=== PATIENT | male | born 1965 | race Caucasian/White ===

== ENCOUNTER → 2017-02-24 | Outpatient (REF) | payer OTHER ==
[~2017-02-24] MED LIST: ALLO100T PO; ASPI325T PO; DIGO0.126 PO; LISI5TAB PO; LOPR1TAB6 PO; LOPR50TA PO; METO25TA4 PO; PERC5TAB12 PO; XARE20TA PO
== END ==
LOC: M LAB REF 13:07
PROVIDERS: ATTEND Orthopaedic Surgery
DX: Z96.9 Presence of functional implant, unspecified (principal)

== ENCOUNTER 2017-07-14 15:01 | Inpatient (IN) | payer MEDICAID, OTHER, SELFPAY ==
[2017-07-14 16:36] LABS: BASO % 0.3 % (0.0-1.0); HEMATOCRIT 26.4 % (42.0-52.0); HEMOGLOBIN 8.8 g/dl (14.0-18.0); IMMATURE GRANULOCYTE # 0.1 10^3/uL (0-0); IMMATURE GRANULOCYTE % 0.4 % (0-0); LYMPH # 0.9 10^3/uL (1.5-4.5); LYMPH % 7.7 % (24.0-44.0); MEAN CORPUSCULAR HEMOGLOBIN 31.5 pg (27.0-33.0); MEAN CORPUSCULAR HGB CONC 33.3 g/dl (32.0-36.5); MEAN CORPUSCULAR VOLUME 94.6 fl (80.0-96.0); MONO # 1.2 10^3/uL (0.0-0.8); NEUTROPHILS # 9.1 10^3/uL (1.8-7.7); NEUTROPHILS % 80.6 % (36.0-66.0); PLATELET COUNT, AUTOMATED 182 10^3/uL (150-450); RED BLOOD COUNT 2.79 10^6/uL (4.30-6.10); RED CELL DISTRIBUTION WIDTH 12.8 % (11.5-14.5); WHITE BLOOD COUNT 11.3 10^3/uL (4.0-10.0)
[2017-07-14] MEDS: MORPHINE 4 MG/ML 1ML SYRINGE IV ×2 (17:00→19:10)
[2017-07-14] MEDS: NS 500 ML IV (17:00)
[2017-07-14 17:05] LABS: ALBUMIN 2.4 GM/DL (3.2-5.2); ALBUMIN/GLOBULIN RATIO 0.34 (1.00-1.93); ALKALINE PHOSPHATASE 59 U/L (45-117); ALT/SGPT 10 U/L (12-78); ANION GAP 11 MEQ/L (8-16); AST/SGOT 41 U/L (7-37); BILIRUBIN,DIRECT 0.3 MG/DL (0.0-0.2); BILIRUBIN,TOTAL 0.8 MG/DL (0.2-1.0); BLOOD UREA NITROGEN 13 MG/DL (7-18); CALCIUM LEVEL 8.5 MG/DL (8.5-10.1); CARBON DIOXIDE LEVEL 25 MEQ/L (21-32); CHLORIDE LEVEL 95 MEQ/L (98-107); CPK CREATINE PHOSPHOKINASE 38 U/L (39-308); CREATININE FOR GFR 1.09 MG/DL (0.70-1.30); FREE T4 1.66 NG/DL (0.76-1.46); GLOMERULAR FILTRATION RATE > 60.0 (>56); GLUCOSE, FASTING 142 MG/DL (70-105); MB/CK RELATIVE INDEX 2.63 (< OR =4); SODIUM LEVEL 131 MEQ/L (136-145); TOTAL PROTEIN 9.5 GM/DL (6.4-8.2); TROPONIN I < 0.02 NG/ML (< 0.10)
[2017-07-14 17:11] LABS: POTASSIUM SERUM 4.2 MEQ/L (3.5-5.1)
[2017-07-14] MEDS ORDERED: ISOVUE-370 76% 100ML VIAL (Q9967) As Ordered (17:20)
[2017-07-14] MEDS: ONDANSETRON 4MG/2ML VIAL (J2405) IV (17:20)
[2017-07-14 17:38] LABS: INR 1.36; PROTHROMBIN TIME 17.1 SECONDS (12.4-14.5)
[2017-07-14 17:39] LABS: PARTIAL THROMBOPLASTIN TIME 47.9 SECONDS (26.8-37.9)
[2017-07-14] MEDS: PIPERACILLIN/TAZOBACTAM SOD 3.375 GM in APPROPRIATE DILUENT 1 EA IV (19:55)
[2017-07-14] MEDS: VANCOMYCIN HCL 1,000 MG, VIAL MATE ADAPTER 1 EACH in D5W 250 ML IV (22:37)
[2017-07-14] MEDS: ACETAMINOPHEN TAB 650MG DOSE (2X325MG) PO (23:36)
[2017-07-14] MEDS: METOPROLOL TART 50 MG TAB PO (23:38)
[2017-07-14] MEDS: ALLOPURINOL 300 MG TAB PO (23:39)
[2017-07-15] MEDS: ACETAMINOPHEN TAB 650MG DOSE (2X325MG) PO ×2 (04:08→08:57)
[2017-07-15] MEDS: NS 1,000 ML IV ×3 (04:09→19:50)
[2017-07-15] MEDS: HEPARIN SOD (PORCINE) 5000 UNITS/ML VIAL SC ×3 (06:31→21:36)
[2017-07-15 06:33] LABS: BASO % 0.3 % (0.0-1.0); EOS % 0.2 % (0.0-3.0); HEMATOCRIT 24.6 % (42.0-52.0); IMMATURE GRANULOCYTE # 0.1 10^3/uL (0-0); IMMATURE GRANULOCYTE % 0.6 % (0-0); LYMPH % 8.2 % (24.0-44.0); MEAN CORPUSCULAR HEMOGLOBIN 30.9 pg (27.0-33.0); MEAN CORPUSCULAR HGB CONC 32.5 g/dl (32.0-36.5); MONO # 1.9 10^3/uL (0.0-0.8); MONO % 15.3 % (0.0-5.0); NEUTROPHILS # 9.1 10^3/uL (1.8-7.7); NEUTROPHILS % 75.4 % (36.0-66.0); PLATELET COUNT, AUTOMATED 170 10^3/uL (150-450); RED BLOOD COUNT 2.59 10^6/uL (4.30-6.10); RED CELL DISTRIBUTION WIDTH 13.1 % (11.5-14.5); WHITE BLOOD COUNT 12.1 10^3/uL (4.0-10.0)
[2017-07-15 06:47] LABS: ESTIMATED AVERAGE GLUCOSE 108 MG/DL (60-110); HEMOGLOBIN A1c 5.4 %
[2017-07-15 07:02] LABS: ANION GAP 8 MEQ/L (8-16); BLOOD UREA NITROGEN 15 MG/DL (7-18); CALCIUM LEVEL 8.6 MG/DL (8.5-10.1); CARBON DIOXIDE LEVEL 27 MEQ/L (21-32); CHLORIDE LEVEL 97 MEQ/L (98-107); CREATININE FOR GFR 1.24 MG/DL (0.70-1.30); FERRITIN 457 NG/ML (26-388); GLOMERULAR FILTRATION RATE > 60.0 (>56); GLUCOSE, FASTING 141 MG/DL (70-105); IRON (FE) 22 UG/DL (65-175); PERCENT SATURATION 10.5 % (19.7-50.0); POTASSIUM SERUM 3.6 MEQ/L (3.5-5.1); SODIUM LEVEL 132 MEQ/L (136-145); TOTAL IRON BINDING CAPACITY 209 UG/DL (250-450)
[2017-07-15] MEDS: VITAMIN D 1,000 INTERNATIONAL UNITS TABLET PO (08:53)
[2017-07-15] MEDS: PANTOPRAZOLE 40MG TAB (PROTONIX) PO (08:53)
[2017-07-15] MEDS: CYANOCOBALAMIN 500 MCG TAB PO (08:53)
[2017-07-15] MEDS: METOPROLOL TART 50 MG TAB PO ×2 (08:53→21:36)
[2017-07-15] MEDS: INFLUENZA QUADRIVALENT PF VACCINE 0.5ML SYRINGE (90686) IM (08:55)
[2017-07-15 11:07] LABS: VITAMIN B12 LEVEL 1179 PG/ML (247-911)
[2017-07-15 11:21] LABS: FOLATE 14.4 NG/ML (>5.4)
[2017-07-15] MEDS: PERCOCET 5MG/325MG TAB PO ×2 (14:25→19:49)
[2017-07-15 14:35] LABS: APPEARANCE, URINE CLOUDY (CLEAR); BACTERIA, URINE AUTO NEGATIVE (NEGATIVE); BILIRUBIN, URINE AUTO NEGATIVE (NEGATIVE); BLOOD, URINE BLOOD 3+ (NEGATIVE); COLOR, URINE YELLOW (YELLOW); GLUCOSE, URINE (UA) AUTO NEGATIVE (NEGATIVE); KETONE, URINE AUTO NEGATIVE (NEGATIVE); LEUKOCYTE ESTERASE, URINE AUTO 1+ (NEGATIVE); MUCUS, URINE SMALL (NEGATIVE); NITRITE, URINE AUTO NEGATIVE (NEGATIVE); PROTEIN, URINE AUTO NEGATIVE (NEGATIVE); RBC, URINE AUTO 19 /HPF (0-3); SPECIFIC GRAVITY URINE AUTO 1.013 (1.002-1.035); SQUAMOUS EPITHELIAL CELL UR AU 0 /HPF (0-6); UROBILINOGEN, URINE AUTO 0.2 mg/dL (0.0-2.0); WBC, URINE AUTO 22 /HPF (0-3)
[2017-07-15] MEDS ORDERED: IPRATROPIUM 0.5MG/ALBUTEROL 2.5MG INH SOL UD 3ML (DUONEB)(J7620) NEB (19:45)
[2017-07-15] MEDS ORDERED: VANCOMYCIN HCL 1,000 MG, VIAL MATE ADAPTER 1 EACH in D5W 250 ML IV (20:00)
[2017-07-15] MEDS ORDERED: SENNA 8.6 MG TAB (SENOKOT) PO (21:15)
[2017-07-15] MEDS: POTASSIUM CHLORIDE 10 MEQ SR TABLET PO (21:33)
[2017-07-15] MEDS: guaiFENesin 200 MG TAB PO (21:33)
[2017-07-15] MEDS: VANCOMYCIN HCL 1,000 MG, VIAL MATE ADAPTER 1 EACH in D5W 250 ML IV ×2 (21:37→22:54)
[2017-07-15] MEDS: ALLOPURINOL 300 MG TAB PO (21:37)
[2017-07-15] MEDS: NS 500 ML IV (21:39)
[2017-07-16] MEDS: PIPERACILLIN/TAZOBACTAM SOD 4.5 GM in APPROPRIATE DILUENT 1 EA IV ×4 (00:28→16:28)
[2017-07-16] MEDS: ACETAMINOPHEN TAB 650MG DOSE (2X325MG) PO (00:41)
[2017-07-16 01:12] LABS: BEDSIDE GLUCOSE 142 MG/DL (70-105)
[2017-07-16] MEDS: HEPARIN SOD (PORCINE) 5000 UNITS/ML VIAL SC (05:20)
[2017-07-16 06:30] LABS: BASO % 0.3 % (0.0-1.0); EOS # 0.1 10^3/uL (0.0-0.50); EOS % 1.4 % (0.0-3.0); HEMATOCRIT 22.3 % (42.0-52.0); HEMOGLOBIN 7.2 g/dl (14.0-18.0); IMMATURE GRANULOCYTE % 0.5 % (0-0); LYMPH % 13.7 % (24.0-44.0); MEAN CORPUSCULAR HGB CONC 32.3 g/dl (32.0-36.5); MEAN CORPUSCULAR VOLUME 96.1 fl (80.0-96.0); MONO % 14.1 % (0.0-5.0); NEUTROPHILS # 5.2 10^3/uL (1.8-7.7); PLATELET COUNT, AUTOMATED 119 10^3/uL (150-450); RED BLOOD COUNT 2.32 10^6/uL (4.30-6.10); RETIC HEMOGLOBIN EQUIVALENT 30.9 pg (24-36); RETICULOCYTE # 47.3 10^9/L (17-77); WHITE BLOOD COUNT 7.4 10^3/uL (4.0-10.0)
[2017-07-16 06:41] LABS: PROTHROMBIN TIME 17.5 SECONDS (12.4-14.5)
[2017-07-16 06:43] LABS: ANION GAP 6 MEQ/L (8-16); BLOOD UREA NITROGEN 14 MG/DL (7-18); CARBON DIOXIDE LEVEL 28 MEQ/L (21-32); CHLORIDE LEVEL 101 MEQ/L (98-107); CREATININE FOR GFR 1.11 MG/DL (0.70-1.30); GLOMERULAR FILTRATION RATE > 60.0 (>56); GLUCOSE, FASTING 118 MG/DL (70-105); POTASSIUM SERUM 3.6 MEQ/L (3.5-5.1); SODIUM LEVEL 135 MEQ/L (136-145)
[2017-07-16 06:47] LABS: LACTIC ACID SEPSIS PROTOCOL 0.8 MMOL/L (0.4-2.0)
[2017-07-16] MEDS: NS 1,000 ML IV ×3 (08:32→20:14)
[2017-07-16] MEDS: VANCOMYCIN HCL 1,000 MG, VIAL MATE ADAPTER 1 EACH in D5W 250 ML IV ×2 (08:32→20:14)
[2017-07-16] MEDS: CYCLOBENZAPRINE 5MG TABLET PO (08:33)
[2017-07-16] MEDS: VITAMIN D 1,000 INTERNATIONAL UNITS TABLET PO (08:34)
[2017-07-16] MEDS: METOPROLOL TART 50 MG TAB PO ×2 (08:34→20:20)
[2017-07-16] MEDS: guaiFENesin 200 MG TAB PO ×2 (08:34→20:16)
[2017-07-16] MEDS: CYANOCOBALAMIN 500 MCG TAB PO (08:34)
[2017-07-16] MEDS: PANTOPRAZOLE 40MG TAB (PROTONIX) PO (08:34)
[2017-07-16] MEDS: LIDOCAINE 5% (LIDODERM) PATCH TD (08:35)
[2017-07-16] MEDS: POTASSIUM CHLORIDE 10 MEQ SR TABLET PO (08:58)
[2017-07-16] MEDS ORDERED: ISOVUE-370 76% 100ML VIAL (Q9967) As Ordered (09:44)
[2017-07-16 09:51] LABS: RHEUMATOID FACTOR QUANT < 10.0 IU/ML (0-15.0)
[2017-07-16 10:06] LABS: ERYTHROCYTE SEDIMENTATION RATE 127 mm/hr (0-20)
[2017-07-16] MEDS: PERCOCET 5MG/325MG TAB PO ×2 (10:16→16:40)
[2017-07-16] MEDS ORDERED: PROHANCE 279.3MG/ML 5ML VIAL (A9576) As Ordered (12:53)
[2017-07-16] MEDS ORDERED: PROHANCE 279.3MG/ML 15ML VIAL (A9576) As Ordered (12:54)
[2017-07-16 14:53] LABS: HEMATOCRIT 25.9 % (42.0-52.0); HEMOGLOBIN 8.2 g/dl (14.0-18.0)
[2017-07-16] MEDS: ALLOPURINOL 300 MG TAB PO (20:17)
[2017-07-16] MEDS: **NOTE PATIENT COMMENT** MISC XX (20:20)
[2017-07-16 22:12] LABS: HEMATOCRIT 25.8 % (42.0-52.0); HEMOGLOBIN 8.2 g/dl (14.0-18.0)
[2017-07-17] MEDS: ACETAMINOPHEN TAB 650MG DOSE (2X325MG) PO (03:34)
[2017-07-17] MEDS: NS 1,000 ML IV ×2 (05:07→10:38)
[2017-07-17] MEDS: LIDOCAINE 5% (LIDODERM) PATCH TD (07:44)
[2017-07-17] MEDS: VANCOMYCIN HCL 1,000 MG, VIAL MATE ADAPTER 1 EACH in D5W 250 ML IV (07:44)
[2017-07-17] MEDS: CYANOCOBALAMIN 500 MCG TAB PO (07:46)
[2017-07-17] MEDS: guaiFENesin 200 MG TAB PO (07:46)
[2017-07-17] MEDS: VITAMIN D 1,000 INTERNATIONAL UNITS TABLET PO (07:46)
[2017-07-17] MEDS: PANTOPRAZOLE 40MG TAB (PROTONIX) PO (07:46)
[2017-07-17] MEDS: PERCOCET 5MG/325MG TAB PO ×3 (07:46→19:48)
[2017-07-17] MEDS: METOPROLOL TART 50 MG TAB PO ×2 (07:56→19:47)
[2017-07-17 09:51] LABS: BASO % 0.3 % (0.0-1.0); EOS # 0.1 10^3/uL (0.0-0.50); EOS % 1.1 % (0.0-3.0); HEMATOCRIT 21.8 % (42.0-52.0); IMMATURE GRANULOCYTE % 0.7 % (0-0); LYMPH # 0.8 10^3/uL (1.5-4.5); LYMPH % 12.5 % (24.0-44.0); MEAN CORPUSCULAR HEMOGLOBIN 30.7 pg (27.0-33.0); MEAN CORPUSCULAR HGB CONC 32.1 g/dl (32.0-36.5); MEAN CORPUSCULAR VOLUME 95.6 fl (80.0-96.0); MONO # 0.7 10^3/uL (0.0-0.8); MONO % 11.1 % (0.0-5.0); NEUTROPHILS # 4.5 10^3/uL (1.8-7.7); NEUTROPHILS % 74.3 % (36.0-66.0); PLATELET COUNT, AUTOMATED 122 10^3/uL (150-450); RED BLOOD COUNT 2.28 10^6/uL (4.30-6.10); RED CELL DISTRIBUTION WIDTH 12.9 % (11.5-14.5); WHITE BLOOD COUNT 6.1 10^3/uL (4.0-10.0)
[2017-07-17] MEDS ORDERED: CEFAZOLIN SOD 2 GM in APPROPRIATE DILUENT 1 EA IV (10:00)
[2017-07-17 10:15] LABS: ANION GAP 6 MEQ/L (8-16); BLOOD UREA NITROGEN 9 MG/DL (7-18); C REACTIVE PROTEIN QUANTITATIV 9.32 MG/DL (0.00-0.30); CALCIUM LEVEL 7.7 MG/DL (8.5-10.1); CARBON DIOXIDE LEVEL 27 MEQ/L (21-32); CHLORIDE LEVEL 104 MEQ/L (98-107); CREATININE FOR GFR 1.06 MG/DL (0.70-1.30); GLOMERULAR FILTRATION RATE > 60.0 (>56); GLUCOSE, FASTING 157 MG/DL (70-105); POTASSIUM SERUM 3.4 MEQ/L (3.5-5.1); SODIUM LEVEL 137 MEQ/L (136-145)
[2017-07-17 10:30] LABS: ERYTHROCYTE SEDIMENTATION RATE 126 mm/hr (0-20)
[2017-07-17 11:29] LABS: BEDSIDE GLUCOSE 137 MG/DL (70-105)
[2017-07-17] MEDS: POTASSIUM CHLORIDE 10 MEQ SR TABLET PO (12:44)
[2017-07-17] MEDS: GABAPENTIN 100 MG CAP PO ×2 (12:45→19:46)
[2017-07-17 13:25] LABS: KETONE, URINE AUTO RFX NEGATIVE (NEGATIVE); LEUKOCYTE ESTERASE UR AUTO RFX NEGATIVE (NEGATIVE); NITRITE, URINE AUTO RFX NEGATIVE (NEGATIVE); RBC, URINE AUTO RFX 18 /HPF (0-3); SPECIFIC GRAVITY UR AUTO RFX 1.006 (1.002-1.035); SQUAM EPITHELIAL CELL UR AURFX 0 /HPF (0-6); WBC, URINE AUTO RFX 5 /HPF (0-3)
[2017-07-17 16:55] LABS: BEDSIDE GLUCOSE 149 MG/DL (70-105)
[2017-07-17 17:35] LABS: HEPATITIS B SURFACE ANTIGEN NEGATIVE (NEGATIVE)
[2017-07-17 17:45] LABS: HIV 1&2 SCREEN CENTAUR NEGATIVE (NEGATIVE)
[2017-07-17 17:58] LABS: HEPATITIS C VIRUS ABY INDEX 0.2 INDEX (<0.8)
[2017-07-17 17:58] LABS: HEPATITIS B CORE ANTIBODY IGM NEGATIVE (NEGATIVE)
[2017-07-17] MEDS: guaiFENesin ER 600 MG TAB PO (19:46)
[2017-07-17] MEDS: ALLOPURINOL 300 MG TAB PO (19:46)
[2017-07-17] MEDS: **NOTE PATIENT COMMENT** MISC XX (19:47)
[2017-07-17] MEDS ORDERED: PROHANCE 279.3MG/ML 15ML VIAL (A9576) As Ordered (21:37)
[2017-07-17] MEDS ORDERED: PROHANCE 279.3MG/ML 5ML VIAL (A9576) As Ordered (21:37)
[2017-07-18] MEDS: PERCOCET 5MG/325MG TAB PO ×2 (04:13→10:35)
[2017-07-18 05:32] LABS: BASO % 0.3 % (0.0-1.0); EOS # 0.2 10^3/uL (0.0-0.50); EOS % 2.4 % (0.0-3.0); HEMATOCRIT 21.8 % (42.0-52.0); IMMATURE GRANULOCYTE % 0.6 % (0-0); LYMPH # 0.7 10^3/uL (1.5-4.5); MEAN CORPUSCULAR HEMOGLOBIN 31.3 pg (27.0-33.0); MEAN CORPUSCULAR HGB CONC 32.1 g/dl (32.0-36.5); MEAN CORPUSCULAR VOLUME 97.3 fl (80.0-96.0); MONO # 0.7 10^3/uL (0.0-0.8); MONO % 10.6 % (0.0-5.0); NEUTROPHILS # 4.7 10^3/uL (1.8-7.7); NEUTROPHILS % 75.1 % (36.0-66.0); PLATELET COUNT, AUTOMATED 128 10^3/uL (150-450); RED BLOOD COUNT 2.24 10^6/uL (4.30-6.10); RED CELL DISTRIBUTION WIDTH 12.8 % (11.5-14.5); WHITE BLOOD COUNT 6.2 10^3/uL (4.0-10.0)
[2017-07-18] MEDS: SODIUM CHLORIDE 0.9% INJ 10 ML SYR IV ×2 (06:00→18:04)
[2017-07-18 06:37] LABS: ANION GAP 6 MEQ/L (8-16); BLOOD UREA NITROGEN 6 MG/DL (7-18); CALCIUM LEVEL 7.7 MG/DL (8.5-10.1); CARBON DIOXIDE LEVEL 28 MEQ/L (21-32); CHLORIDE LEVEL 104 MEQ/L (98-107); CREATININE FOR GFR 0.96 MG/DL (0.70-1.30); GLOMERULAR FILTRATION RATE > 60.0 (>56); GLUCOSE, FASTING 118 MG/DL (70-105); IMMUNOGLOBULIN G 3260 MG/DL (681-1648); IMMUNOGLOBULIN M 75.6 MG/DL (40-230); POTASSIUM SERUM 3.6 MEQ/L (3.5-5.1); SODIUM LEVEL 138 MEQ/L (136-145)
[2017-07-18] MEDS: VITAMIN D 1,000 INTERNATIONAL UNITS TABLET PO (10:35)
[2017-07-18] MEDS: GABAPENTIN 100 MG CAP PO ×2 (10:35→20:05)
[2017-07-18] MEDS: CYANOCOBALAMIN 500 MCG TAB PO (10:35)
[2017-07-18] MEDS: PANTOPRAZOLE 40MG TAB (PROTONIX) PO (10:36)
[2017-07-18] MEDS: METOPROLOL TART 50 MG TAB PO ×2 (10:36→20:07)
[2017-07-18] MEDS: guaiFENesin ER 600 MG TAB PO ×2 (10:36→20:05)
[2017-07-18] MEDS: LIDOCAINE 5% (LIDODERM) PATCH TD (10:37)
[2017-07-18 12:11] LABS: BEDSIDE GLUCOSE 148 MG/DL (70-105)
[2017-07-18] MEDS ORDERED: ISOVUE-370 76% 100ML VIAL (Q9967) As Ordered (15:08)
[2017-07-18 16:45] LABS: BEDSIDE GLUCOSE 169 MG/DL (70-105)
[2017-07-18] MEDS: ALLOPURINOL 300 MG TAB PO (20:05)
[2017-07-18] MEDS: **NOTE PATIENT COMMENT** MISC XX (20:05)
[2017-07-18 22:04] LABS: BEDSIDE GLUCOSE 157 MG/DL (70-105)
[2017-07-19] MEDS: SODIUM CHLORIDE 0.9% INJ 10 ML SYR IV ×3 (03:34→18:23)
[2017-07-19 05:37] LABS: BASO % 0.4 % (0.0-1.0); EOS # 0.1 10^3/uL (0.0-0.50); EOS % 2.6 % (0.0-3.0); HEMATOCRIT 20.9 % (42.0-52.0); IMMATURE GRANULOCYTE % 0.6 % (0-0); LYMPH # 0.9 10^3/uL (1.5-4.5); LYMPH % 17.5 % (24.0-44.0); MEAN CORPUSCULAR HEMOGLOBIN 30.6 pg (27.0-33.0); MEAN CORPUSCULAR HGB CONC 31.6 g/dl (32.0-36.5); MEAN CORPUSCULAR VOLUME 96.8 fl (80.0-96.0); MONO # 0.5 10^3/uL (0.0-0.8); MONO % 10.2 % (0.0-5.0); NEUTROPHILS # 3.4 10^3/uL (1.8-7.7); NEUTROPHILS % 68.7 % (36.0-66.0); PLATELET COUNT, AUTOMATED 135 10^3/uL (150-450); RED BLOOD COUNT 2.16 10^6/uL (4.30-6.10); RED CELL DISTRIBUTION WIDTH 12.7 % (11.5-14.5); WHITE BLOOD COUNT 4.9 10^3/uL (4.0-10.0)
[2017-07-19 05:44] LABS: HEMOGLOBIN 6.6 g/dl (14.0-18.0)
[2017-07-19] MEDS: PERCOCET 5MG/325MG TAB PO ×3 (06:18→20:40)
[2017-07-19 06:38] LABS: ANION GAP 7 MEQ/L (8-16); BLOOD UREA NITROGEN 7 MG/DL (7-18); CALCIUM LEVEL 7.6 MG/DL (8.5-10.1); CARBON DIOXIDE LEVEL 28 MEQ/L (21-32); CHLORIDE LEVEL 105 MEQ/L (98-107); CREATININE FOR GFR 1.07 MG/DL (0.70-1.30); GLOMERULAR FILTRATION RATE > 60.0 (>56); GLUCOSE, FASTING 112 MG/DL (70-105); POTASSIUM SERUM 3.4 MEQ/L (3.5-5.1); SODIUM LEVEL 140 MEQ/L (136-145)
[2017-07-19 09:14] LABS: MAGNESIUM LEVEL 1.9 MG/DL (1.8-2.4)
[2017-07-19] MEDS: GABAPENTIN 100 MG CAP PO ×2 (09:22→20:39)
[2017-07-19] MEDS: VITAMIN D 1,000 INTERNATIONAL UNITS TABLET PO (09:22)
[2017-07-19] MEDS: guaiFENesin ER 600 MG TAB PO ×2 (09:22→20:39)
[2017-07-19] MEDS: PANTOPRAZOLE 40MG TAB (PROTONIX) PO (09:22)
[2017-07-19] MEDS: CYANOCOBALAMIN 500 MCG TAB PO (09:22)
[2017-07-19] MEDS: POTASSIUM CHLORIDE 10 MEQ SR TABLET PO (09:23)
[2017-07-19] MEDS: METOPROLOL TART 50 MG TAB PO ×2 (09:24→20:39)
[2017-07-19] MEDS: LIDOCAINE 5% (LIDODERM) PATCH TD (09:24)
[2017-07-19 11:42] LABS: IMMEDIATE SPIN CROSSMATCH 1 2
[2017-07-19 11:43] LABS: BEDSIDE GLUCOSE 163 MG/DL (70-105)
[2017-07-19] MEDS: ACETAMINOPHEN TAB 650MG DOSE (2X325MG) PO (14:12)
[2017-07-19 16:18] LABS: BEDSIDE GLUCOSE 141 MG/DL (70-105)
[2017-07-19] MEDS: ALLOPURINOL 300 MG TAB PO (20:39)
[2017-07-19] MEDS: **NOTE PATIENT COMMENT** MISC XX (20:41)
[2017-07-19 20:45] LABS: BEDSIDE GLUCOSE 169 MG/DL (70-105)
[2017-07-20] MEDS: PERCOCET 5MG/325MG TAB PO ×3 (05:11→20:46)
[2017-07-20] MEDS: SODIUM CHLORIDE 0.9% INJ 10 ML SYR IV ×2 (05:13→18:33)
[2017-07-20 05:23] LABS: BASO % 0.4 % (0.0-1.0); EOS # 0.3 10^3/uL (0.0-0.50); HEMATOCRIT 24.2 % (42.0-52.0); HEMOGLOBIN 7.9 g/dl (14.0-18.0); IMMATURE GRANULOCYTE % 0.6 % (0-0); LYMPH # 0.9 10^3/uL (1.5-4.5); LYMPH % 18.4 % (24.0-44.0); MEAN CORPUSCULAR HEMOGLOBIN 30.7 pg (27.0-33.0); MEAN CORPUSCULAR HGB CONC 32.6 g/dl (32.0-36.5); MEAN CORPUSCULAR VOLUME 94.2 fl (80.0-96.0); MONO # 0.6 10^3/uL (0.0-0.8); NEUTROPHILS # 3.2 10^3/uL (1.8-7.7); NEUTROPHILS % 64.6 % (36.0-66.0); PLATELET COUNT, AUTOMATED 167 10^3/uL (150-450); RED BLOOD COUNT 2.57 10^6/uL (4.30-6.10); RED CELL DISTRIBUTION WIDTH 13.5 % (11.5-14.5)
[2017-07-20 05:43] LABS: ANION GAP 5 MEQ/L (8-16); BLOOD UREA NITROGEN 9 MG/DL (7-18); CALCIUM LEVEL 7.6 MG/DL (8.5-10.1); CARBON DIOXIDE LEVEL 30 MEQ/L (21-32); CHLORIDE LEVEL 106 MEQ/L (98-107); CREATININE FOR GFR 1.05 MG/DL (0.70-1.30); GLOMERULAR FILTRATION RATE > 60.0 (>56); GLUCOSE, FASTING 111 MG/DL (70-105); POTASSIUM SERUM 3.5 MEQ/L (3.5-5.1); SODIUM LEVEL 141 MEQ/L (136-145)
[2017-07-20] MEDS: POTASSIUM CHLORIDE 10 MEQ SR TABLET PO (10:21)
[2017-07-20] MEDS: GABAPENTIN 100 MG CAP PO ×2 (10:21→20:44)
[2017-07-20] MEDS: guaiFENesin ER 600 MG TAB PO ×2 (10:22→20:44)
[2017-07-20] MEDS: METOPROLOL TART 50 MG TAB PO ×2 (10:22→20:44)
[2017-07-20] MEDS: CYANOCOBALAMIN 500 MCG TAB PO (10:24)
[2017-07-20] MEDS: VITAMIN D 1,000 INTERNATIONAL UNITS TABLET PO (10:24)
[2017-07-20] MEDS: PANTOPRAZOLE 40MG TAB (PROTONIX) PO (10:24)
[2017-07-20] MEDS: LIDOCAINE 5% (LIDODERM) PATCH TD (10:26)
[2017-07-20 12:06] LABS: BEDSIDE GLUCOSE 121 MG/DL (70-105)
[2017-07-20] MEDS ORDERED: CYCLOBENZAPRINE 5MG TABLET PO (15:15)
[2017-07-20 16:39] LABS: BEDSIDE GLUCOSE 165 MG/DL (70-105)
[2017-07-20 18:52] LABS: IMMUNOGLOBULIN G 3010 MG/DL (681-1648)
[2017-07-20] MEDS: ALLOPURINOL 300 MG TAB PO (20:44)
[2017-07-20] MEDS: **NOTE PATIENT COMMENT** MISC XX (20:46)
[2017-07-20 21:02] LABS: BEDSIDE GLUCOSE 158 MG/DL (70-105)
[2017-07-21] MEDS: SODIUM CHLORIDE 0.9% INJ 10 ML SYR IV ×3 (02:34→18:00)
[2017-07-21 06:03] LABS: HEMATOCRIT 25.8 % (42.0-52.0); HEMOGLOBIN 8.5 g/dl (14.0-18.0); RED BLOOD COUNT 2.73 10^6/uL (4.30-6.10)
[2017-07-21 06:04] LABS: BASO % 0.7 % (0.0-1.0); EOS # 0.2 10^3/uL (0.0-0.50); IMMATURE GRANULOCYTE % 0.7 % (0-0); LYMPH # 1.3 10^3/uL (1.5-4.5); LYMPH % 20.9 % (24.0-44.0); MEAN CORPUSCULAR HEMOGLOBIN 31.1 pg (27.0-33.0); MEAN CORPUSCULAR HGB CONC 32.9 g/dl (32.0-36.5); MEAN CORPUSCULAR VOLUME 94.5 fl (80.0-96.0); MONO # 0.5 10^3/uL (0.0-0.8); NEUTROPHILS # 3.9 10^3/uL (1.8-7.7); NEUTROPHILS % 64.7 % (36.0-66.0); PLATELET COUNT, AUTOMATED 186 10^3/uL (150-450); RED CELL DISTRIBUTION WIDTH 13.4 % (11.5-14.5)
[2017-07-21 06:05] LABS: ADD MANUAL DIFFER NO; DIFF SLIDE NUMBER 9
[2017-07-21 06:21] LABS: BLOOD UREA NITROGEN 8 MG/DL (7-18); GLUCOSE, FASTING 98 MG/DL (70-105)
[2017-07-21 06:22] LABS: ANION GAP 5 MEQ/L (8-16); C REACTIVE PROTEIN QUANTITATIV 5.27 MG/DL (0.00-0.30); CALCIUM LEVEL 8.2 MG/DL (8.5-10.1); CARBON DIOXIDE LEVEL 31 MEQ/L (21-32); CHLORIDE LEVEL 103 MEQ/L (98-107); GLOMERULAR FILTRATION RATE > 60.0 (>56); POTASSIUM SERUM 3.6 MEQ/L (3.5-5.1); SODIUM LEVEL 139 MEQ/L (136-145)
[2017-07-21] MEDS: PANTOPRAZOLE 40MG TAB (PROTONIX) PO (09:13)
[2017-07-21] MEDS: guaiFENesin ER 600 MG TAB PO ×2 (09:13→20:48)
[2017-07-21] MEDS: CYANOCOBALAMIN 500 MCG TAB PO (09:13)
[2017-07-21] MEDS: VITAMIN D 1,000 INTERNATIONAL UNITS TABLET PO (09:13)
[2017-07-21] MEDS: GABAPENTIN 100 MG CAP PO ×2 (09:13→20:48)
[2017-07-21] MEDS: METOPROLOL TART 50 MG TAB PO ×2 (09:13→20:48)
[2017-07-21] MEDS: LIDOCAINE 5% (LIDODERM) PATCH TD (09:13)
[2017-07-21] MEDS ORDERED: LIDOCAINE 1% MDV 20ML VIAL As Ordered (11:45)
[2017-07-21 11:48] LABS: BEDSIDE GLUCOSE 127 MG/DL (70-105)
[2017-07-21] MEDS ORDERED: MORPHINE 4 MG/ML 1ML SYRINGE As Ordered (11:50)
[2017-07-21] MEDS: MORPHINE 4 MG/ML 1ML SYRINGE IV (12:20)
[2017-07-21] MEDS: PERCOCET 5MG/325MG TAB PO ×2 (12:47→22:20)
[2017-07-21] MEDS ORDERED: ceFAZolin 2 GM/D5W 50 ML IV BAG (J0690 PER 500MG) As Ordered (16:51)
[2017-07-21 16:58] LABS: BEDSIDE GLUCOSE 109 MG/DL (70-105)
[2017-07-21] MEDS ORDERED: PROPOFOL 200 MG/20 ML VIAL As Ordered (17:26)
[2017-07-21] MEDS ORDERED: fentaNYL 100 MCG/2 ML INJECTION (J3010) As Ordered (17:27)
[2017-07-21] MEDS ORDERED: MIDAZOLAM INJ 5 MG/ML VIAL (J2250) As Ordered (17:27)
[2017-07-21] MEDS ORDERED: ONDANSETRON 4MG/2ML VIAL (J2405) IV (18:45)
[2017-07-21] MEDS: LR 1,000 ML IV (20:00)
[2017-07-21] MEDS: **NOTE PATIENT COMMENT** MISC XX (20:48)
[2017-07-21] MEDS: ALLOPURINOL 300 MG TAB PO (20:48)
[2017-07-22] MEDS: SODIUM CHLORIDE 0.9% INJ 10 ML SYR IV ×3 (01:31→18:00)
[2017-07-22 03:31] LABS: BEDSIDE GLUCOSE 109 MG/DL (70-105)
[2017-07-22 05:23] LABS: BASO % 0.3 % (0.0-1.0); EOS # 0.2 10^3/uL (0.0-0.50); EOS % 2.9 % (0.0-3.0); HEMATOCRIT 24.2 % (42.0-52.0); HEMOGLOBIN 7.8 g/dl (14.0-18.0); IMMATURE GRANULOCYTE # 0.1 10^3/uL (0-0); LYMPH # 1.1 10^3/uL (1.5-4.5); LYMPH % 19.6 % (24.0-44.0); MEAN CORPUSCULAR HEMOGLOBIN 31.3 pg (27.0-33.0); MEAN CORPUSCULAR HGB CONC 32.2 g/dl (32.0-36.5); MEAN CORPUSCULAR VOLUME 97.2 fl (80.0-96.0); MONO # 0.6 10^3/uL (0.0-0.8); MONO % 10.4 % (0.0-5.0); NEUTROPHILS # 3.8 10^3/uL (1.8-7.7); NEUTROPHILS % 65.8 % (36.0-66.0); PLATELET COUNT, AUTOMATED 169 10^3/uL (150-450); RED BLOOD COUNT 2.49 10^6/uL (4.30-6.10); RED CELL DISTRIBUTION WIDTH 13.4 % (11.5-14.5); WHITE BLOOD COUNT 5.8 10^3/uL (4.0-10.0)
[2017-07-22 06:20] LABS: ANION GAP 5 MEQ/L (8-16); BLOOD UREA NITROGEN 9 MG/DL (7-18); CARBON DIOXIDE LEVEL 31 MEQ/L (21-32); CHLORIDE LEVEL 104 MEQ/L (98-107); CREATININE FOR GFR 0.97 MG/DL (0.70-1.30); GLOMERULAR FILTRATION RATE > 60.0 (>56); GLUCOSE, FASTING 99 MG/DL (70-105); POTASSIUM SERUM 3.6 MEQ/L (3.5-5.1); SODIUM LEVEL 140 MEQ/L (136-145)
[2017-07-22] MEDS: PANTOPRAZOLE 40MG TAB (PROTONIX) PO (09:02)
[2017-07-22] MEDS: guaiFENesin ER 600 MG TAB PO ×2 (09:02→20:28)
[2017-07-22] MEDS: GABAPENTIN 100 MG CAP PO ×2 (09:02→20:28)
[2017-07-22] MEDS: VITAMIN D 1,000 INTERNATIONAL UNITS TABLET PO (09:02)
[2017-07-22] MEDS: CYANOCOBALAMIN 500 MCG TAB PO (09:03)
[2017-07-22] MEDS: METOPROLOL TART 50 MG TAB PO ×2 (09:04→20:28)
[2017-07-22] MEDS: LIDOCAINE 5% (LIDODERM) PATCH TD (09:05)
[2017-07-22] MEDS: PERCOCET 5MG/325MG TAB PO ×3 (09:14→20:32)
[2017-07-22 12:22] LABS: BEDSIDE GLUCOSE 182 MG/DL (70-105)
[2017-07-22] MEDS: POTASSIUM CHLORIDE 10 MEQ SR TABLET PO (13:00)
[2017-07-22] MEDS: NS 1,000 ML IV (13:08)
[2017-07-22 15:18] LABS: IMMEDIATE SPIN CROSSMATCH 1 2
[2017-07-22] MEDS ORDERED: ceFAZolin 2 GM/D5W 50 ML IV BAG (J0690 PER 500MG) (15:23)
[2017-07-22 16:58] LABS: BEDSIDE GLUCOSE 145 MG/DL (70-105)
[2017-07-22] MEDS: ALLOPURINOL 300 MG TAB PO (20:28)
[2017-07-22] MEDS: **NOTE PATIENT COMMENT** MISC XX (20:28)
[2017-07-23] MEDS: SODIUM CHLORIDE 0.9% INJ 10 ML SYR IV ×2 (05:17→19:46)
[2017-07-23 05:29] LABS: BASO % 0.4 % (0.0-1.0); EOS # 0.2 10^3/uL (0.0-0.50); EOS % 3.8 % (0.0-3.0); HEMATOCRIT 27.8 % (42.0-52.0); IMMATURE GRANULOCYTE % 0.8 % (0-0); LYMPH # 1.1 10^3/uL (1.5-4.5); LYMPH % 20.2 % (24.0-44.0); MEAN CORPUSCULAR HEMOGLOBIN 30.4 pg (27.0-33.0); MEAN CORPUSCULAR HGB CONC 32.4 g/dl (32.0-36.5); MEAN CORPUSCULAR VOLUME 93.9 fl (80.0-96.0); MONO # 0.5 10^3/uL (0.0-0.8); MONO % 8.7 % (0.0-5.0); NEUTROPHILS # 3.5 10^3/uL (1.8-7.7); NEUTROPHILS % 66.1 % (36.0-66.0); PLATELET COUNT, AUTOMATED 181 10^3/uL (150-450); RED BLOOD COUNT 2.96 10^6/uL (4.30-6.10); RED CELL DISTRIBUTION WIDTH 14.9 % (11.5-14.5); WHITE BLOOD COUNT 5.3 10^3/uL (4.0-10.0)
[2017-07-23 05:43] LABS: ANION GAP 3 MEQ/L (8-16); BLOOD UREA NITROGEN 9 MG/DL (7-18); CALCIUM LEVEL 8.4 MG/DL (8.5-10.1); CARBON DIOXIDE LEVEL 33 MEQ/L (21-32); CHLORIDE LEVEL 103 MEQ/L (98-107); CREATININE FOR GFR 1.05 MG/DL (0.70-1.30); GLOMERULAR FILTRATION RATE > 60.0 (>56); GLUCOSE, FASTING 107 MG/DL (70-105); POTASSIUM SERUM 3.5 MEQ/L (3.5-5.1); SODIUM LEVEL 139 MEQ/L (136-145)
[2017-07-23] MEDS: FUROSEMIDE 40 MG TAB PO (06:40)
[2017-07-23] MEDS: POTASSIUM CHLORIDE 10 MEQ SR TABLET PO (06:40)
[2017-07-23 06:51] LABS: NT-PRO BNP 807 PG/ML (<125)
[2017-07-23 08:46] LABS: REASON FOR REVIEW COMPREHENSIVE REVIEW; SLIDE REVIEW Report; SOURCE PERIPHERAL SMEAR
[2017-07-23 08:50] LABS: BEDSIDE GLUCOSE 106 MG/DL (70-105)
[2017-07-23] MEDS: METOPROLOL TART 50 MG TAB PO ×2 (09:00→20:19)
[2017-07-23] MEDS: VITAMIN D 1,000 INTERNATIONAL UNITS TABLET PO (09:12)
[2017-07-23] MEDS: GABAPENTIN 100 MG CAP PO ×2 (09:12→20:15)
[2017-07-23] MEDS: CYANOCOBALAMIN 500 MCG TAB PO (09:12)
[2017-07-23] MEDS: guaiFENesin ER 600 MG TAB PO ×2 (09:13→20:15)
[2017-07-23] MEDS: PANTOPRAZOLE 40MG TAB (PROTONIX) PO (09:13)
[2017-07-23] MEDS: LIDOCAINE 5% (LIDODERM) PATCH TD (09:17)
[2017-07-23 11:59] LABS: INR 1.25
[2017-07-23 12:00] LABS: ALBUMIN 1.9 GM/DL (3.2-5.2); ALBUMIN/GLOBULIN RATIO 0.33 (1.00-1.93); ALKALINE PHOSPHATASE 56 U/L (45-117); ALT/SGPT < 6 U/L (12-78); AST/SGOT 27 U/L (7-37); BILIRUBIN,DIRECT 0.2 MG/DL (0.0-0.2); BILIRUBIN,TOTAL 0.4 MG/DL (0.2-1.0); TOTAL PROTEIN 7.7 GM/DL (6.4-8.2)
[2017-07-23] MEDS: PERCOCET 5MG/325MG TAB PO ×2 (12:03→17:43)
[2017-07-23 12:16] LABS: BEDSIDE GLUCOSE 188 MG/DL (70-105)
[2017-07-23 17:09] LABS: BEDSIDE GLUCOSE 127 MG/DL (70-105)
[2017-07-23] MEDS: ALLOPURINOL 300 MG TAB PO (20:15)
[2017-07-23] MEDS: **NOTE PATIENT COMMENT** MISC XX (20:48)
[2017-07-24] MEDS: PERCOCET 5MG/325MG TAB PO ×4 (02:32→21:01)
[2017-07-24] MEDS: SODIUM CHLORIDE 0.9% INJ 10 ML SYR IV ×3 (05:27→23:13)
[2017-07-24 05:44] LABS: BASO % 0.3 % (0.0-1.0); EOS # 0.2 10^3/uL (0.0-0.50); EOS % 3.4 % (0.0-3.0); HEMATOCRIT 27.4 % (42.0-52.0); HEMOGLOBIN 8.9 g/dl (14.0-18.0); IMMATURE GRANULOCYTE % 0.7 % (0-0); LYMPH # 1.1 10^3/uL (1.5-4.5); MEAN CORPUSCULAR HEMOGLOBIN 30.6 pg (27.0-33.0); MEAN CORPUSCULAR HGB CONC 32.5 g/dl (32.0-36.5); MEAN CORPUSCULAR VOLUME 94.2 fl (80.0-96.0); MONO # 0.6 10^3/uL (0.0-0.8); MONO % 9.3 % (0.0-5.0); NEUTROPHILS # 4.2 10^3/uL (1.8-7.7); NEUTROPHILS % 68.3 % (36.0-66.0); PLATELET COUNT, AUTOMATED 174 10^3/uL (150-450); RED BLOOD COUNT 2.91 10^6/uL (4.30-6.10); RED CELL DISTRIBUTION WIDTH 14.8 % (11.5-14.5); WHITE BLOOD COUNT 6.1 10^3/uL (4.0-10.0)
[2017-07-24 06:08] LABS: PARTIAL THROMBOPLASTIN TIME 57.5 SECONDS (26.8-37.9)
[2017-07-24 06:18] LABS: ANION GAP 4 MEQ/L (8-16); BLOOD UREA NITROGEN 9 MG/DL (7-18); CALCIUM LEVEL 8.3 MG/DL (8.5-10.1); CARBON DIOXIDE LEVEL 33 MEQ/L (21-32); CHLORIDE LEVEL 103 MEQ/L (98-107); CREATININE FOR GFR 1.04 MG/DL (0.70-1.30); GLOMERULAR FILTRATION RATE > 60.0 (>56); GLUCOSE, FASTING 112 MG/DL (70-105); POTASSIUM SERUM 3.7 MEQ/L (3.5-5.1); SODIUM LEVEL 140 MEQ/L (136-145)
[2017-07-24] MEDS: CYANOCOBALAMIN 500 MCG TAB PO (09:29)
[2017-07-24] MEDS: VITAMIN D 1,000 INTERNATIONAL UNITS TABLET PO (09:29)
[2017-07-24] MEDS: METOPROLOL TART 50 MG TAB PO ×2 (09:29→21:00)
[2017-07-24] MEDS: PANTOPRAZOLE 40MG TAB (PROTONIX) PO (09:30)
[2017-07-24] MEDS: guaiFENesin ER 600 MG TAB PO ×2 (09:30→20:59)
[2017-07-24] MEDS: GABAPENTIN 400 MG CAP PO ×3 (09:33→21:00)
[2017-07-24] MEDS: FUROSEMIDE 40 MG TAB PO (11:01)
[2017-07-24 12:41] LABS: BEDSIDE GLUCOSE 100 MG/DL (70-105)
[2017-07-24 14:16] LABS: HEPARIN INDUCED PLATELET ABY 0.885 OD (0.000-0.400)
[2017-07-24] MEDS ORDERED: PERCOCET 5MG/325MG TAB PO (16:30)
[2017-07-24 16:46] LABS: BEDSIDE GLUCOSE 131 MG/DL (70-105)
[2017-07-24 20:17] LABS: BEDSIDE GLUCOSE 151 MG/DL (70-105)
[2017-07-24] MEDS: **NOTE PATIENT COMMENT** MISC XX (21:00)
[2017-07-24] MEDS: ALLOPURINOL 300 MG TAB PO (21:00)
[2017-07-25] MEDS: PERCOCET 5MG/325MG TAB PO ×4 (02:34→22:17)
[2017-07-25] MEDS: SODIUM CHLORIDE 0.9% INJ 10 ML SYR IV ×2 (05:17→17:44)
[2017-07-25 05:34] LABS: BASO % 0.3 % (0.0-1.0); EOS # 0.2 10^3/uL (0.0-0.50); EOS % 3.2 % (0.0-3.0); HEMATOCRIT 29.1 % (42.0-52.0); HEMOGLOBIN 9.4 g/dl (14.0-18.0); IMMATURE GRANULOCYTE # 0.1 10^3/uL (0-0); IMMATURE GRANULOCYTE % 0.7 % (0-0); LYMPH % 14.3 % (24.0-44.0); MEAN CORPUSCULAR HEMOGLOBIN 30.3 pg (27.0-33.0); MEAN CORPUSCULAR HGB CONC 32.3 g/dl (32.0-36.5); MEAN CORPUSCULAR VOLUME 93.9 fl (80.0-96.0); MONO # 0.6 10^3/uL (0.0-0.8); MONO % 8.8 % (0.0-5.0); NEUTROPHILS # 5.3 10^3/uL (1.8-7.7); NEUTROPHILS % 72.7 % (36.0-66.0); PLATELET COUNT, AUTOMATED 189 10^3/uL (150-450); RED CELL DISTRIBUTION WIDTH 14.3 % (11.5-14.5); WHITE BLOOD COUNT 7.3 10^3/uL (4.0-10.0)
[2017-07-25 06:07] LABS: ANION GAP 5 MEQ/L (8-16); BLOOD UREA NITROGEN 9 MG/DL (7-18); CALCIUM LEVEL 8.1 MG/DL (8.5-10.1); CARBON DIOXIDE LEVEL 33 MEQ/L (21-32); CHLORIDE LEVEL 101 MEQ/L (98-107); CREATININE FOR GFR 1.02 MG/DL (0.70-1.30); GLOMERULAR FILTRATION RATE > 60.0 (>56); GLUCOSE, FASTING 128 MG/DL (70-105); POTASSIUM SERUM 3.6 MEQ/L (3.5-5.1); SODIUM LEVEL 139 MEQ/L (136-145)
[2017-07-25 08:06] LABS: IgG SERUM (part of Subclasses) 3215 mg/dL (700-1600); IgG Subclass 1 2110 mg/dL (248-810); IgG Subclass 2 632 mg/dL (130-555); IgG Subclass 3 202 mg/dL (15-102); IgG Subclass 4 263 mg/dL (2-96)
[2017-07-25] MEDS: POTASSIUM CHLORIDE 10 MEQ SR TABLET PO (08:44)
[2017-07-25] MEDS: GABAPENTIN 400 MG CAP PO ×3 (08:46→22:14)
[2017-07-25] MEDS: CYANOCOBALAMIN 500 MCG TAB PO (08:46)
[2017-07-25] MEDS: PANTOPRAZOLE 40MG TAB (PROTONIX) PO (08:46)
[2017-07-25] MEDS: LISINOPRIL 5 MG TAB PO (08:48)
[2017-07-25] MEDS: guaiFENesin ER 600 MG TAB PO ×2 (08:48→22:14)
[2017-07-25] MEDS: METOPROLOL TART 50 MG TAB PO ×2 (08:48→22:14)
[2017-07-25] MEDS: VITAMIN D 1,000 INTERNATIONAL UNITS TABLET PO (08:50)
[2017-07-25 11:59] LABS: BEDSIDE GLUCOSE 119 MG/DL (70-105)
[2017-07-25 17:17] LABS: BEDSIDE GLUCOSE 194 MG/DL (70-105)
[2017-07-25] MEDS: **NOTE PATIENT COMMENT** MISC XX ×2 (21:00)
[2017-07-25 21:04] LABS: BEDSIDE GLUCOSE 152 MG/DL (70-105)
[2017-07-25] MEDS: ALLOPURINOL 300 MG TAB PO (22:12)
[2017-07-26] MEDS: SODIUM CHLORIDE 0.9% INJ 10 ML SYR IV ×2 (05:19→16:24)
[2017-07-26] MEDS: PERCOCET 5MG/325MG TAB PO ×3 (05:24→20:15)
[2017-07-26 05:56] LABS: BASO % 0.6 % (0.0-1.0); EOS # 0.2 10^3/uL (0.0-0.50); EOS % 3.5 % (0.0-3.0); HEMATOCRIT 28.2 % (42.0-52.0); IMMATURE GRANULOCYTE % 0.6 % (0-0); LYMPH # 1.3 10^3/uL (1.5-4.5); LYMPH % 19.9 % (24.0-44.0); MEAN CORPUSCULAR HEMOGLOBIN 30.3 pg (27.0-33.0); MEAN CORPUSCULAR HGB CONC 31.9 g/dl (32.0-36.5); MEAN CORPUSCULAR VOLUME 94.9 fl (80.0-96.0); MONO # 0.7 10^3/uL (0.0-0.8); MONO % 11.2 % (0.0-5.0); NEUTROPHILS # 4.3 10^3/uL (1.8-7.7); NEUTROPHILS % 64.2 % (36.0-66.0); PLATELET COUNT, AUTOMATED 193 10^3/uL (150-450); RED BLOOD COUNT 2.97 10^6/uL (4.30-6.10); RED CELL DISTRIBUTION WIDTH 14.3 % (11.5-14.5); WHITE BLOOD COUNT 6.6 10^3/uL (4.0-10.0)
[2017-07-26 06:08] LABS: ANION GAP 4 MEQ/L (8-16); BLOOD UREA NITROGEN 12 MG/DL (7-18); CALCIUM LEVEL 7.9 MG/DL (8.5-10.1); CARBON DIOXIDE LEVEL 34 MEQ/L (21-32); CHLORIDE LEVEL 101 MEQ/L (98-107); CREATININE FOR GFR 1.08 MG/DL (0.70-1.30); GLOMERULAR FILTRATION RATE > 60.0 (>56); GLUCOSE, FASTING 120 MG/DL (70-105); POTASSIUM SERUM 3.5 MEQ/L (3.5-5.1); SODIUM LEVEL 139 MEQ/L (136-145)
[2017-07-26] MEDS: guaiFENesin ER 600 MG TAB PO ×2 (09:48→20:13)
[2017-07-26] MEDS: PANTOPRAZOLE 40MG TAB (PROTONIX) PO (09:48)
[2017-07-26] MEDS: VITAMIN D 1,000 INTERNATIONAL UNITS TABLET PO (09:48)
[2017-07-26] MEDS: CYANOCOBALAMIN 500 MCG TAB PO (09:49)
[2017-07-26] MEDS: GABAPENTIN 400 MG CAP PO ×3 (09:49→20:13)
[2017-07-26] MEDS: METOPROLOL TART 50 MG TAB PO ×2 (09:50→20:14)
[2017-07-26] MEDS: LISINOPRIL 5 MG TAB PO (09:50)
[2017-07-26 11:41] LABS: BEDSIDE GLUCOSE 129 MG/DL (70-105)
[2017-07-26] MEDS: ALLOPURINOL 300 MG TAB PO (20:13)
[2017-07-26] MEDS: **NOTE PATIENT COMMENT** MISC XX (21:00)
[2017-07-27] MEDS: SODIUM CHLORIDE 0.9% INJ 10 ML SYR IV ×2 (05:04→18:39)
[2017-07-27 05:26] LABS: BASO % 0.5 % (0.0-1.0); EOS # 0.2 10^3/uL (0.0-0.50); EOS % 3.7 % (0.0-3.0); HEMATOCRIT 27.5 % (42.0-52.0); HEMOGLOBIN 8.8 g/dl (14.0-18.0); IMMATURE GRANULOCYTE # 0.1 10^3/uL (0-0); IMMATURE GRANULOCYTE % 0.8 % (0-0); LYMPH # 1.3 10^3/uL (1.5-4.5); LYMPH % 19.5 % (24.0-44.0); MEAN CORPUSCULAR HEMOGLOBIN 30.4 pg (27.0-33.0); MEAN CORPUSCULAR VOLUME 95.2 fl (80.0-96.0); MONO # 0.7 10^3/uL (0.0-0.8); MONO % 10.4 % (0.0-5.0); NEUTROPHILS # 4.3 10^3/uL (1.8-7.7); NEUTROPHILS % 65.1 % (36.0-66.0); PLATELET COUNT, AUTOMATED 170 10^3/uL (150-450); RED BLOOD COUNT 2.89 10^6/uL (4.30-6.10); RED CELL DISTRIBUTION WIDTH 14.2 % (11.5-14.5); WHITE BLOOD COUNT 6.6 10^3/uL (4.0-10.0)
[2017-07-27 06:03] LABS: ANION GAP 5 MEQ/L (8-16); BLOOD UREA NITROGEN 13 MG/DL (7-18); CALCIUM LEVEL 7.9 MG/DL (8.5-10.1); CARBON DIOXIDE LEVEL 32 MEQ/L (21-32); CHLORIDE LEVEL 100 MEQ/L (98-107); CREATININE FOR GFR 1.22 MG/DL (0.70-1.30); GLOMERULAR FILTRATION RATE > 60.0 (>56); GLUCOSE, FASTING 108 MG/DL (70-105); POTASSIUM SERUM 3.5 MEQ/L (3.5-5.1); SODIUM LEVEL 137 MEQ/L (136-145)
[2017-07-27 07:04] LABS: BEDSIDE GLUCOSE 115 MG/DL (70-105)
[2017-07-27 07:04] LABS: BEDSIDE GLUCOSE 164 MG/DL (70-105)
[2017-07-27] MEDS: VITAMIN D 1,000 INTERNATIONAL UNITS TABLET PO (08:17)
[2017-07-27] MEDS: PANTOPRAZOLE 40MG TAB (PROTONIX) PO (08:17)
[2017-07-27] MEDS: GABAPENTIN 400 MG CAP PO ×3 (08:17→20:59)
[2017-07-27] MEDS: CYANOCOBALAMIN 500 MCG TAB PO (08:17)
[2017-07-27] MEDS: guaiFENesin ER 600 MG TAB PO ×2 (08:18→20:59)
[2017-07-27] MEDS: PERCOCET 5MG/325MG TAB PO ×3 (08:18→22:25)
[2017-07-27] MEDS: METOPROLOL TART 50 MG TAB PO ×2 (08:22→20:58)
[2017-07-27] MEDS: LISINOPRIL 5 MG TAB PO (08:22)
[2017-07-27 12:20] LABS: BEDSIDE GLUCOSE 136 MG/DL (70-105)
[2017-07-27] MEDS: ACETAMINOPHEN TAB 650MG DOSE (2X325MG) PO (17:18)
[2017-07-27 17:23] LABS: BEDSIDE GLUCOSE 130 MG/DL (70-105)
[2017-07-27 20:55] LABS: BEDSIDE GLUCOSE 133 MG/DL (70-105)
[2017-07-27] MEDS: ALLOPURINOL 300 MG TAB PO (20:59)
[2017-07-27] MEDS: **NOTE PATIENT COMMENT** MISC XX (20:59)
[2017-07-27] MEDS: COLCHICINE 0.6 MG TAB PO (22:22)
[2017-07-28] MEDS: SODIUM CHLORIDE 0.9% INJ 10 ML SYR IV ×3 (00:09→12:59)
[2017-07-28] MEDS: PERCOCET 5MG/325MG TAB PO (06:39)
[2017-07-28 07:09] LABS: BEDSIDE GLUCOSE 127 MG/DL (70-105)
[2017-07-28] MEDS: guaiFENesin ER 600 MG TAB PO (08:24)
[2017-07-28] MEDS: VITAMIN D 1,000 INTERNATIONAL UNITS TABLET PO (08:24)
[2017-07-28] MEDS: COLCHICINE 0.6 MG TAB PO (08:24)
[2017-07-28] MEDS: PANTOPRAZOLE 40MG TAB (PROTONIX) PO (08:25)
[2017-07-28] MEDS: CYANOCOBALAMIN 500 MCG TAB PO (08:25)
[2017-07-28] MEDS: GABAPENTIN 400 MG CAP PO (08:25)
[2017-07-28] MEDS: METOPROLOL TART 50 MG TAB PO (08:25)
[2017-07-28] MEDS: LISINOPRIL 5 MG TAB PO (08:25)
[2017-07-28] MEDS: DULoxetine 30 MG CAP (CYMBALTA) PO (10:56)
[2017-07-28] MEDS: OXYMETAZOLINE NASAL SPRAY (AFRIN) (12:54)
[2017-07-28] MEDS: ONDANSETRON 4MG/2ML VIAL (J2405) IV (12:58)
== END 2017-07-28 14:46 | disposition home health service (06) | DRG 710 ==
LOC: M MSPAV 07-22 20:00 → M ED 15:01 → M ED INP 20:32 → M MSPAV 22:48
PROC: B246ZZ4 Ultrasonography of Right and Left Heart, Transesophageal (ICD-10-PCS; principal; 2017-07-21 17:00)
PROC: 0K9 Muscles, Drainage (ICD-10-PCS; 2017-07-21 17:20)
PROC: 02HV33Z Insertion of Infusion Device into Superior Vena Cava, Percutaneous Approach (ICD-10-PCS; 2017-07-21 17:20)
PROC: 30253N1 (ICD-10-PCS; 2017-07-21 17:20)
DX: A41.01 Sepsis due to Methicillin susceptible Staphylococcus aureus (principal); J18.9 Pneumonia, unspecified organism; M00.812 Arthritis due to other bacteria, left shoulder; D75.82 Heparin induced thrombocytopenia (HIT); E86.0 Dehydration; M00.88 Arthritis due to other bacteria, vertebrae; I10 Essential (primary) hypertension; D50.0 Iron deficiency anemia secondary to blood loss (chronic); R65.20 Severe sepsis without septic shock; E11.9 Type 2 diabetes mellitus without complications; M10.9 Gout, unspecified; G47.33 Obstructive sleep apnea (adult) (pediatric); Y95 Nosocomial condition; M46.56 Other infective spondylopathies, lumbar region; F32.9 Major depressive disorder, single episode, unspecified; F10.20 Alcohol dependence, uncomplicated; Z79.4 Long term (current) use of insulin; Z79.899 Other long term (current) drug therapy

== ENCOUNTER → 2017-08-13 | Outpatient (REF) | payer OTHER ==
[2017-08-13 19:44] LABS: AMORPHOUS SEDIMENT SMALL (NEGATIVE); APPEARANCE, URINE CLEAR (CLEAR); BACTERIA, URINE AUTO NEGATIVE (NEGATIVE); BILIRUBIN, URINE AUTO NEGATIVE (NEGATIVE); BLOOD, URINE BLOOD 3+ (NEGATIVE); COLOR, URINE YELLOW (YELLOW); GLUCOSE, URINE (UA) AUTO NEGATIVE (NEGATIVE); KETONE, URINE AUTO NEGATIVE (NEGATIVE); LEUKOCYTE ESTERASE, URINE AUTO NEGATIVE (NEGATIVE); MUCUS, URINE SMALL (NEGATIVE); NITRITE, URINE AUTO NEGATIVE (NEGATIVE); PROTEIN, URINE AUTO NEGATIVE (NEGATIVE); RBC, URINE AUTO 82 /HPF (0-3); SPECIFIC GRAVITY URINE AUTO 1.011 (1.002-1.035); SQUAMOUS EPITHELIAL CELL UR AU 0 /HPF (0-6); UROBILINOGEN, URINE AUTO 0.2 mg/dL (0.0-2.0); WBC, URINE AUTO 3 /HPF (0-3)
== END ==
LOC: M SMT 17:32
DX: R31.0 Gross hematuria (principal)
CPT/HCPCS: 81001

== ENCOUNTER → 2017-09-07 | Outpatient (REF) | payer OTHER ==
[2017-09-07 17:55] LABS: TOTAL T3 105.5 NG/DL (60.0-181.0)
[2017-09-07 18:02] LABS: ALBUMIN 3.2 GM/DL (3.2-5.2); ALBUMIN/GLOBULIN RATIO 0.59 (1.00-1.93); ALKALINE PHOSPHATASE 62 U/L (45-117); ALT/SGPT 16 U/L (12-78); ANION GAP 7 MEQ/L (8-16); AST/SGOT 32 U/L (7-37); BILIRUBIN,TOTAL 0.5 MG/DL (0.2-1.0); BLOOD UREA NITROGEN 11 MG/DL (7-18); C REACTIVE PROTEIN QUANTITATIV 0.73 MG/DL (0.00-0.30); CALCIUM LEVEL 8.9 MG/DL (8.5-10.1); CARBON DIOXIDE LEVEL 29 MEQ/L (21-32); CHLORIDE LEVEL 105 MEQ/L (98-107); CREATININE FOR GFR 1.16 MG/DL (0.70-1.30); FREE T4 1.08 NG/DL (0.76-1.46); GLOMERULAR FILTRATION RATE > 60.0 (>56); GLUCOSE, FASTING 123 MG/DL (70-100); SODIUM LEVEL 141 MEQ/L (136-145); TOTAL PROTEIN 8.6 GM/DL (6.4-8.2); URIC ACID 6.3 MG/DL (3.5-7.2)
[2017-09-07 18:07] LABS: BASO % 0.3 % (0.0-1.0); EOS # 0.4 10^3/uL (0.0-0.50); EOS % 5.8 % (0.0-3.0); HEMATOCRIT 28.9 % (42.0-52.0); HEMOGLOBIN 9.3 g/dl (14.0-18.0); IMMATURE GRANULOCYTE % 0.5 % (0-3.0); LYMPH # 1.2 10^3/uL (1.5-4.5); LYMPH % 20.3 % (24.0-44.0); MEAN CORPUSCULAR HEMOGLOBIN 30.3 pg (27.0-33.0); MEAN CORPUSCULAR HGB CONC 32.2 g/dl (32.0-36.5); MEAN CORPUSCULAR VOLUME 94.1 fl (80.0-96.0); MONO # 0.6 10^3/uL (0.0-0.8); MONO % 10.5 % (0.0-5.0); NEUTROPHILS # 3.8 10^3/uL (1.8-7.7); NEUTROPHILS % 62.6 % (36.0-66.0); PLATELET COUNT, AUTOMATED 152 10^3/uL (150-450); RED BLOOD COUNT 3.07 10^6/uL (4.30-6.10); RED CELL DISTRIBUTION WIDTH 14.7 % (11.5-14.5)
[2017-09-07 18:34] LABS: ERYTHROCYTE SEDIMENTATION RATE 126 mm/hr (0-20)
== END ==
LOC: M SFHCPLAZ 13:51
DX: A41.01 Sepsis due to Methicillin susceptible Staphylococcus aureus (principal); M10.9 Gout, unspecified; R94.6 Abnormal results of thyroid function studies

== ENCOUNTER → 2017-10-05 | Outpatient (REF) | payer OTHER ==
[2017-10-05 13:09] LABS: BASO % 0.4 % (0.0-1.0); EOS # 0.3 10^3/uL (0.0-0.50); EOS % 3.7 % (0.0-3.0); HEMATOCRIT 27.3 % (42.0-52.0); IMMATURE GRANULOCYTE % 0.6 % (0-3.0); LYMPH # 1.2 10^3/uL (1.5-4.5); LYMPH % 16.6 % (24.0-44.0); MEAN CORPUSCULAR HEMOGLOBIN 30.9 pg (27.0-33.0); MEAN CORPUSCULAR VOLUME 93.8 fl (80.0-96.0); MONO # 0.5 10^3/uL (0.0-0.8); NEUTROPHILS % 71.7 % (36.0-66.0); PLATELET COUNT, AUTOMATED 163 10^3/uL (150-450); RED BLOOD COUNT 2.91 10^6/uL (4.30-6.10); RED CELL DISTRIBUTION WIDTH 14.1 % (11.5-14.5)
[2017-10-05 13:42] LABS: C REACTIVE PROTEIN QUANTITATIV 0.92 MG/DL (0.00-0.30)
[2017-10-05 13:54] LABS: ERYTHROCYTE SEDIMENTATION RATE 108 mm/hr (0-20)
== END ==
LOC: M SFHCPLAZ 11:20
DX: A41.01 Sepsis due to Methicillin susceptible Staphylococcus aureus (principal)
CPT/HCPCS: 85652

== ENCOUNTER → 2017-10-23 | Outpatient (REF) | payer OTHER ==
[2017-10-23 16:12] LABS: HEMATOCRIT 28.4 % (42.0-52.0); HEMOGLOBIN 9.6 g/dl (13.5-17.5); MEAN CORPUSCULAR HEMOGLOBIN 31.3 pg (27.0-33.0); MEAN CORPUSCULAR HGB CONC 33.8 g/dl (32.0-36.5); MEAN CORPUSCULAR VOLUME 92.5 fl (80.0-96.0); PLATELET COUNT, AUTOMATED 132 10^3/uL (150-450); RED BLOOD COUNT 3.07 10^6/uL (4.30-6.10); RED CELL DISTRIBUTION WIDTH 12.7 % (11.5-14.5); WHITE BLOOD COUNT 4.8 10^3/uL (4.0-10.0)
[2017-10-23 16:20] LABS: ALPHA FETOPROTEIN TUMOR QUANT 2.4 NG/ML (<8.1)
[2017-10-23 16:46] LABS: INR 1.14; PROTHROMBIN TIME 14.8 SECONDS (12.4-14.5)
[2017-10-23 16:52] LABS: ALBUMIN 3.8 GM/DL (3.2-5.2); ALBUMIN/GLOBULIN RATIO 0.79 (1.00-1.93); ALKALINE PHOSPHATASE 62 U/L (45-117); ALT/SGPT 17 U/L (12-78); AST/SGOT 23 U/L (7-37); BILIRUBIN,DIRECT 0.1 MG/DL (0.0-0.2); BILIRUBIN,TOTAL 0.5 MG/DL (0.2-1.0); FERRITIN 176 NG/ML (26-388); IRON (FE) 60 UG/DL (65-175); PERCENT SATURATION 16.7 % (19.7-50.0); TOTAL IRON BINDING CAPACITY 359 UG/DL (250-450); TOTAL PROTEIN 8.6 GM/DL (6.4-8.2)
[2017-10-27 00:08] LABS: ALPHA 1 ANTITRYPSIN 155 mg/dL (90-200); ANTI-MITOCHONDRIAL ANTIBODY 28.4 Units (0.0-20.0); ANTINUCLEAR ANTIBODIES DIRECT Negative (Negative); CERULOPLASMIN 24.3 mg/dL (16.0-31.0); HEPATITIS A IgG TOTAL Positive (Negative); LIVER-KIDNEY MICROSOMAL ABY 2.3 Units (0.0-20.0); TISSUE TRANSGLUTAMINASE IgA <2 U/mL (0-3); TISSUE TRANSGLUTAMINASE IgG 3 U/mL (0-5)
[2017-10-27 00:08] LABS: ANTI-SMOOTH MUSCLE ANTIBODY 17 Units (0-19)
[2017-10-28 09:45] LABS: ALBUMIN 4.15 GM/DL (3.29-5.55); ALBUMIN % 48.3 % (55.8-66.1); ALPHA-1-GLOBULIN % 4.1 % (2.9-4.9); ALPHA-1-GLOBULINS 0.35 GM/DL (0.17-0.41); ALPHA-2-GLOBULINS 0.79 GM/DL (0.42-0.99); ALPHA-2-GLOBULINS % 9.2 % (7.1-11.8); BETA-1-GLOBULINS 0.52 GM/DL (0.28-0.60); BETA-1-GLOBULINS % 6.1 % (4.7-7.2); BETA-2-GLOBULINS % 4.6 % (3.2-6.5); GAMMA GLOBULIN % 27.7 % (11.1-18.8); GAMMA GLOBULINS 2.38 GM/DL (0.65-1.58)
== END ==
LOC: M LABDRAW1 11:54
DX: K74.60 Unspecified cirrhosis of liver (principal); I85.00 Esophageal varices without bleeding; F10.20 Alcohol dependence, uncomplicated; K44.9 Diaphragmatic hernia without obstruction or gangrene; K64.1 Second degree hemorrhoids; Z86.010 Personal history of colon polyps; R16.2 Hepatomegaly with splenomegaly, not elsewhere classified

== ENCOUNTER → 2017-10-23 | Outpatient (REF) | payer OTHER | LOC: M LABDRAW1 11:53 | DX: M54.5 Low back pain (principal) ==

== ENCOUNTER → 2017-10-28 | Outpatient (REF) | payer OTHER ==
[2017-10-28 16:11] LABS: CREATININE FOR GFR 1.03 MG/DL (0.70-1.30); GLOMERULAR FILTRATION RATE > 60.0 (>56)
[2017-10-28 16:11] LABS: BLOOD UREA NITROGEN 10 MG/DL (7-18)
== END ==
LOC: M LABDRAW1 14:00
DX: M54.5 Low back pain (principal)
CPT/HCPCS: 82565

== ENCOUNTER → 2017-11-05 | Outpatient (REF) | payer OTHER | LOC: M LAB REF 11:55 | DX: M54.5 Low back pain (principal) ==

== ENCOUNTER → 2018-01-04 | Outpatient (CLI) | payer OTHER ==
[~2018-01-04] MED LIST changes: -ALLO100T PO; -ASPI325T PO; -DIGO0.126 PO; +LIDOCAINE 1% MDV 20ML VIAL As Ordered; -LISI5TAB PO; -LOPR1TAB6 PO; -LOPR50TA PO; -METO25TA4 PO; -PERC5TAB12 PO; -XARE20TA PO
== END ==
LOC: M RADPRO 09:19
DX: R94.5 Abnormal results of liver function studies (principal); K74.60 Unspecified cirrhosis of liver; F10.20 Alcohol dependence, uncomplicated; R16.2 Hepatomegaly with splenomegaly, not elsewhere classified; Z86.79 Personal history of other diseases of the circulatory system; Z79.899 Other long term (current) drug therapy
CPT/HCPCS: 47000

== ENCOUNTER → 2018-01-13 | Outpatient (CLI) | payer OTHER ==
[~2018-01-13] MED LIST changes: +GASTROGRAFIN SOLUTION 30ML (Q9963) As Ordered; +ISOVUE-370 76% 100ML VIAL (Q9967) As Ordered; -LIDOCAINE 1% MDV 20ML VIAL As Ordered
== END ==
LOC: M RAD 11:08
DX: R16.2 Hepatomegaly with splenomegaly, not elsewhere classified (principal); R94.5 Abnormal results of liver function studies; K74.60 Unspecified cirrhosis of liver; M51.34 Other intervertebral disc degeneration, thoracic region; K42.9 Umbilical hernia without obstruction or gangrene; D35.00 Benign neoplasm of unspecified adrenal gland
CPT/HCPCS: Q9963

== ENCOUNTER → 2018-05-25 | Outpatient (REF) | payer OTHER ==
[2018-05-25 15:58] LABS: BASO % 0.7 % (0.0-1.0); EOS # 0.2 10^3/uL (0.0-0.50); EOS % 2.5 % (0.0-3.0); HEMATOCRIT 39.5 % (42.0-52.0); HEMOGLOBIN 13.3 g/dl (13.5-17.5); IMMATURE GRANULOCYTE % 0.5 % (0-3.0); LYMPH % 17.3 % (24.0-44.0); MEAN CORPUSCULAR HGB CONC 33.7 g/dl (32.0-36.5); MONO # 0.5 10^3/uL (0.0-0.8); NEUTROPHILS # 4.2 10^3/uL (1.8-7.7); PLATELET COUNT, AUTOMATED 147 10^3/uL (150-450); RED BLOOD COUNT 4.03 10^6/uL (4.30-6.10); RED CELL DISTRIBUTION WIDTH 11.9 % (11.5-14.5)
[2018-05-25 16:02] LABS: C REACTIVE PROTEIN QUANTITATIV 0.86 MG/DL (0.00-0.30)
[2018-05-25 16:41] LABS: ERYTHROCYTE SEDIMENTATION RATE 56 mm/hr (0-20)
== END ==
LOC: M LABDRAW1 15:38
DX: M19.172 Post-traumatic osteoarthritis, left ankle and foot (principal)
CPT/HCPCS: 86140

== ENCOUNTER 2021-04-01 18:58 | Inpatient (IN) | payer OTHER ==
[~2021-04-01] VITALS: Ht 175.3 cm; Wt 152.0 kg
[~2021-04-01 18:58] MED LIST changes: +ALLO100T PO; +AMLO2.5T3 PO; +ASPI-1 PO; +CYAN100049 PO; +CYMB1CAP5 PO; +DIGO0.126 PO; +FERR325T3 PO; +GABA-283 PO; -GASTROGRAFIN SOLUTION 30ML (Q9963) As Ordered; +INSULIN; -ISOVUE-370 76% 100ML VIAL (Q9967) As Ordered; +LISI-898 PO; +LISI5TAB PO; +LOPR1TAB6 PO; +LOPR50TA PO; +METO25TA4 PO; +METO50TA7 PO; +MULT1TAB8 PO; +OMEP40CA4 PO; +PATIENT COMMENT; +PERC5TAB12 PO; +PERCOCET PO; +SENN18TA PO; +VITA100066 PO; +VITA500T88 PO; +XARE20TA PO; +ZYLO300T6 PO
--- NOTE | 2021-04-01 20:24 | REPVR ---
PROCEDURE INFORMATION: Exam: CT Head Without Contrast Exam date and time: 04/01/2021 7:44 PM Age: 56 years old Clinical indication: Altered mental status/memory loss TECHNIQUE: Imaging protocol: Computed tomography of the head without contrast. Radiation optimization: All CT scans at this facility use at least one of these dose optimization techniques: automated exposure control; mA and/or kV adjustment per patient size (includes targeted exams where dose is matched to clinical indication); or iterative reconstruction. COMPARISON: CT Head without contrast 07/14/2017 4:16 PM FINDINGS: Brain: Mild parenchymal atrophy. No significant white matter disease. Cerebral ventricles: No ventriculomegaly. Paranasal sinuses: Visualized sinuses are unremarkable. No fluid levels. Mastoid air cells: Visualized mastoid air cells are well aerated. Bones/joints: Unremarkable. No acute fracture. Soft tissues: Unremarkable. IMPRESSION: Mild parenchymal atrophy. No significant white matter disease. Electronically signed by: Max Gao On 04/01/2021 20:24:26 PM
[2021-04-01 20:59] LABS: VENOUS HCO3 27.9 MEQ/L (23.0-27.0); VENOUS O2 SATURATION 83.2 % (60.0-80.0); VENOUS PARTIAL PRESSURE CO2 44.5 mmHg (38.0-50.0); VENOUS PARTIAL PRESSURE O2 55.5 mmHg (30.0-50.0); VENOUS PH 7.415 UNITS (7.330-7.430); VENOUS STANDARD HCO3 27.1 MEQ/L; VENOUS TOTAL CO2 29.3 MEQ/L (24.0-28.0)
[2021-04-01 21:10] LABS: BASO % 0.4 % (0.0-1.0); EOS # 0.1 10^3/uL (0.0-0.5); EOS % 2.6 % (0.0-3.0); LYMPH # 0.8 10^3/uL (1.5-5.0); LYMPH % 15.1 % (24.0-44.0); MEAN CORPUSCULAR HEMOGLOBIN 36.4 pg (27.0-33.0); MEAN CORPUSCULAR HGB CONC 32.2 g/dl (32.0-36.5); MONO # 0.6 10^3/uL (0.0-0.8); MONO % 11.1 % (2.0-8.0); NEUTROPHILS # 3.8 10^3/uL (1.5-8.5); NEUTROPHILS % 69.9 % (36.0-66.0); RED BLOOD COUNT 1.54 10^6/uL (4.30-6.10); WHITE BLOOD COUNT 5.5 10^3/uL (4.0-10.0)
[2021-04-01 21:12] LABS: HEMATOCRIT 17.4 % (42.0-52.0); PLATELET COUNT, AUTOMATED 90 10^3/uL (150-450)
[2021-04-01 21:24] LABS: HEMOGLOBIN 5.6 g/dl (13.5-17.5)
--- NOTE | 2021-04-01 21:30 | REPVR ---
PROCEDURE INFORMATION: Exam: XR Chest Exam date and time: 04/01/2021 9:00 PM Age: 56 years old Clinical indication: Other: AMS; Additional info: Altered mental status TECHNIQUE: Imaging protocol: XR of the chest. Views: 1 view. COMPARISON: [place] PORTABLE CHEST X-RAY 07/23/2017 7:29 AM FINDINGS: Lungs: Unremarkable. No consolidation. Pleural spaces: Unremarkable. No pleural effusion. No pneumothorax. Heart/Mediastinum: Unremarkable. No cardiomegaly. Bones/joints: Unremarkable. IMPRESSION: No acute findings. Electronically signed by: Max Gao On 04/01/2021 21:29:50 PM
[2021-04-01 21:43] LABS: ACETAMINOPHEN LEVEL < 2.0 UG/ML (10.0-30.0); ALBUMIN 2.4 GM/DL (3.2-5.2); ALT/SGPT 22 U/L (12-78); BILIRUBIN,DIRECT 1.7 MG/DL (0.0-0.2); BILIRUBIN,TOTAL 3.6 MG/DL (0.2-1.0); BLOOD UREA NITROGEN 36 MG/DL (7-18); CARBON DIOXIDE LEVEL 30 MEQ/L (21-32); CHLORIDE LEVEL 100 MEQ/L (98-107); CK-MB VALUE MASS 1.4 NG/ML (<3.6); CPK CREATINE PHOSPHOKINASE 51 U/L (39-308); CREATININE FOR GFR 1.65 MG/DL (0.70-1.30); ETHYL ALCOHOL (ETHANOL) 0.003 % (0.000-0.010); GLOMERULAR FILTRATION RATE 45.8 (>56); GLUCOSE, FASTING 149 MG/DL (70-100); MB/CK RELATIVE INDEX 2.75 (< OR =4); POTASSIUM SERUM 3.9 MEQ/L (3.5-5.1); SALICYLATE LEVEL < 1.7 MG/DL (5.0-30.0); SODIUM LEVEL 136 MEQ/L (136-145); TOTAL PROTEIN 7.5 GM/DL (6.4-8.2); TROPONIN I 0.02 NG/ML (< 0.10)
[2021-04-01 21:47] LABS: RSV AMPLIFICATION NEGATIVE (NEGATIVE)
[2021-04-01 22:36] LABS: INR 1.78; PROTHROMBIN TIME 21.1 SECONDS (12.7-14.5)
[2021-04-01] MEDS ORDERED: LACTULOSE 20 GM/30 ML SYRUP UD PO ONE (22:40)
--- NOTE | 2021-04-01 23:56 | HPEPDOC ---
[facility] Medical History & Physical Date of Admission Apr 01, 2021 Date of Service: Apr 01, 2021 History and Physical CHIEF COMPLAINT: Confusion HISTORY OF PRESENT ILLNESS: 56-year-old male history of hypertension, LEELA on CPAP, atrial fibrillation, alcoholic liver cirrhosis who is brought in by his nephew who is at bedside as patient was appearing more confused at home. Unfortunately no history is able to be obtained from the patient he only replies by pleasantly responding "yes" to all questions asked. His nephew is able to provide a limited history he stays that Mr. Gaspar has alcoholic liver cirrhosis and a similar episode has happened in the past with increased confusion. In the emergency department ammonia level was found to be 146 and lactulose as ordered. It looks like he has some lactic acidosis at 2.9 and acute kidney injury he was also found to have a hemoglobin of 5.6 and PRBCs were ordered. Stool guaiac was positive. Patient will be admitted to the hospital for further medical workup and management PAST MEDICAL/SURGICAL HISTORY: From chart review as patient is unable to elicit a history and his nephew does not know LEELA on CPAP nephew unsure if he still uses Atrial fibrillation Gout Hypertension Alcoholic liver cirrhosis History of encephalopathy in the past History of staph bacteremia Left ankle ORIF Cardiac cryoablation SOCIAL HISTORY: Per his nephew he drinks alcohol still but unsure how much Per his nephew he does not smoke or use illicit drugs To his nephew used to be a schoolteacher for 14 years and a field sales representative for [employer] for 10 years FAMILY HISTORY: Unable to obtain due to patient's mentation ALLERGIES: Please see below. REVIEW OF SYSTEMS: Unable to obtain due to patient's confusion HOME MEDICATIONS: Please see below. PHYSICAL EXAMINATION: Constitutional: Awake and alert, in no apparent distress pleasantly confused responding yes to everything ENT: Sclera is icteric. Mucosa is moist. Respiratory: Lungs CTA bilaterally. No respiratory distress. No use of accessory muscles. Cardiovascular: Regular rate and rhythm on auscultation. click-like murmur on exam. Gastrointestinal: Abdomen is soft, non distended, non tender, BS present. Musculoskeletal: Symmetrically swollen lateral lower extremities with chronic venous stasis changes and nonpitting edema likely with component of lymphedema Neurologic: No focal neurological deficit. Mental Status: A&O x3, normal affect LABORATORY DATA: See below. IMAGING: See chart MICROBIOLOGY: Please see below. ASSESSMENT/PLAN 56-year-old male history of hypertension, LEELA on CPAP, atrial fibrillation, alcoholic liver cirrhosis brought in for increasing confusion found to have hemoglobin of 5.6 likely from GI loss as well as elevated ammonia likely from liver cirrhosis admitted for further medical workup and management # Acute hepatic encephalopathy: Alcoholic liver cirrhosis. Ammonia 146 on presentation. Start lactulose and rifaximin. Repeat ammonia in morning. INR 1.78 likely from liver disease. # Blood loss anemia: Stool guaiac positive. Hemoglobin 5.6 in ED. pRBC transfusions started from ED. Consult GI in the morning to decide on EGD/colonoscopy plans. NPO except meds in case GI wants to take him for scopes tomorrow. #MICHEL: Cr. 1.65 on admit. Fu FeUrea. Trial IVFs NS. Trend BMP. Avoid nephrotoxins. # hx ?paroxysmal Atrial fibrillation: Doesn't look like he is anticoagulated at home nor is he on rate control. Should follow up with PCP or be referred to sales center manager. # CHF: continue home meds bumex and aldactone. no other cardiac meds. Fu echo; LE edema and murmur on exam. # hx Hypertension: No home antihypertensive meds on med rec. Monitor BP and start antihypertensives as needed. BP normotensive now. # LEELA: May use home CPAP machine # Obesity: BMI 53. Complicates care. Fu A1C/lipid panel. a1 # Elevated TSH: fu Free T4 ordered # DVT prophylaxis: TEDs/SCDs only due to GI bleed A [facility] Hospitalist Vital Signs Vital Signs Date Time Temp Pulse Resp B/P (MAP) Pulse Ox O2 Delivery O2 Flow Rate FiO2 04/01/21 18:59 97.6 92 18 118/57 (77) 99 Room Air Laboratory Data Labs 24H Laboratory Tests 2 04/01/21 20:25: Bedside Glucose (Misc Panel) 135H 04/01/21 20:49: Immature Granulocyte % (Auto) 0.9, Neutrophils (%) (Auto) 69.9H, Lymphocytes (%) (Auto) 15.1L, Monocytes (%) (Auto) 11.1H, Eosinophils (%) (Auto) 2.6, Basophils (%) (Auto) 0.4, Neutrophils # (Auto) 3.8, Lymphocytes # (Auto) 0.8L, Monocytes # (Auto) 0.6, Eosinophils # (Auto) 0.1, Basophils # (Auto) 0.0, Nucleated Red Blood Cells % (auto) 0.0, Immature Platelet Fraction 1.7, Blood Gas Bicarbonate Standard 27.1, Venous Blood pH 7.415, Venous Blood Partial Pressure CO2 44.5, Venous Blood Partial Pressure O2 55.5H, Venous Blood Total Carbon Dioxide 29.3H, Venous Blood HCO3 27.9H, Venous Blood Oxygen Saturation 83.2H, Venous Blood Base Excess 3.0H, Anion Gap 6L, Glomerular Filtration Rate 45.8L, Lactic Acid Level 2.9*H, Calcium Level 9.0, Total Bilirubin 3.6H, Direct Bilirubin 1.7H, Aspartate Amino Transf (AST/SGOT) 42H, Alanine Aminotransferase (ALT/SGPT) 22, Alkaline Phosphatase 34L, Ammonia 146H, Total Creatine Kinase 51, Creatine Kinase MB 1.4, Creatine Kinase MB Relative Index 2.75, Troponin I 0.02, Total Protein 7.5, Albumin 2.4L, Albumin/Globulin Ratio 0.5, Thyroid Stimulating Hormone (TSH) 4.530H, Salicylates Level < 1.7L, Acetaminophen Level < 2.0L, Ethyl Alcohol Level 0.003 04/01/21 20:50: Coronavirus (COVID-19)(PCR) NEGATIVE, Influenza Type A (RT-PCR) NEGATIVE, Influenza Type B (RT-PCR) NEGATIVE, Respiratory Syncytial Virus (PCR) NEGATIVE 04/01/21 22:14: Prothrombin Time 21.1H, Prothromb Time International Ratio 1.78, Activated Partial Thromboplast Time 42.0H CBC/BMP Laboratory Tests 04/01/21 20:49 Microbiology Microbiology 04/01/21 Blood Culture, Received Pending 04/01/21 Blood Culture, Received Pending Home Medications Scheduled Bumetanide (Bumetanide) 1 Mg Tablet, 1 MG PO BID Famotidine (Famotidine) 40 Mg Tablet, 40 MG PO QHS Potassium Chloride (Potassium Chloride) 10 Meq Tab.er.prt, 10 MEQ PO DAILY Spironolactone (Spironolactone) 25 Mg Tablet, 25 MG PO BID Allergies Coded Allergies: No Known Allergies (Unverified , 02/05/13) WILLIAM NI MD Apr 01, 2021 23:56
[2021-04-02] VITALS (24 sets, daily range): BP systolic 127–183; BP diastolic 58–81
[2021-04-02] MEDS ORDERED: POTA10TA16 PO (00:02)
[2021-04-02] MEDS ORDERED: SPIR-10 PO (00:02)
[2021-04-02] MEDS ORDERED: FAMO40TA3 PO (00:02)
[2021-04-02] MEDS ORDERED: BUME1TAB3 PO (00:02)
[2021-04-02] MEDS ORDERED: HOME MED LIST COMPLETE! XX SCH (00:05)
[2021-04-02] MEDS ORDERED: NS 1,000 ML IV SCH (00:10)
[2021-04-02 01:29] LABS: AMPHETAMINES LEVEL URINE NEGATIVE (NEGATIVE); BARBITURATES URINE NEGATIVE (NEGATIVE); BENZODIAZEPINES URINE NEGATIVE (NEGATIVE); CANNABINOIDS URINE NEGATIVE (NEGATIVE); COCAINE METABOLITE URINE NEGATIVE (NEGATIVE); METHADONE URINE NEGATIVE (NEGATIVE); OPIATES URINE NEGATIVE (NEGATIVE); PHENCYCLIDINE URINE NEGATIVE (NEGATIVE)
--- NOTE | 2021-04-02 05:10 | ECGEPIP ---
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
[2021-04-02] MEDS ORDERED: FLUBLOK(EGG FREE)(QUAD)INFLUENZA VACC 0.5ML SYRINGE 18YRS & OLDER IM ONE (09:00)
[2021-04-02] MEDS: rifAXIMin 550 MG TAB (XIFAXAN) PO SCH ×2 (09:00→21:23)
[2021-04-02] MEDS: BUMETANIDE 1 MG TAB PO SCH ×2 (09:00→21:22)
[2021-04-02] MEDS: LACTULOSE 20 GM/30 ML SYRUP UD PO SCH ×4 (09:00→23:43)
[2021-04-02] MEDS: SPIRONOLACTONE 25 MG TAB PO SCH ×2 (09:00→21:22)
[2021-04-02] MEDS ORDERED: LIDOCAINE 1% MDV 20ML VIAL As Ordered ONE (09:47)
[2021-04-02] MEDS: OCTREOTIDE ACETATE 1,200 MCG in NS 238.8 ML IV SCH (10:22)
[2021-04-02] MEDS ORDERED: SODIUM CHLORIDE 0.9% INJ 10 ML SYR IV PRN (11:50)
[2021-04-02 12:57] LABS: MEAN CORPUSCULAR HEMOGLOBIN 33.3 pg (27.0-33.0); MEAN CORPUSCULAR HGB CONC 32.5 g/dl (32.0-36.5); MEAN CORPUSCULAR VOLUME 102.5 fl (80.0-96.0); RED BLOOD COUNT 2.04 10^6/uL (4.30-6.10); WHITE BLOOD COUNT 5.7 10^3/uL (4.0-10.0)
[2021-04-02 13:04] LABS: HEMATOCRIT 20.9 % (42.0-52.0); HEMOGLOBIN 6.8 g/dl (13.5-17.5); PLATELET COUNT, AUTOMATED 82 10^3/uL (150-450)
[2021-04-02 13:13] LABS: INR 1.71; PROTHROMBIN TIME 20.5 SECONDS (12.7-14.5)
[2021-04-02 13:25] LABS: ALBUMIN 2.3 GM/DL (3.2-5.2); CALCIUM LEVEL 9.4 MG/DL (8.5-10.1); CHOLESTEROL RISK RATIO 2.354 (<5); CREATININE FOR GFR 1.44 MG/DL (0.70-1.30); FREE T4 1.65 NG/DL (0.76-1.46); GLOMERULAR FILTRATION RATE 53.6 (>56); POTASSIUM SERUM 4.1 MEQ/L (3.5-5.1); TOTAL PROTEIN 7.2 GM/DL (6.4-8.2)
--- NOTE | 2021-04-02 16:03 | REP ---
INDICATION: poor access. needing blood, octreotide.. COMPARISON: None. TECHNIQUE: The procedure was performed under the direct supervision of Dr. Teran. The risks and benefits of the procedure were explained and informed consent was obtained by the healthcare proxy. The right basilic vein was localized using ultrasound guidance. The skin was prepped and draped in a sterile fashion. 1 mL of 1% lidocaine was used as a local anesthetic. Using ultrasound guidance the basilic vein was cannulated and a 0.018 guidewire was inserted and advanced to the SVC using fluoroscopic guidance, and last image hold technology. The needle was removed and a 5.5 Mosotho dilator and peel-away sheath was inserted over the guide wire. A 5.5 Mosotho dual lumen catheter was cut to length of 45 cm. The dilator was removed and the catheter was inserted over the guide wire with the tip ending in the SVC. The peel-away sheath was removed and the catheter was flushed with heparinized saline as per Hospital protocol. The catheter was affixed to the skin and a sterile dressing was applied. Estimated blood loss: Less than 1 mL The patient tolerated the procedure well and there were no immediate complications. 0.2 minutes of fluoro time was utilized for this procedure. FINDINGS: None IMPRESSION: PICC line insertion, right basilic vein with the tip ending in the SVC. <Electronically signed by Ermias Lombardi > 04/02/21 [id number] <Electronically signed by Yosi Teran > 04/02/21 [id number]
[2021-04-02] MEDS: PIPERACILLIN/TAZOBACTAM SOD 3.375 GM in D5W MINI-BAG PLUS 50 ML IV SCH ×2 (17:49→23:44)
[2021-04-02] MEDS: SODIUM CHLORIDE 0.9% INJ 10 ML SYR IV SCH (18:00)
--- NOTE | 2021-04-02 18:05 | CR.PDOC ---
General Date of Consultation: Apr 02, 2021 Consultation REASON FOR CONSULTATION/CHIEF COMPLAINT: [anemia]. HISTORY OF PRESENT ILLNESS: . 56 yo male presents to er with his nephew. Pt is here for increased confusion. He is unable to provide any meaningful history. Much of the details were pulled from his chart and from his sister. He has a known history of cirrhosis, ascites, esophageal varices, as sequelae of chronic alcohol abuse. he has a positive AMA, he had liver biopsy in 2018. I understand he is being followed by gastroenterology in [place]. On presentation he was found to have dark stool on rectal exam, and on lab work has a Hb of 5.4.. He was admitted with anemia confusion and is being transfused. ALLERGIES: Please see below. HOME MEDICATIONS: Please see below. PAST MEDICAL HISTORY: Cirrhosis, Esophageal varices, Pneumonia, Staph aureus Bacteremia, Alcohol abuse, Morbid Obesity, Positive AMA, Gout, Hypertension,A Fib, PAST SURGICAL HISTORY: Liver Biopsy 2017, Cardiac ablation 2013, EGD 2017, FAMILY HISTORY: Dementia,Aortic aneurysm SOCIAL HISTORY: Tobacco use:[Negative] ETOH: [positive] Illicit drug use: [Negative] REVIEW OF SYSTEMS: (Unobtainable) PHYSICAL EXAMINATION: VITAL SIGNS: Please see below. GENERAL APPEARANCE: [Morbidly obese, unkempt, awake, but unable to answer questions (answers yes,no randomly to questions], tremulous, asterixis. HEENT: [Jaundice]. RESPIRATORY: [clear]. CARDIOVASCULAR: [RRR,Murmur]. ABDOMEN: [Obese, soft, no mass, ascites present. EXTREMITIES: 3+ edema, erythema,venous stasis skin changes]. NEUROLOGICAL: Awake, Not oriented, unable to answer questions in a meaningful way. RECTAL: no mass, stool dark brown/black LABORATORY DATA: Please see below. ASSESSMENT/PLAN: 1. Anemia-acute post hemorrhagic. 2. Melena 3. Cirrhosis-Alcohol, obese/AMA positive 4. Encephalopathy. 5. Ascites/edema/anasarca 6. Jaundice 7. Coagulopathy 8. Thrombocytopenia The overall presentation is consistent with acute GI bleed, possibly related to variceal bleeding. He has ascites and episode may have been brought on by SBP. Rec 1) Transfuse aggressively, 2) Urgent EGD to assess GI bleeding--eval/treat Variceal bleeding. 3) IV Octreotide empirically until endoscopy eval. 4) Empiric antibiotics for possible SBP. (tap ascites once stable) 5) Ultrasound liver/bile duct for jaundice, ascites,other-r/o obstructive 6) Consider CT brain. Vital Signs/I&O Vital Signs Date Time Temp Pulse Resp B/P (MAP) Pulse Ox O2 Delivery O2 Flow Rate FiO2 04/02/21 16:53 97.8 91 17 147/68 (94) 99 Room Air I&O- Last 24 Hours up to 6 AM 04/02/21 06:00 Intake Total 800 ml Balance 800 ml Laboratory Data Labs 24H Laboratory Tests 2 04/01/21 20:25: Bedside Glucose (Misc Panel) 135H 04/01/21 20:49: Immature Granulocyte % (Auto) 0.9, Neutrophils (%) (Auto) 69.9H, Lymphocytes (%) (Auto) 15.1L, Monocytes (%) (Auto) 11.1H, Eosinophils (%) (Auto) 2.6, Basophils (%) (Auto) 0.4, Neutrophils # (Auto) 3.8, Lymphocytes # (Auto) 0.8L, Monocytes # (Auto) 0.6, Eosinophils # (Auto) 0.1, Basophils # (Auto) 0.0, Nucleated Red B lood Cells % (auto) 0.0, Immature Platelet Fraction 1.7, Blood Gas Bicarbonate Standard 27.1, Venous Blood pH 7.415, Venous Blood Partial Pressure CO2 44.5, Venous Blood Partial Pressure O2 55.5H, Venous Blood Total Carbon Dioxide 29.3H, Venous Blood HCO3 27.9H, Venous Blood Oxygen Saturation 83.2H, Venous Blood Base Excess 3.0H, Anion Gap 6L, Glomerular Filtration Rate 45.8L, Lactic Acid Level 2.9*H, Calcium Level 9.0, Total Bilirubin 3.6H, Direct Bilirubin 1.7H, Aspartate Amino Transf (AST/SGOT) 42H, Alanine Aminotransferase (ALT/SGPT) 22, Alkaline Phosphatase 34L, Ammonia 146H, Total Creatine Kinase 51, Creatine Kinase MB 1.4, Creatine Kinase MB Relative Index 2.75, Troponin I 0.02, Total Protein 7.5, Albumin 2.4L, Albumin/Globulin Ratio 0.5, Thyroid Stimulating Hormone (TSH) 4.530H, Salicylates Level < 1.7L, Acetaminophen Level < 2.0L, Ethyl Alcohol Level 0.003 04/01/21 20:50: Coronavirus (COVID-19)(PCR) NEGATIVE, Influenza Type A (RT-PCR) NEGATIVE, Influenza Type B (RT-PCR) NEGATIVE, Respiratory Syncytial Virus (PCR) NEGATIVE 04/01/21 22:14: Prothrombin Time 21.1H, Prothromb Time International Ratio 1.78, Activated Partial Thromboplast Time 42.0H 04/02/21 00:43: Urine Opiates Screen NEGATIVE, Urine Methadone Screen NEGATIVE, Urine Barbiturates Screen NEGATIVE, Urine Phencyclidine Screen NEGATIVE, Urine Amphetamines Screen NEGATIVE, Urine Benzodiazepines Screen NEGATIVE, Urine Cocaine Metabolite Screen NEGATIVE, Urine Cannabinoids Screen NEGATIVE 04/02/21 00:44: Urine Color YELLOW, Urine Appearance CLEAR, Urine pH 7.0, Urine Specific [place] 1.010, Urine Protein NEGATIVE, Urine Glucose (UA) NEGATIVE, Urine Ketones NEGATIVE, Urine Blood 2+H, Urine Nitrite NEGATIVE, Urine Bilirubin NEGATIVE, Urine Urobilinogen 4.0H, Urine Leukocyte Esterase 1+H, Urine WBC (Auto) 9H, Urine RBC (Auto) 7H, Urine Hyaline Casts (Auto) 0, Urine Bacteria (Auto) 1+H, Urine Squamous Epithelial Cells 0, Urine Sperm (Auto) 04/02/21 01:52: Lactic Acid Followup at 4 Hours 2.1*H 04/02/21 12:12: 04/02/21 12:21: Nucleated Red Blood Cells % (auto) 0.0, Prothrombin Time 20.5H, Prothromb Time International Ratio 1.71, Anion Gap 7L, Glomerular Filtration Rate 53.6L, Calc ium Level 9.4, Magnesium Level 2.0, Total Bilirubin 5.0H, Aspartate Amino Transf (AST/SGOT) 46H, Alanine Aminotransferase (ALT/SGPT) 24, Alkaline Phosphatase 35L, Ammonia 97H, Total Protein 7.2, Albumin 2.3L, Albumin/Globulin Ratio 0.5, Triglycerides Level 85, Total Cholesterol 113, LDL Cholesterol 48, Non-HDL Cholesterol (LDL + VLDL) 65, Total HDL Cholesterol 48, Cholesterol/HDL Ratio 2.354, Free Thyroxine 1.65H CBC/BMP Laboratory Tests 04/01/21 20:49 04/02/21 12:21 Microbiology Microbiology 04/02/21 Urine Culture, Received Pending 04/01/21 Blood Culture, Received Pending 04/01/21 Blood Culture, Received Pending Allergies Coded Allergies: No Known Allergies (Unverified , 02/05/13) Home Medications Scheduled Bumetanide (Bumetanide) 1 Mg Tablet, 1 MG PO BID, (Reported) Famotidine (Famotidine) 40 Mg Tablet, 40 MG PO QHS, (Reported) Potassium Chloride (Potassium Chloride) 10 Meq Tab.er.prt, 10 MEQ PO DAILY, (Reported) Spironolactone (Spironolactone) 25 Mg Tablet, 25 MG PO BID, (Reported) SOPHIA MCLAIN MD Apr 02, 2021 18:05
[2021-04-02 18:25] LABS: HEMATOCRIT 21.8 % (42.0-52.0); HEMOGLOBIN 7.2 g/dl (13.5-17.5); MEAN CORPUSCULAR HEMOGLOBIN 33.2 pg (27.0-33.0); MEAN CORPUSCULAR VOLUME 100.5 fl (80.0-96.0); RED BLOOD COUNT 2.17 10^6/uL (4.30-6.10); WHITE BLOOD COUNT 5.5 10^3/uL (4.0-10.0)
[2021-04-02 18:29] LABS: PLATELET COUNT, AUTOMATED 81 10^3/uL (150-450)
[2021-04-02] MEDS ORDERED: ROCURONIUM BROMIDE 50 MG/5 ML VIAL As Ordered ONE (19:18)
[2021-04-02] MEDS ORDERED: fentaNYL 100 MCG/2 ML INJECTION (J3010) As Ordered ONE (19:18)
[2021-04-02] MEDS ORDERED: propofoL 200 MG/20 ML VIAL As Ordered ONE (19:18)
[2021-04-02] MEDS ORDERED: LIDOCAINE 2% 100MG/5ML SDV (FOR ANES.) As Ordered ONE (19:18)
[2021-04-02] MEDS ORDERED: SUCCINYLCHOLINE 100 MG/5 ML SYRINGE (J0330) As Ordered ONE (19:18)
[2021-04-02] MEDS ORDERED: ONDANSETRON 4MG/2ML VIAL As Ordered ONE (19:19)
--- NOTE | 2021-04-02 19:20 | IPNPDOC ---
Date Seen The patient was seen on 04/02/21. Progress Note SUBJECTIVE: Neo is a 56-year-old male who was admitted during the overnight. With encephalopathy secondary to alcoholic liver cirrhosis and significant anemia (hemoglobin 5.6) with FOBT positive. The overnight team started blood transfusions. Upon hospitalist service arrival to the bedside, nursing reports that the patient recently had multiple loose dark melena-like stools that were inc ontinent. Patient was started on lactulose and rifaximin. Due to patient's encephalopathy, no review of systems could be obtained and all information was gathered by nursing staff, overnight provider, and reports from patient's nephew. OBJECTIVE PHYSICAL EXAMINATION: VITAL SIGNS: Please see below. GENERAL: Patient is encephalopathic and responds to all questions and commands with only his first name or a yes or no. Lying upright in bed. HEENT: Normocephalic, atraumatic. Noninjected, anicteric sclera. Mild conjunctival pallor. Skin: There is some mild jaundice of face. CARDIOVASCULAR: Regular rate, regular rhythm. Somewhat distant heart sounds. Normal S1, S2. There is an appreciated 2/6 midsystolic murmur. RESPIRATORY: Due to patient's altered mental state, he did not take signifi cantly deep breaths to appreciate for auscultation. He did have symmetric chest expansion and breathing on room air. From the limited tidal volume that we could auscultate, no adventitious breath sounds were appreciated. ABDOMINAL: Soft, obese. Nondistended. Difficult to appreciate for tenderness due to patient's altered state. Significant abdominal striae. Umbilical hernia present. There is ascites with left-sided fluid dependency in the abdomen with associated mild induration of skin. There is no caput medusa. Hypoactive bowel sounds throughout. EXTREMITIES: There is significant bilateral lower extremity edema that appears chronic with associated chronic venous stasis changes and induration of skin. There is bilateral onychomycosis. Only able to appreciate for popliteal pulses bilaterally due to extensive edema and induration of skin. NEUROLOGICAL: Patient is encephalopathic and therefore we are unable to assess for asterixis. There was a resting tremor of the left hand. Patient could not follow any commands or answer questions appropriately other than stating his first name when asked to name. For all other questions, he responded either with his first name or a yes or no that was most times inappropriate per the question. LABORATORY DATA, IMAGING STUDIES, MICROBIOLOGY: Please see below. ASSESSMENT AND PLAN: This is a 56-year-old man with notable history of alcoholic liver cirrhosis with varices, HAV positive, obesity, MRSA bacteremia, A. fib, hypertension, LEELA with unknown CPAP status who was admitted in the early hours of 04/02 after being brought in by his nephew due to increased confusion at home. Patient was admitted for acute decompensation of alcoholic liver cirrhosis with encephalopathy and blood loss anemia. #Altered mental status from hepatic encephalopathy secondary to acutely decompensated alcoholic liver failure -Patient was brought in by his nephew due to increased confusion at home that was reminiscent of a prior episode when patient was encephalopathic from alcoholic liver cirrhosis -Due to patient's encephalopathy no history or review from the patient was obtainable and very limited history came from the patient's nephew. -At presentation: Initial ammonia 146; total bilirubin 3.6; INR 1.78; platelets 81; albumin 2.4; hemoglobin of 5.6 -Calculated meld sodium score of 24 points correlating with a 14-15% estimated 90-day mortality; child Correia score of 13 points correlating with a class C designation and a life expectancy of 1 to 3 years; abdominal surgery perioperative mortality is 82% -Lactulose and rifaximin were started upon admission but were paused for n.p.o. status in preparation for EGD on the afternoon of 04/02 -Antibiotics will be ordered for SBP prophylaxis -IV octreotide drip started this morning -Gastroenterology is ordered abdominal ultrasound to assess for liver/bile duct in the setting of ascites and jaundice to rule out obstruction -Initial blood cultures were ordered in the ED #Acute blood loss anemia secondary to GI bleed from possible varices in the setting of decompensated liver cirrhosis with known history of varices -Initial hemoglobin was 5.6 and admitting team ordered 5 units of PRBCs to be transfused. -After 4 units, hemoglobin jeff to 6.8, another unit was ordered to be trans fused prior to patient being taken for EGD emergently. -Gastroenterology service has been consulted (Dr. Lima); hospitalist team is appreciative of Dr. Lima's continued collaboration and efforts moving forward. -FOBT positive in the ED; patient had multiple loose melanic stools. -Patient has been hemodynamically stable since admission -Monitoring blood counts and will transfuse aggressively -IV octreotide drip was started this morning #Acute kidney injury with no known history of chronic kidney disease and concern for hepatorenal syndrome. -Patient presented with an initial creatinine of 1.65; on review of past records, recent baseline is around 1 -Patient received 4 units of blood with 1/5 to be ordered prior to EGD -Initially, fluids were started but also home diuretics were continued by admitting team. Fluids were stopped while blood was being transfused. -Patient was started on a condom catheter for monitoring and incontinent voiding with urinary retention; due to anatomy, condom catheter no longer was feasible and was switched over to Brown catheter #Elevated lactate likely secondary to liver cirrhosis -Initial lactic acid was 2.9 with follow-up of 2.1 -This is likely secondary to patient's inability to efficiently clear lactic acid due to liver cirrhosis -Antibiotics will be ordered for SBP prophylaxis #Abnormal urinalysis -UA was ordered and showed 1+ leuk esterase with 1+ urine bacteria and there is a pending reflex to urine culture. -Due to critical monitoring, urinary retention, and incontinent voiding, a condom catheter was initially started but due to anatomy issues, a Brown catheter was placed by nursing #Chronic lower extremity edema -Admitting service continued patient's home diuretics but also started fluids. -Patient's last echocardiogram (a GALDINO) on file was in July 2017 which was done when patient had MRSA bacteremia. Relevant findings showed EF of 60% with mild mitral regurgitation, mild aortic regurgitation, mild aortic valve sclerosis, mild mitral annular calcification, there were no vegetations, and there was normal left ventricular wall motion and systolic function. #DVT prophylaxis: Teds and sequentials ordered in the setting of acute blood loss anemia, thrombocytopenia and upcoming EGD CODE STATUS: Full code Disposition: This patient is ill and is going for an EGD later today with significant mortality risk from decompensated alcoholic liver cirrhosis with acute GI bleed and possible hepatorenal syndrome. Due to acute stay, patient has guarded prognosis GME ATTESTATION My faculty preceptor for this patient encounter was physically present during the encounter and was fully available. All aspects of the patient interview, examination, medical decision making process, and medical care plan development were reviewed and approved by the faculty preceptor. The faculty preceptor is aware and concurs with the plan as stated in the body of this note and will attest to such by his/her cosignature. ATTENDING NOTE I personally examined Mr. Gaspar and discussed the physical exam findings, investigative findings and discussed the plan as detailed by the resident physician above. I agree with their noted findings and plan. In addition, it is unclear to me if Mr. Gaspar's encephalopathy is simply hepatic encephalopathy i/s/o hyperammonemia, and if his anemia is all due to GIB. He certainly has maroon colored stool but has received 5u of blood without much improvement in his hgb of Hct which makes me wonder the nature of his anemia. I am concerned about a consumptive hematologic process given his refractory anemia, MICHEL, enephalopathy, thrombocytopenia, coagulopathy, hyperbilirubinemia and will therefore check for hemolytic processes such as DIC vs. TTP in addition to decompensated cirrhosis with GIB and hepatic encephalopathy. GI is onboard, Upper endoscopy was unrevealing for loss of that degree of blood and he is pending a colonoscopy. VS, I&O, 24H, Fishbone Vital Signs/I&O Vital Signs Date Time Temp Pulse Resp B/P (MAP) Pulse Ox O2 Delivery O2 Flow Rate FiO2 04/02/21 16:53 97.8 91 17 147/68 (94) 99 Room Air I&O- Last 24 Hours up to 6 AM 04/02/21 06:00 Intake Total 800 ml Balance 800 ml Laboratory Data 24H LABS Laboratory Tests 2 04/01/21 20:25: Bedside Glucose (Misc Panel) 135H 04/01/21 20:49: Immature Granulocyte % (Auto) 0.9, Neutrophils (%) (Auto) 69.9H, Lymphocytes (%) (Auto) 15.1L, Monocytes (%) (Auto) 11.1H, Eosinophils (%) (Auto) 2.6, Basophils (%) (Auto) 0.4, Neutrophils # (Auto) 3.8, Lymphocytes # (Auto) 0.8L, Monocytes # (Auto) 0.6, Eosinophils # (Auto) 0.1, Basophils # (Auto) 0.0, Nucleated Red Blood Cells % (auto) 0.0, Immature Platelet Fraction 1.7, Blood Gas Bicarbonate Standard 27.1, Venous Blood pH 7.415, Venous Blood Partial Pressure CO2 44.5, Venous Blood Partial Pressure O2 55.5H, Venous Blood Total Carbon Dioxide 29.3H, Venous Blood HCO3 27.9H, Venous Blood Oxygen Saturation 83.2H, Venous Blood Base Excess 3.0H, Anion Gap 6L, Glomerular Filtration Rate 45.8L, Lactic Acid Level 2.9*H, Calcium Level 9.0, Total Bilirubin 3.6H, Direct Bilirubin 1.7H, Aspartate Amino Transf (AST/SGOT) 42H, Alanine Aminotransferase (ALT/SGPT) 22, Alkaline Phosphatase 34L, Ammonia 146H, Total Creatine Kinase 51, Creatine Kinase MB 1.4, Creatine Kinase MB Relative Index 2.75, Troponin I 0.02, Total Protein 7.5, Albumin 2.4L, Albumin/Globulin Ratio 0.5, Thyroid Stimulating Hormone (TSH) 4.530H, Salicylates Level < 1.7L, Acetaminophen Level < 2.0L, Ethyl Alcohol Level 0.003 04/01/21 20:50: Coronavirus (COVID-19)(PCR) NEGATIVE, Influenza Type A (RT-PCR) NEGATIVE, Influenza Type B (RT-PCR) NEGATIVE, Respiratory Syncytial Virus (PCR) NEGATIVE 04/01/21 22:14: Prothrombin Time 21.1H, Prothromb Time International Ratio 1.78, Activated Partial Thromboplast Time 42.0H 04/02/21 00:43: Urine Opiates Screen NEGATIVE, Urine Methadone Screen NEGATIVE, Urine Barbiturates Screen NEGATIVE, Urine Phencyclidine Screen NEGATIVE, Urine Amphetamines Screen NEGATIVE, Urine Benzodiazepines Screen NEGATIVE, Urine Cocaine Metabolite Screen NEGATIVE, Urine Cannabinoids Screen NEGATIVE 04/02/21 00:44: Urine Color YELLOW, Urine Appearance CLEAR, Urine pH 7.0, Urine Specific [place] 1.010, Urine Protein NEGATIVE, Urine Glucose (UA) NEGATIVE, Urine Ketones NE GATIVE, Urine Blood 2+H, Urine Nitrite NEGATIVE, Urine Bilirubin NEGATIVE, Urine Urobilinogen 4.0H, Urine Leukocyte Esterase 1+H, Urine WBC (Auto) 9H, Urine RBC (Auto) 7H, Urine Hyaline Casts (Auto) 0, Urine Bacteria (Auto) 1+H, Urine Squamous Epithelial Cells 0, Urine Sperm (Auto) 04/02/21 01:52: Lactic Acid Followup at 4 Hours 2.1*H 04/02/21 12:12: 04/02/21 12:21: Nucleated Red Blood Cells % (auto) 0.0, Prothrombin Time 20.5H, Prothromb Time International Ratio 1.71, Anion Gap 7L, Glomerular Filtration Rate 53.6L, Calcium Level 9.4, Magnesium Level 2.0, Total Bilirubin 5.0H, Aspartate Amino Transf (AST/SGOT) 46H, Alanine Aminotransferase (ALT/SGPT) 24, Alkaline Phosphatase 35L, Ammonia 97H, Total Protein 7.2, Albumin 2.3L, Albumin/Globulin Ratio 0.5, Triglycerides Level 85, Total Cholesterol 113, LDL Cholesterol 48, Non-HDL Cholesterol (LDL + VLDL) 65, Total HDL Cholesterol 48, Cholesterol/HDL Ratio 2.354, Free Thyroxine 1.65H 04/02/21 17:57: Nucleated Red Blood Cells % (auto) 0.0 CBC/BMP Laboratory Tests 04/01/21 20:49 04/02/21 12:21 04/02/21 17:57 Microbiology Microbiology 04/02/21 Urine Culture, Received Pending 04/01/21 Blood Culture, Received Pending 04/01/21 Blood Culture, Received Pending TOMAS WOLFE D.O. Apr 02, 2021 19:20 YOLANDA MEAD MD Apr 03, 2021 07:58
--- NOTE | 2021-04-02 20:16 | ROOR ---
Patient Name: Neo Gaspar Procedure Date: 04/02/2021 7:20 PM Date of : 1965 Age: 56 Room: OR 1 Gender: Male Note Status: Finalized Procedure: Upper GI endoscopy Indications: Acute post hemorrhagic anemia, Iron deficiency anemia secondary to chronic blood loss, Cirrhosis rule out esophageal varices Providers: Bharat Lima MD Referring MD: 2. Inpatient 2. Inpatient Requesting Provider: Medicines: Monitored Anesthesia Care Complications: No immediate complications. Procedure: Pre-Anesthesia Assessment: - The heart rate, respiratory rate, oxygen saturations, blood pressure, adequacy of pulmonary ventilation, and response to care were monitored throughout the procedure. The Endoscope was introduced through the mouth, and advanced to the second part of duodenum. The upper GI endoscopy was accomplished without difficulty. The patient tolerated the procedure well. Findings: Small nonbleeding varices were found in the lower third of the esophagus. The entire examined stomach was normal. The examined duodenum was normal. Clear fluid was found in the esophagus,stomach and duodenum. (No bleeding source determined on this exam). Impression: - Small/minimal nonbleeding esophageal varices. - Normal stomach. - Normal examined duodenum. - Clear fluid throughout. - (No bleeding source determined on this exam). - No specimens collected. Recommendation: - Perform a colonoscopy tomorrow. - (Pt is confused/not cooperative--NG tube was placed for colon prep today.) Procedure Code(s): --- Professional --- 73988, Esophagogastroduodenoscopy, flexible, transoral; diagnostic, including collection of specimen(s) by brushing or washing, when performed (separate procedure) Diagnosis Code(s): --- Professional --- K74.60, Unspecified cirrhosis of liver D50.0, Iron deficiency anemia secondary to blood loss (chronic) D62, Acute posthemorrhagic anemia I85.10, Secondary esophageal varices without bleeding CPT copyright 2019 [employer]. All rights reserved. The codes documented in this report are preliminary and upon auditing coder review may be revised to meet current compliance requirements. Bharat Lima MD Bharat Lima MD 04/02/2021 8:16:00 PM Electronically signed by Bharat Lima MD Number of Addenda: 0 Note Initiated On: 04/02/2021 7:20 PM Estimated Blood Loss: Estimated blood loss: none.
[2021-04-02] MEDS ORDERED: MOM 30ML SUSPENSION UDC NG ONE (20:20)
[2021-04-02] MEDS ORDERED: POLYETHYLENE GLYCOL (MIRALAX) 238GM BOTTLE NG ONE (21:00)
[2021-04-03] VITALS (7 sets, daily range): BP systolic 119–172; BP diastolic 65–81
--- NOTE | 2021-04-03 00:11 | REPVR ---
PROCEDURE INFORMATION: Exam: XR Chest Exam date and time: 04/02/2021 11:05 PM Age: 56 years old Clinical indication: Device placement; Ng tube; Additional info: Reinserted ng tube. Please check position TECHNIQUE: Imaging protocol: XR of the chest. Views: 1 view. COMPARISON: CR PORTABLE CHEST X-RAY 04/01/2021 7:32 PM FINDINGS: Tubes, catheters and devices: NG tube extending into the stomach. Right PICC line extending to the distal superior vena cava. Lungs: The left lung is similar. Increased right base atelectasis. Pleural spaces: Question of small bilateral pleural effusions. Heart/Mediastinum: The heart and mediastinum are unchanged. Bones/joints: Unremarkable. IMPRESSION: 1. NG tube placement since 04/01/2021 extending into the stomach. 2. Interval placement of a right PICC line to the distal superior vena cava. 3. Slightly increased right base atelectasis since the prior study with persistent bilateral pleural effusions. Electronically signed by: Juanjose Hicks On 04/03/2021 00:10:20 AM
[2021-04-03] MEDS ORDERED: ONDANSETRON 4MG/2ML VIAL IV PRN (01:45)
[2021-04-03] MEDS ORDERED: LR 1,000 ML IV SCH (01:45)
[2021-04-03] MEDS ORDERED: PROMETHAZINE INJ 25 MG/ML VIAL (J2550) IV PRN (04:45)
[2021-04-03] MEDS ORDERED: BENZONATATE 100MG CAPSULE PO ONE (04:45)
[2021-04-03] MEDS ORDERED: DEXTROMETHORPHAN 60MG/10ML SUSP 90ML BTL(DELSYM) PO ONE (04:50)
[2021-04-03] MEDS ORDERED: POLYETHYLENE GLYCOL (MIRALAX) 238GM BOTTLE NG ONE (05:00)
[2021-04-03] MEDS: LACTULOSE 20 GM/30 ML SYRUP UD PO SCH ×3 (05:06→23:31)
[2021-04-03] MEDS: PIPERACILLIN/TAZOBACTAM SOD 3.375 GM in D5W MINI-BAG PLUS 50 ML IV SCH ×4 (05:06→23:31)
[2021-04-03] MEDS: SODIUM CHLORIDE 0.9% INJ 10 ML SYR IV SCH ×2 (05:06→18:51)
[2021-04-03 06:53] LABS: HEMATOCRIT 22.7 % (42.0-52.0); HEMOGLOBIN 7.4 g/dl (13.5-17.5); MEAN CORPUSCULAR HEMOGLOBIN 32.7 pg (27.0-33.0); MEAN CORPUSCULAR HGB CONC 32.6 g/dl (32.0-36.5); MEAN CORPUSCULAR VOLUME 100.4 fl (80.0-96.0); RED BLOOD COUNT 2.26 10^6/uL (4.30-6.10); WHITE BLOOD COUNT 6.3 10^3/uL (4.0-10.0)
[2021-04-03 06:57] LABS: PLATELET COUNT, AUTOMATED 89 10^3/uL (150-450)
[2021-04-03 07:02] LABS: INR 1.74; PROTHROMBIN TIME 20.7 SECONDS (12.7-14.5)
[2021-04-03 07:04] LABS: ALBUMIN 2.2 GM/DL (3.2-5.2); ALT/SGPT 35 U/L (12-78); BILIRUBIN,DIRECT 2.4 MG/DL (0.0-0.2); BILIRUBIN,TOTAL 5.9 MG/DL (0.2-1.0); BLOOD UREA NITROGEN 32 MG/DL (7-18); CARBON DIOXIDE LEVEL 30 MEQ/L (21-32); CHLORIDE LEVEL 105 MEQ/L (98-107); CREATININE FOR GFR 1.67 MG/DL (0.70-1.30); FERRITIN 113 NG/ML (26-388); GLOMERULAR FILTRATION RATE 45.2 (>56); GLUCOSE, FASTING 159 MG/DL (70-100); LDH LACTATE DEHYDROGENASE 226 U/L (87-241); SODIUM LEVEL 142 MEQ/L (136-145)
[2021-04-03 07:05] LABS: D-DIMER QUANT 2513.79 ng/ml (<500)
[2021-04-03] MEDS: SPIRONOLACTONE 25 MG TAB PO SCH ×2 (08:15→20:59)
[2021-04-03] MEDS: rifAXIMin 550 MG TAB (XIFAXAN) PO SCH ×2 (08:15→20:59)
[2021-04-03] MEDS: BUMETANIDE 1 MG TAB PO SCH ×2 (08:15→20:59)
[2021-04-03] MEDS: THIAMINE 200MG 2ML VIAL IM SCH (08:36)
--- NOTE | 2021-04-03 09:44 | REP ---
INDICATION: jaundice/ascites. COMPARISON: Comparison CT study January 13, 2018. TECHNIQUE: Right upper quadrant sonography. FINDINGS: Exam quality is substantially inhibited by patient body habitus an inability to cyst in position decubitus or suspend respirations. Liver was difficult to penetrate and hyperechoic. This is compatible with fatty infiltration. No focal liver lesion is seen. The common bile duct could not be visualized. There is echogenic sludge in the gallbladder lumen. No stone is seen. The gallbladder wall is somewhat thickened measuring 4.5 mm. No pericholecystic fluid is seen. Scanning in the left upper quadrant demonstrates moderate splenomegaly, 17.8 cm in greatest diameter. No focal splenic lesion is appreciated sonographically. There is no evidence of ascites. Renal cortical echogenicity pattern is normal and contours are smooth. Right renal dimensions are 10.8 x 6.8 x 5.8 cm. The left kidney measures 12.6 x 7.3 x 5.7 cm. IMPRESSION: Scan quality inhibited by patient factors. Evidence of fatty infiltration of the liver. Sludge in the gallbladder. Mildly thickened gallbladder wall. Moderate splenomegaly. No evidence of ascites. <Electronically signed by Yosi Teran > 04/03/21 [id number]
[2021-04-03] MEDS: OCTREOTIDE ACETATE 1,200 MCG in NS 238.8 ML IV SCH (10:23)
[2021-04-03 10:27] LABS: VITAMIN B12 LEVEL > 2000 PG/ML (247-911)
[2021-04-03 10:28] LABS: FOLATE 7.1 NG/ML (>5.4)
[2021-04-03] MEDS ORDERED: FLEET ENEMA PR ONE (13:00)
[2021-04-03] MEDS ORDERED: propofoL 200 MG/20 ML VIAL As Ordered ONE (13:49)
[2021-04-03] MEDS ORDERED: LIDOCAINE 2% 100MG/5ML SDV (FOR ANES.) As Ordered ONE (13:49)
[2021-04-03] MEDS ORDERED: PHENYLephrine 500MCG 5ML (100MCG/ML) SYRINGE As Ordered ONE (14:55)
--- NOTE | 2021-04-03 16:11 | ROOR ---
Patient Name: Neo Gaspar Procedure Date: 04/03/2021 2:39 PM Date of : 1965 Age: 56 Room: [facility] Gender: Male Note Status: Finalized Procedure: Colonoscopy Indications: Acute post hemorrhagic anemia Providers: Bharat Lima MD Referring MD: 2. Inpatient 2. Inpatient Requesting Provider: Medicines: Monitored Anesthesia Care Complications: No immediate complications. Procedure: Pre-Anesthesia Assessment: - The heart rate, respiratory rate, oxygen saturations, blood pressure, adequacy of pulmonary ventilation, and response to care were monitored throughout the procedure. The Colonoscope was introduced through the anus and advanced to 10 cm into the ileum. The colonoscopy was performed with difficulty due to inadequate bowel prep. Successful completion of the procedure was aided by lavage. The patient tolerated the procedure well. The quality of the bowel preparation was 30 percent obscured. Findings: The perianal and digital rectal examinations were normal. (EXAM: Complete, PREP: Suboptimal) The terminal ileum appeared normal. Hematin (altered blood/uzjzjf-[id number]-wfzo material) was found in the entire colon. Two small localized angioectasias with stigmata of recent bleeding were found in the ascending colon and in the cecum. For hemostasis, four hemostatic clips were successfully placed. There was no bleeding at the end of the procedure. A few small-mouthed diverticula were found in the sigmoid colon. There was no evidence of diverticular bleeding. Non-bleeding internal hemorrhoids were found during retroflexion. The hemorrhoids were moderate. Impression: - (EXAM: Complete, PREP: Suboptimal) - The examined portion of the ileum was normal. (fluid is clear yellow in terminal ileum, suggestive of colonic source for bleed) - Old black blood in the entire examined colon from cecum to rectum--extensive lavage. (prep improved but still quite poor) - Two 2-3 mm non bleeding red spots or tiny angioectasias in cecum/proximal ascending colon (dubious significance). Clips were placed. - Mild diverticulosis in the sigmoid colon. There was no evidence of diverticular bleeding. - Non-bleeding internal hemorrhoids. - No specimens collected. Only old blood is seen, there is no active bleeding at this time. The bleeding was likely from somewhere in the cecum/ascending colon. The two small red spots in the cecum/ascending colon may possibly represent tiny vascular ectasias, and were clipped prophylactically. Recommendation: Clear liquid diet, resume preop orders. d/c Octreotide, d/c NGT, monitor H&H, Cont Lactulose, Procedure Code(s): --- Professional --- 84844, Colonoscopy, flexible; with control of bleeding, any method Diagnosis Code(s): --- Professional --- K57.30, Diverticulosis of large intestine without perforation or abscess without bleeding D62, Acute posthemorrhagic anemia K55.21, Angiodysplasia of colon with hemorrhage K92.2, Gastrointestinal hemorrhage, unspecified K64.8, Other hemorrhoids CPT copyright 2019 [employer]. All rights reserved. The codes documented in this report are preliminary and upon advanced practice registered nurse review may be revised to meet current compliance requirements. Bharat Lima MD Bharat Lima MD 04/03/2021 4:11:01 PM Electronically signed by Bharat Lima MD Number of Addenda: 0 Note Initiated On: 04/03/2021 2:39 PM Estimated Blood Loss: Estimated blood loss: none.
--- NOTE | 2021-04-03 16:39 | GIPN ---
[facility] GI Progress Note GI Progress Note DATE: Apr 03, 2021 FOLLOW-UP: []. EGD results from yesterday and Colonoscopy results from today in chart. He remains confused, more somnolent today. IMPRESSION: []. 1) Alcoholic Hepatits on underlying Alcoholic cirrhosis, encephalopathy, coagulopathy. 2) Acute GI bleeding/probably ascending colon/colonic source-possible two small AVM-prophylactically clipped. This seems to have stopped spontaneously as evidenced of only old blood present on colonoscopy. 3) LFT/Hyperbilirubinemia direct: Likely related to #1 or Right heart failure. Pt with history of pulmonary hypertension/Cor pulmonale). US unfortunately was unable to r/o obstructive--CBD not seen. 3) Does not have ascites. Does not have SBP, Does not have significant esophageal varices. REC: 1) can d/c octreotide gtt 2) Monitor H&H, transfuse as needed 3) Will try to order MRCP. -- he may be too large to do MRI, in which case a HIDA scan will be ordered to at least prove patency of CBD. (CT Abdomen with iv contrast is on hold for now due to renal dysfunction) Allergies Coded Allergies: No Known Allergies (Unverified , 02/05/13) Current Medications Current Medications Medications (Trade) Dose Ordered Sig/Lauri Route PRN Reason Start Time Stop Time Status Last Admin Dose Admin Bumetanide (Bumex) 1 mg BID PO 04/02/21 09:00 04/02/21 21:22 Heparin Sodium (Heparin (Flush)) 200 units ASDIRECTED PRN IV SEE LABEL COMMENTS 04/02/21 11:50 Heparin Sodium (Heparin (Flush)) 200 units PICC IV 04/02/21 18:00 04/03/21 05:06 Home Med (Home Med List Complete!) ASDIRECTED XX 04/02/21 00:05 04/02/21 00:04 DC Lactated Ringer's 1,000 ml @ 75 mls/hr [id number] IV 04/03/21 01:45 04/03/21 03:00 DC Lactulose (Cephulac) 30 ml Q6H PO 04/02/21 06:00 04/03/21 05:06 Octreotide Acetate 1200 mcg/ Sodium Chloride 240 ml @ 10 mls/hr Q24H IV 04/02/21 11:00 04/03/21 10:23 Ondansetron HCl (ZOFRAN INJection) 4 mg Q4HP PRN IV NAUSEA OR VOMITING 04/03/21 01:45 04/03/21 03:00 DC Piperacillin Sod/ Tazobactam Sod 3.375 gm/Dextrose 50 ml @ 50 mls/hr Q6H IV 04/02/21 18:00 04/03/21 12:35 Promethazine HCl (PHENERGAN INJection) 25 mg Q4HP PRN IV NAUSEA 04/03/21 04:45 04/03/21 05:23 Rifaximin (Xifaxan) 550 mg BID PO 04/02/21 09:00 04/02/21 21:23 Sodium Chloride 1,000 ml @ 140 mls/hr Q7H9M IV 04/02/21 00:10 04/02/21 07:18 DC Sodium Chloride (Saline Lock Flush) 10 ml ASDIRECTED PRN IV SEE LABEL COMMENTS 04/02/21 11:50 Sodium Chloride (Saline Lock Flush) 10 ml PICC IV 04/02/21 18:00 04/03/21 05:06 Spironolactone (Aldactone) 25 mg BID PO 04/02/21 09:00 04/02/21 21:22 Thiamine HCl (VITAMIN B1 INJection) 100 mg DAILY IM 04/03/21 09:00 04/03/21 08:36 VS,Fishbone, I+O VS, Fishbone, I+O Laboratory Tests 04/02/21 17:57 04/03/21 06:20 Vital Signs Date Time Temp Pulse Resp B/P (MAP) Pulse Ox O2 Delivery O2 Flow Rate FiO2 04/03/21 16:09 97.2 97 18 146/69 (94) 95 Room Air 04/02/21 20:20 10.0 I&O- Last 24 Hours up to 6 AM 04/03/21 06:00 Intake Total 2435 ml Output Total 3100 ml Balance -665 ml SOPHIA MCLAIN MD Apr 03, 2021 16:39
[2021-04-03] MEDS ORDERED: LACTULOSE 20 GM/30 ML SYRUP UD NG SCH (18:00)
--- NOTE | 2021-04-03 18:15 | IPNPDOC ---
Date Seen The patient was seen on 04/03/21. Progress Note SUBJECTIVE: Neo had a quite extensive evening and overnight. Per report, patient became agitated and pulled out his NG tube which had been placed after his EGD yesterday. A sitter was ordered. Patient did develop some emesis and coughing fits and was administered Tessalon Perles, dextromethorphan, and promethazine. Apparently Zofran had been ineffective. Results of patient's EGD yesterday did not show any active sources of bleeding and was positive for small nonbleeding varices in the lower third of the esophagus. Patient was subsequently scheduled by gastroenterology for colonosc opy to be done today to assess for bleeding. Neo was seen and examined this morning while lying upright in bed by the hospital service. Unfortunately he remains obtunded and quite encephalopathic and only momentarily opens his eyes to strong sternal rub and calling of his name. He is unresponsive to any questions or commands. At the time of our evaluation, his NG tube is out. OBJECTIVE PHYSICAL EXAMINATION: VITAL SIGNS: Please see below. GENERAL: obese male obtunded lying upright in bed. NG tube in place but has been clamped and not currently active. He is barely responsive to strong sternal rub and loudly calling out his name. HEENT: Normocephalic, atraumatic. Scleral icterus, mild to moderate is present bilaterally. Mild conjunctival pallor. Skin: There is visible jaundice of patient's skin overlying the face, more so today than yesterday. CARDIOVASCULAR: Continues to be roughly 2/6 midsystolic murmur present. Heart sounds remain distant. Normal S1, S2. Regular rate, regular rhythm. RESPIRATORY: Patient is breathing shallow breaths and due to his altered m entation, he is not following commands to take deeper breaths. Breathing room air. Due to limited tidal volume difficult to auscultate with any type of accuracy; no adventitious breath sounds were appreciated with from what could be auscultated. ABDOMINAL: Hypoactive bowel sounds with distended abdomen. Significantly obese, soft. Abdominal striae a. Umbilical hernia remains present. Again there appears to be some significant left-sided lower quadrant abdominal fluid dependency/collection with associated overlying induration of skin. No caput medusa. Genitourinary: Brown catheter remains in place with approximately 1 L of dark yellow-colored urine present. EXTREMITIES: There is significant bilateral lower extremity edema with chronic venous stasis changes. There is associated significant induration of skin with some darkening/hyperpigmentation distally. Due to lower extremity edema very difficult to appreciate pedal pulses. NEUROLOGICAL: Patient is obtunded and encephalopathic, he momentarily opens his eyes with forceful sternal rub and calling out his name. Unable to assess for asterixis due to altered mental state, unable to respond to any questions or commands. LABORATORY DATA, IMAGING STUDIES, MICROBIOLOGY: Please see below. ASSESSMENT AND PLAN: This is a 56-year-old man with notable history of alcoholic liver cirrhosis with varices, HAV positive, obesity, MRSA bacteremia, A. fib, hypertension, LEELA with unknown CPAP status who was admitted in the early hours of 04/02 after being brought in by his nephew due to increased confusion at home. Patient was admitted for acute decompensation of alcoholic liver cirrhosis with encephalopathy and blood loss anemia. Patient subsequently seemed to have a consumptive hematological process going on with anemia, thrombocytopenia, and reticulocytosis. Patient also has acute renal failure. #Altered mental status likely secondary to hepatic encephalopathy with hyperammonemia -There is a concern for possible concurrent consumptive hematological process due to reasons detailed below -Calculated on 04/02 based on presenting labs: Meld sodium score of 24 points (14-15% estimated 90-day mortality) and child Correia score of 13 points/class C (life expectancy 1-3 years); abdominal surgery perioperative mortality risk is 82% #Possible consumptive hematological process, namely thrombotic thrombocytopenic purpura (TTP) -In the setting of patient's refractory anemia, encephalopathy, acute renal failure, coagulopathy, thrombocytopenia, and hyperbilirubinemia, a process such as TTP is a possibility. -Patient was given 5 units of blood yesterday which only raised his hemoglobin from 5.6-7.4; this is a brenna for concern as it did not represent an adequate response to such an amount of transfusion. -Abdominal ultrasound ordered today to assess for any internal bleeding; no internal bleeding seen on results patient had significant splenomegaly. -We will assess results of this afternoon's colonoscopy to assess for bleeding source. EGD on 04/02 was unremarkable for any definitive bleeding source. -Should there be no definitive active bleeding source, likely etiology will be consumptive hematological process -Patient is retaking based on labs showing adequate bone marrow response, but thrombocytopenia has worsened as well as the refractory anemia; fibrinogen was WNL and D-dimer was significantly elevated -Due to splenomegaly on imaging on 04/03, as well as lack of bleeding source on EGD and no internal bleeding seen on abdominal ultrasound, there is a concern for sequestering of blood in the spleen. #Decompensated alcoholic liver cirrhosis with associated encephalopathy, direct hyperbilirubinemia, hyperammonemia, and GI bleed -Dr. Lima of gastroenterology has been consulted. Hospitalist services greatly appreciative of Dr. Lima's involvement and continued recommendations. -Calculated on 04/02 based on presenting labs: Meld sodium score of 24 points (14-15% estimated 90-day mortality) and child Correia score of 13 points/class C (life expectancy 1-3 years); abdominal surgery perioperative mortality risk is 82% -Ammonia increased to 189 on 04/03 from 97 upon admission. Plan is to resume lactulose via NG tube after patient returns for colonoscopy as patient has been n.p.o. leading into the scope and pulled out his NG tube overnight. -Total bilirubin and direct bilirubin both increased to 5.9 and 2.4 on 04/03 respectively (were 5.0 and 1.7 respectively on 04/02). -EGD on 04/02 did not reveal any esophageal varices -Patient had been n.p.o. in preparation for colonoscopy today; plan to resume lactulose via NG tube when patient returns from scope. -FOBT positive in ED; patient has had multiple loose melenic stools. -Abdominal ultrasound on 04/03 showed fatty liver with mildly thickened gallbladder wall and moderate splenomegaly and no evidence of ascites. -No obstructive biliary process was appreciated in CBD was not seen. -Patient has remained hemodynamically stable since admission. -Patient was started on thiamine on the evening of 04/02 due to concern for possible Warnicke's encephalopathy -C/w Zosyn for possible abdominal infectious process. -Continuing on IV octreotide drip in the setting of possible GI bleed with colonoscopy this afternoon. -We will continue to monitor blood counts and transfuse as needed. #Blood loss anemia likely secondary to GI bleed in setting of decompensated liver cirrhosis with possible underlying consumptive hematological process -Please see assessments above which detail possible etiologies -There is concern that patient may be sequestering blood in his spleen. -Continuing to monitor blood counts and transfuse as needed -Peripheral smear was ordered showing: Macrocytic anemia with reticulocytosis, moderate thrombocytopenia. There are no nucleated red blood cells and leukocytes appeared normal in number. #Acute renal failure with no known history of chronic kidney disease, worsening -Serum creatinine on 04/03 was 1.67 (up from 1.44 on 04/02); calculated GFR was 45% on 03/27 (down from 53.6 on 04/02). -Possibly secondary to acutely decompensated alcoholic liver cirrhosis and or consumptive hematological process such as TTP. #Significantly elevated D-dimer -D-dimer was 25,000. -In the setting of patient's acute renal failure, CTA was deferred and a bilateral lower extremity ultrasound ordered post colonoscopy. #Elevated lactate likely secondary to liver cirrhosis -Initial lactic acid was 2.9 with follow-up of 2.1 -This is likely secondary to patient's inability to efficiently clear lactic acid due to liver cirrhosis -Antibiotics will be ordered for SBP prophylaxis #Abnormal urinalysis -UA was ordered and showed 1+ leuk esterase with 1+ urine bacteria and there is a pending reflex to urine culture. -Due to critical monitoring, urinary retention, and incontinent voiding, a condom catheter was initially started but due to anatomy issues, a Brown catheter was placed by nursing #Splenomegaly -Found on abdominal imaging today -Greatest diameter was measured at approximately 17.8 cm -There is concern that patient may be sequestering blood in his spleen in the setting of the above detailed possibility of consumptive hematological process. #Fatty liver -This was incidentally found on 04/03 abdominal ultrasound. Likely also contributed patient cirrhosis in addition to alcoholic component. #Chronic lower extremity edema -Patient's last echocardiogram (a GALDINO) on file was in July 2017 which was done when patient had MRSA bacteremia. Relevant findings showed EF of 60% with mild mitral regurgitation, mild aortic regurgitation, mild aortic valve sclerosis, mild mitral annular calcification, there were no vegetations, and there was normal left ventricular wall motion and systolic function. -Bilateral lower extremity duplex ultrasound ordered upon return from colonoscopy in the setting of elevated D-dimer #DVT prophylaxis: Teds and sequentials ordered in the setting of acute blood loss anemia, thrombocytopenia and upcoming colonoscopy. CODE STATUS: Full code Disposition: This patient is ill and is going for colonoscopy this afternoon to assess for possible bleeding source. Patient has significant mortality risk from decompensated alcoholic liver cirrhosis with GI bleed and possible hepatorenal syndrome as well as possible consumptive hematological process. Due to acute status, prognosis remains guarded. GME ATTESTATION My faculty preceptor for this patient encounter was physically present during the encounter and was fully available. All aspects of the patient interview, examination, medical decision making process, and medical care plan development were reviewed and approved by the faculty preceptor. The faculty preceptor is aware and concurs with the plan as stated in the body of this note and will attest to such by his/her cosignature. ATTENDING NOTE I personally examined Mr. Gaspar and discussed the physical exam findings, investigative findings and discussed the plan as detailed by the resident physician above. I agree with their noted findings and plan. In addition, Mr. Gaspar's encephalopathy appears to be the same if not worse, with worsening hyperammonemia, and as I previously remarked not sure if anemia is all due to GIB given constellation of refractory anemia, MICHEL, enephalopathy, thrombocytopenia, coagulopathy, hyperbilirubinemia thus the expansion to consider hemolytic processes such as DIC vs. TTP in addition to decompensated cirrhosis with GIB and hepatic encephalopathy. GI is onboard, upper endoscopy was unrevealing for loss of that degree of blood showing small esophageal non- bleeding varices and he is having a colonoscopy today. VS, I&O, 24H, Fishbone Vital Signs/I&O Vital Signs Date Time Temp Pulse Resp B/P (MAP) Pulse Ox O2 Delivery O2 Flow Rate FiO2 04/03/21 17:05 97.0 94 17 119/65 (83) 93 Room Air 04/02/21 20:20 10.0 I&O- Last 24 Hours up to 6 AM 04/03/21 06:00 Intake Total 2435 ml Output Total 3100 ml Balance -665 ml Laboratory Data 24H LABS Laboratory Tests 2 04/02/21 17:57: Nucleated Red Blood Cells % (auto) 0.0 04/03/21 06:20: Nucleated Red Blood Cells % (auto) 0.0, Reticulocyte # (auto) 111.4H, Differential Slide Review Report, Immature Platelet Fraction 1.9, Peripheral Blood Smear Path Consult PERIPHERAL SMEAR, Percent Reticulocyte Count 4.9H, Reti culocyte Hemoglobin Equivalent 41.6H, Prothrombin Time 20.7H, Prothromb Time International Ratio 1.74, Fibrinogen 231, D-Dimer, Quantitative 2513.79H, Anion Gap 7L, Glomerular Filtration Rate 45.2L, Calcium Level 9.0, Ferritin 113, Total Bilirubin 5.9H, Direct Bilirubin 2.4H, Aspartate Amino Transf (AST/SGOT) 81H, Alanine Aminotransferase (ALT/SGPT) 35, Alkaline Phosphatase 32L, Lactate Dehydrogenase 226, Total Protein 7.0, Albumin 2.2L, Albumin/Globulin Ratio 0.5, Vitamin B12 Level > 2000H, Folate 7.1 04/03/21 07:43: Ammonia 189H 04/03/21 11:51: Bedside Glucose (Misc Panel) 164H CBC/BMP Laboratory Tests 04/02/21 17:57 04/03/21 06:20 Microbiology Microbiology 04/03/21 Blood Culture, Received Pending 04/03/21 Blood Culture, Received Pending 04/02/21 Urine Culture, Received Pending 04/01/21 Blood Culture - Preliminary, Resulted No growth after 24 hours . All specim... 04/01/21 Blood Culture - Preliminary, Resulted TOMAS WOLFE D.O. Apr 03, 2021 18:15 YOLANDA MEAD MD Apr 03, 2021 18:26
--- NOTE | 2021-04-03 18:31 | REP ---
INDICATION: elevated Ddimer w/ damon . COMPARISON: None. TECHNIQUE: Multiple ultrasonographic images of the deep venous structures of the bilateral lower extremity were obtained from the inguinal ligament to the ankle. Venous compression techniques, color doppler imaging, and augmentation techniques were also obtained where appropriate. As per the ACR guidelines the anterior tibial vein can not be effectively evaluated. Only compression techniques in the calf on the peroneal and posterior tibial veins was attempted/performed. FINDINGS: There is no abnormal echogenic material seen within any of the visualized deep venous structures that would suggest acute thrombosis. Coaptation is unremarkable throughout. Doppler interrogation shows an expected response to respiratory variability and augmentation in the thigh. Compression techniques in the calf were unobtainable. The color flow images show what appears to be a normal vascular pattern throughout the thigh. IMPRESSION: There is no ultrasonographic evidence of deep venous thrombosis involving any of the visualized deep venous structures of the bilateral lower extremity as described above. Due to technical parameters calf vein DVT can not be ruled out. <Electronically signed by Poncho Palencia > 04/03/21 [id number]
[2021-04-04] VITALS (8 sets, daily range): BP systolic 136–180; BP diastolic 60–83
[2021-04-04] MEDS: LACTULOSE 20 GM/30 ML SYRUP UD PO SCH ×4 (04:58→23:56)
[2021-04-04] MEDS: PIPERACILLIN/TAZOBACTAM SOD 3.375 GM in D5W MINI-BAG PLUS 50 ML IV SCH (05:41)
[2021-04-04] MEDS: SODIUM CHLORIDE 0.9% INJ 10 ML SYR IV SCH ×2 (05:41→18:00)
[2021-04-04 06:01] LABS: HEMATOCRIT 23.3 % (42.0-52.0); HEMOGLOBIN 7.6 g/dl (13.5-17.5); MEAN CORPUSCULAR HEMOGLOBIN 33.5 pg (27.0-33.0); MEAN CORPUSCULAR HGB CONC 32.6 g/dl (32.0-36.5); MEAN CORPUSCULAR VOLUME 102.6 fl (80.0-96.0); RED BLOOD COUNT 2.27 10^6/uL (4.30-6.10); WHITE BLOOD COUNT 6.8 10^3/uL (4.0-10.0)
[2021-04-04 06:20] LABS: ALBUMIN 2.3 GM/DL (3.2-5.2); BILIRUBIN,TOTAL 5.4 MG/DL (0.2-1.0); CALCIUM LEVEL 8.6 MG/DL (8.5-10.1); CREATININE FOR GFR 1.66 MG/DL (0.70-1.30); GLOMERULAR FILTRATION RATE 45.5 (>56); MAGNESIUM LEVEL 2.4 MG/DL (1.8-2.4); POTASSIUM SERUM 3.2 MEQ/L (3.5-5.1); TOTAL PROTEIN 7.2 GM/DL (6.4-8.2)
[2021-04-04 06:22] LABS: PLATELET COUNT, AUTOMATED 99 10^3/uL (150-450)
[2021-04-04] MEDS: KCL 20MEQ IN 100ML SWI (KRUN) 20 MEQ in IV 1 EA IV SCH ×4 (08:31→09:42)
[2021-04-04] MEDS: rifAXIMin 550 MG TAB (XIFAXAN) PO SCH ×2 (08:31→21:44)
[2021-04-04] MEDS: SPIRONOLACTONE 25 MG TAB PO SCH (08:31)
[2021-04-04] MEDS: BUMETANIDE 1 MG TAB PO SCH (08:31)
[2021-04-04] MEDS: THIAMINE 200MG 2ML VIAL IM SCH (08:31)
[2021-04-04] MEDS: CIPROFLOXACIN 500MG TABLET PO SCH ×2 (11:19→17:59)
[2021-04-04] MEDS: metroNIDAZOLE (FLAGYL) 500MG TABLET PO SCH ×2 (14:27→21:45)
[2021-04-04] MEDS: LACTOBACILLUS ACIDOPHILUS CAP (BACID) PO SCH (15:12)
[2021-04-04] MEDS: SUCRALFATE 1 GM TAB PO SCH (17:59)
[2021-04-04] MEDS: NADOLOL 20MG TABLET PO SCH (17:59)
--- NOTE | 2021-04-04 18:01 | IPNPDOC ---
Date Seen The patient was seen on 04/04/21. Progress Note SUBJECTIVE: Neo was seen and examined this morning at bedside by the hospitalist service. He is doing considerably better from a neurocognitive standpoint as he is conversant, interactive, alert this morning (oriented x3); responding to all questions and commands appropriately. The colonoscopy performed on 04/03 did not show any active bleeding, simply old blood was present in possible areas of vascular ectasia. Patient has had 3 bowel movements during the overnight. On review this morning, patient denies any significant overall pain. He also denies any current or overnight fever, chills, night sweats, chest pressure, palpitations, chest pain, dyspnea, pleuritic chest pain, abdominal pain/nausea/vomiting. OBJECTIVE PHYSICAL EXAMINATION: VITAL SIGNS: Please see below. GENERAL: male lying upright in bed. Mentation significantly improved over exams on prior days as patient is alert interactive and oriented x3. No acute distress. HEENT: Normocephalic, atraumatic. NG tube still remains in place. Some facial pallor is present along with moderate erythema bilateral cheeks, rosacea-like. Patient also continues to have some facial jaundice and scleral icterus but both are improved from prior exams. Mild conjunctival pallor. CARDIOVASCULAR: Regular rate, regular rhythm. Normal S1, S2. 2/6 systolic murmur remains present. Heart sounds somewhat distant. RESPIRATORY: Patient is now responsive and taking deep breaths upon command. There is some mild bibasilar rhonchi, with no other significant adventitious breath sounds appreciated. Symmetric chest expansion. Breathing room air. ABDOMINAL: Normoactive bowel sounds with distended abdomen. There are high- pitched, tinkling belly sounds most prominent in the left upper quadrant. Significantly obese. Soft abdomen. Significant left-sided lower quadrant abdominal fluid dependency/collection with associated overlying induration of skin. No caput medusa. EXTREMITIES: There is significant bilateral lower extremity edema with chronic venous stasis changes. There is associated significant induration of skin with some darkening/hyperpigmentation distally. Due to lower extremity edema, quite difficult to appreciate pedal pulses. NEUROLOGICAL: Patient is considerably improved over previous exams as he is now alert and oriented to person, place, time, and situation. He follows through on commands appropriately. At times with some questions, he will drift off into thought, but is significantly improved over prior days. Bilateral resting tremors of upper extremities remain and there is some moderate asterixis. PSYCHOLOGICAL: Pleasant mood. Affect appears appropriate. LABORATORY DATA, IMAGING STUDIES, MICROBIOLOGY: Please see below. Portable chest x-ray, 04/01/2021 FINDINGS: Lungs: Unremarkable. No consolidation. Pleural spaces: Unremarkable. No pleural effusion. No pneumothorax. Heart/Mediastinum: Unremarkable. No cardiomegaly. Bones/joints: Unremarkable. IMPRESSION: No acute findings. Head CT without contrast, 04/01/2021 FINDINGS: Brain: Mild parenchymal atrophy. No significant white matter disease. Cerebral ventricles: No ventriculomegaly. Paranasal sinuses: Visualized sinuses are unremarkable. No fluid levels. Mastoid air cells: Visualized mastoid air cells are well aerated. Bones/joints: Unremarkable. No acute fracture. Soft tissues: Unremarkable. IMPRESSION: Mild parenchymal atrophy. No significant white matter disease. Portable chest x-ray, 04/02/2021 FINDINGS: Tubes, catheters and devices: NG tube extending into the stomach. Right PICC line extending to the distal superior vena cava. Lungs: The left lung is similar. Increased right base atelectasis. Pleural spaces: Question of small bilateral pleural effusions. Heart/Mediastinum: The heart and mediastinum are unchanged. Bones/joints: Unremarkable. IMPRESSION: 1. NG tube placement since 04/01/2021 extending into the stomach. 2. Interval placement of a right PICC line to the distal superior vena cava. 3. Slightly increased right base atelectasis since the prior study with persistent bilateral pleural effusions. Abdominal complete ultrasound, 04/03/2021 FINDINGS: Exam quality is substantially inhibited by patient body habitus an inability to cyst in position decubitus or suspend respirations. Liver was difficult to penetrate and hyperechoic. This is compatible with fatty infiltration. No focal liver lesion is seen. The common bile duct could not be visualized. There is echogenic sludge in the gallbladder lumen. No stone is seen. The gallbladder wall is somewhat thickened measuring 4.5 mm. No pericholecystic fluid is seen. Scanning in the left upper quadrant demonstrates moderate splenomegaly, 17.8 cm in greatest diameter. No focal splenic lesion is appreciated sonographically. There is no evidence of ascites. Renal cortical echogenicity pattern is normal and contours are smooth. Right renal dimensions are 10.8 x 6.8 x 5.8 cm. The left kidney measures 12.6 x 7.3 x 5.7 cm. IMPRESSION: Scan quality inhibited by patient factors. Evidence of fatty infiltration of the liver. Sludge in the gallbladder. Mildly thickened gallbladder wall. Moderate splenomegaly. No evidence of ascites. Vascular ultrasound, bilateral lower extremities, 04/03/2021 FINDINGS: There is no abnormal echogenic material seen within any of the visualized deep venous structures that would suggest acute thrombosis. Coaptation is unremarkable throughout. Doppler interrogation shows an expected response to respiratory variability and augmentation in the thigh. Compression techniques in the calf were unobtainable. The color flow images show what appears to be a normal vascular pattern throughout the thigh. IMPRESSION: There is no ultrasonographic evidence of deep venous thrombosis involving any of the visualized deep venous structures of the bilateral lower extremity as described above. Due to technical parameters calf vein DVT can not be ruled out. ASSESSMENT AND PLAN: This is a 56-year-old man with notable history of alcoholic liver cirrhosis with varices, HAV positive, obesity, MRSA bacteremia, A. fib, hypertension, LEELA with unknown CPAP status who was admitted in the early hours of 04/02 after being brought in by his nephew due to increased confusion at home. Patient was admitted for acute decompensation of alcoholic liver cirrhosis with enc ephalopathy and blood loss anemia. Patient subsequently seemed to have a consumptive hematological process going on with anemia, thrombocytopenia, and reticulocytosis: Along with concurrent acute renal failure. From , hemoglobin remained stable with no active bleeding seen on EGD or colonoscopy and patient was thought to ultimately have suffered a GI bleed prior to presentation. #Altered mental status likely secondary to hepatic encephalopathy with hyperammonemia, significantly improved -Patient had been obtunded on exam both 04/02 and 04/03, but was significantly improved on 04/04 after ammonia dropped from 189 down to 37. -Patient had 3 bowel movements on the overnight of , and is continuing with oral lactulose; lactulose titrated for 5 bowel movements in 24- hour period. -NG tube removed on 04/04; bedside swallow evaluation ordered with patient's improved mentation to ensure low aspiration risk. #Decompensated alcoholic liver cirrhosis with associated encephalopathy, direct hyperbilirubinemia, hyperammonemia, and GI bleed -Overall, patient has improved greatly over the past 24 hours as his hemoglobin is remained stable not requiring transfusions and he has had multiple bowel movements with lactulose dosing -Ammonia improved to 37 (04/04) from 189 (04/03) -Dr. Lima of gastroenterology consulted. Hospitalist services greatly appreciative of Dr. Lima's involvement and continued recommendations. -Calculated via 04/02 presenting labs: Meld sodium score of 24 points (14-15% estimated 90-day mortality) and child Correia score of 13 points/class C (life e xpectancy 1-3 years); abdominal surgery perioperative mortality risk is 82% -Total bilirubin and direct bilirubin improved on 04/04 for the first time since admission (T bili 5.4 on 04/04, was 5.9 on 04/03) -Patient had been n.p.o. in preparation for colonoscopy today; plan to resume lactulose via NG tube when patient returns from scope. -FOBT positive in ED; patient had multiple loose melenic stools. -EGD on 04/02 did not reveal any esophageal varices or active source of bleeding -Colonoscopy on 04/03 showed no active sources of bleeding, just old blood in the colon and some possible areas of vascular ectasias -Abdominal ultrasound on 04/03 showed fatty liver with mildly thickened gallb ladder wall and moderate splenomegaly and no evidence of ascites. -No obstructive biliary process was appreciated and CBD was not seen. -Patient continues to remain hemodynamically stable -Thiamine started on the evening of 04/02 due to concern for possible Warnicke's encephalopathy; vitamin B1 level pending -Zosyn started for SBP prophylaxis on 04/02 by gastroenterology; stopped on day 3, 04/04 -Patient transition to metronidazole on 04/04 as well as ciprofloxacin (also covering Enterococcus faecalis positive urine culture) -IV octreotide drip stopped on 04/03 after no active sources of bleeding seen on either EGD or colonoscopy -Twice daily PPI, Carafate, probiotic, and low-dose nadolol all started on 04/04 -Continue to monitor blood counts and transfuse as needed. #Enterococcus faecalis urinary infection -Abnormal UA (1+ leuk esterase with 1+ urine bacteria) with reflex to culture that grew Enterococcus faecalis -With sensitivity to ciprofloxacin, patient was started on ciprofloxacin on 04/04; also getting metronidazole for possible concurrent anaerobic/intra-abd ominal infection #Possible consumptive hematological process, namely thrombotic thrombocytopenic purpura (TTP) -In the setting of patient's refractory anemia, encephalopathy, acute renal failure, coagulopathy, thrombocytopenia, and hyperbilirubinemia, a process such as TTP was a leading possibility -At this time, this is less likely as patient's hemoglobin has remained stable over the past 24 hours, fibrinogen was WNL, and thrombocytopenia is improving -Patient was given 5 units of blood on 04/02 which only raised his hemoglobin from 5.6-7.4; this initially was a marked for concern, but patient is seen stability over the past 24 hours. -Abdominal ultrasound 04/03: no internal bleeding seen on results patient had significant splenomegaly. -Colonoscopy (04/03) and EGD (04/02) were unremarkable for any definitive bleeding source which pointed to possible consumptive process; but hemoglobin has remained stable -Patient displayed adequate reticulocyte/bone marrow response based on labs showing adequate bone marrow response -Due to splenomegaly on imaging on 04/03, as well as lack of bleeding source on EGD and no internal bleeding seen on abdominal ultrasound, there is a concern for sequestering of blood in the spleen. #Blood loss anemia likely secondary to GI bleed in setting of decompensated liver cirrhosis with possible underlying consumptive hematological process, stable -Prevailing thought at this time is that patient did suffer a GI bleed prior to presenting to the hospital which required multiple transfusions that finally stabilized hemoglobin -Hemoglobin has remained stable in the mid sevens for the past 24 hours -Please see assessments above which detail possible etiologies Concern for sequestration of blood and spleen due to splenomegaly (diameter 17.8 cm) -Continuing to monitor blood counts and transfuse as needed -Peripheral smear: Macrocytic anemia with reticulocytosis, moderate thrombocytopenia. No nucleated red blood cells and leukocytes appeared normal in number. #Acute renal failure with no known history of chronic kidney disease, stable -Serum creatinine on 04/03 was 1.66 (similar to 1.67 on 04/02); calculated GFR was 45% -Most likely secondary to acutely decompensated alcoholic liver cirrhosis, with lesser consideration for consumptive hematological process. #History of esophageal varices -Per review of chart, patient has a history of esophageal varices; EGD report from 04/02 did not remark upon any significant varices visualized -Low-dose nadolol started on 04/04 for preventative measures with patient's now tolerance of p.o. -Patient has remained hemodynamically stable since admission #Hypokalemia -Serum potassium 3.2 on 04/04; likely result of multiple recent bowel movements with lactulose dosing -IV repletion -Monitor follow-up metabolic panel #Significantly elevated D-dimer -D-dimer was 25,000. -In the setting of patient's acute renal failure, CTA was deferred and a bilateral lower extremity ultrasound ordered post colonoscopy. -Bilateral lower extremity (04/03) was negative for any visualized deep vein thromboses #Elevated lactate likely secondary to liver cirrhosis -Initial lactic acid was 2.9 with follow-up of 2.1; likely secondary to patient's inability to efficiently clear lactic acid due to liver cirrhosis -Patient received 3 days of Zosyn and was transitioned over to oral metronidazol e and ciprofloxacin (Enterococcus faecalis UTI) 04/04 #Splenomegaly -Found on abdominal imaging today -Greatest diameter was measured at approximately 17.8 cm -There is concern that patient may be sequestering blood in his spleen in the setting of the above detailed possibility of consumptive hematological process. #Fatty liver -This was incidentally found on 04/03 abdominal ultrasound. Likely also contributing factor to patient's cirrhosis in addition to alcoholic component. #Chronic lower extremity edema -Patient's last echocardiogram (a [facility]) on file was in July 2017 which was done when patient had MRSA bacteremia. Relevant findings showed EF of 60% with mild mitral regurgitation, mild aortic regurgitation, mild aortic valve sclerosis, mild mitral annular calcification, there were no vegetations, and there was normal left ventricular wall motion and systolic function. -Bilateral lower extremity duplex ultrasound ordered upon return from colonoscopy in the setting of elevated D-dimer -Negative for any visualized DVTs #Deconditioning -PT/OT evaluation ordered on 04/04 in setting of improved mentation. #DVT prophylaxis: Teds and sequentials ordered in the setting of blood loss anemia and thrombocytopenia. CODE STATUS: Full code Disposition: Patient showed great improvement on 04/04 with multiple bowel movements and significant improvement in hyperammonemia and mental functioning. He remains in PCU and is pending continued improvement. GME ATTESTATION My faculty preceptor for this patient encounter was physically present during the encounter and was fully available. All aspects of the patient interview, examination, medical decision making process, and medical care plan development were reviewed and approved by the faculty preceptor. The faculty preceptor is aware and concurs with the plan as stated in the body of this note and will attest to such by his/her cosignature. ATTENDING NOTE I personally examined the patient together with the medical student and we obtained the interim together, discussed his dramatic improvement, investigative results and I agree with the above noted findings, assessment and plan. VS, I&O, 24H, Fishbone Vital Signs/I&O Vital Signs Date Time Temp Pulse Resp B/P (MAP) Pulse Ox O2 Delivery O2 Flow Rate FiO2 04/04/21 08:03 97.7 100 20 136/83 (100) 92 Room Air 04/02/21 20:20 10.0 I&O- Last 24 Hours up to 6 AM 04/04/21 06:00 Intake Total 160 ml Output Total 4175 ml Balance -4015 ml Laboratory Data 24H LABS Laboratory Tests 2 04/04/21 05:29: Nucleated Red Blood Cells % (auto) 0.0, Anion Gap 4L, Glomerular Filtration Rate 45.5L, Calcium Level 8.6, Magnesium Level 2.4, Total Bilirubin 5.4H, Aspartate Amino Transf (AST/SGOT) 70H, Alanine Aminotransferase (ALT/SGPT) 35, Alkaline Phosphatase 34L, Ammonia 37H, Total Protein 7.2, Albumin 2.3L, Albumin/Globulin Ratio 0.5 CBC/BMP Laboratory Tests 04/04/21 05:29 Microbiology Microbiology 04/03/21 Blood Culture - Preliminary, Resulted No growth after 24 hours . All specim... 04/03/21 Blood Culture - Preliminary, Resulted No growth after 24 hours . All specim... 04/02/21 Urine Culture - Final, Complete Enterococcus Faecalis 04/01/21 Blood Culture - Preliminary, Resulted No Growth after 48 hours. All Specime... 04/01/21 Blood Culture - Final, Complete Staphylococcus Cohnii TOMAS WOLFE D.O. Apr 04, 2021 18:01 YOLANDA MEAD MD Apr 05, 2021 09:29
[2021-04-04] MEDS: PANTOPRAZOLE 40MG TAB (PROTONIX) PO SCH (21:44)
--- NOTE | 2021-04-04 23:58 | CR ---
CONSULTATION DATE: 04/04/2021 REQUESTING PHYSICIAN: Gwen Zhang MD REASON FOR CONSULTATION: Acute kidney injury superimposed on CKD, stage II in this patient with alcohol liver cirrhosis and recent admission with gastrointestinal bleed and hepatic encephalopathy. HISTORY OF PRESENT ILLNESS: History is obtained mostly from chart review as the patient is a poor historian secondary to clinical condition. Mr. Luis Gaspar is a 56-year-old male with a past medical history of alcoholic liver cirrhosis with history of hepatic encephalopathy, hypertension, obstructive sleep apnea, atrial fibrillation, gout and other comorbid conditions mentioned below. The patient was admitted to [facility] on April 01 because of progressive confusion and altered mental status at home. He was brought in by his nephew. In the emergency department, ammonia level was found to be significantly elevated at 146 and the patient was found to have mild lactic acidosis and severe anemia with initial hemoglobin of 5.6. The patient was transfused 5 units of packed red blood cells on this admission and was treated with lactulose for his encephalopathy. He underwent both endoscopy and colonoscopy. Endoscopy did not reveal esophageal varices or active source of bleeding. However, the colonoscopy did show diffuse amount of old blood in the colon and the patient was also treated octreotide drip, PPI, Carafate. While the patient was altered, he did not have any oral intake and did have a NG tube placed and was also continued on his home diuretics of bumetanide and spironolactone and his creatinine on this admission has been fairly stable at around 1.6 and there are no recent labs on the [facility] system for comparison of historical renal function. His most older labs are from 2018 which show a creatinine of around 1.1. Nephrology evaluation was requested for help in the management of diuretics in this patient with liver cirrhosis and worsening kidney function. The patient was seen and examined this morning at the bedside. He was tangential and slow to respond, but was able to answer some questions appropriately and tells me that he cannot remember anything that has happened to him over the course of this hospitalization. PAST MEDICAL HISTORY: 1. Alcohol liver cirrhosis. 2. History of hepatic encephalopathy. 3. Sleep apnea. 4. Obesity. 5. Atrial fibrillation. 6. Gout. 7. Hypertension. 8. Anemia. PAST SURGICAL HISTORY: Left ankle open reduction, internal fixation, cardiac ablation. SOCIAL HISTORY: The patient is a current drinker. Does not smoke or use drugs. 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 FAMILY HISTORY: The patient reports a family history of kidney disease for his father. ALLERGIES: No known drug allergies. REVIEW OF SYSTEMS: Limited secondary to the patient's clinical condition. However, constitutional, he denies fevers. He reports generalized weakness and fatigue. Eyes: Denies visual blurring or tearing. ENT: Denies odynophagia or epistaxis. Complains of dry mouth. Cardiac: Denies chest pains or palpitations. Reports chronic peripheral edema. Respiratory: Reports dyspnea with exertion prior to this hospitalization. Denies cough. Gastrointestinal (GI): Reports cirrhosis. Denies ever having a paracentesis. Reports history of liver biopsy and gastrointestinal bleed. Endocrine: Denies history of diabetes or thyroid problems. Musculoskeletal: Reports leg swelling. Denies myalgias. Reports history of gout and ankle surgery. Hematologic: Reports anemia. Denies anticoagulant use. Neurologic: Report history of encephalopathy in the past. Denies history of seizures. Psychiatric: Denies anxiety or depression. Remainder of review of systems is negative or as per history of present illness. HOME MEDICATIONS: Bumetanide 1 mg by mouth bid, Pepcid 40 mg by mouth every night at bedtime, potassium chloride 10 mEq by mouth daily, spironolactone 25 mg by mouth twice a day. PHYSICAL EXAMINATION: Vital signs: Temperature 97.7, pulse 100, respiratory rate 20, blood pressure 136/83, saturating 92% on room air. Intake yesterday was 1.1 liter, urine output yesterday was 5.2 liters. Net negative 4 liters. Weight in the bed scale today is 151.9 kg. General: The patient was seen lying in the bed awake, alert, oriented to person, to month and year, somewhat slow to respond and foggy. Extraocular muscles are intact. There is mild scleral icterus. Tongue is dry and lips are chapped. Jugular veins are mildly elevated. Heart sounds are regular, S1, S2. There is chronic looking lower extremity edema bilaterally. Lungs show symmetric breath sounds with diminished breath sounds at the bilateral bases. He is comfortable on room air. Abdomen is soft, obese and nontender. Neurologic: The patient is slow to answer even simple questions. Has to think before he replies, but was oriented times three. LABORATORY STUDIES: Sodium 145, potassium 3.2, bicarbonate 34, BUN 25, creatinine 1.6, magnesium 2.4, ammonia yesterday 189, ammonia this morning 37, albumin 2.3, hemoglobin 7.6, platelets 99. Urinalysis shows only 7 RBCs and no protein. MICROBIOLOGY: Urine culture grew Enterococcus faecalis and blood culture grew Staphylococcus cohnii. Chest x-ray done on April 02 shows bilateral pleural effusion. Abdominal ultrasound April 03 shows no obstructive uropathy of the kidneys and there was no evidence for ascites either. Venous Duplex of his legs did not reveal any deep venous thrombosis (DVT). INPATIENT MEDICATIONS: The patient is on bumetanide 1 mg by mouth twice a day. He has received several doses of Zosyn. Ciprofloxacin 500 mg by mouth twice a day, Bacid by mouth daily, lactulose 30 mL by mouth q 6 hours, Flagyl 500 mg by mouth q 8 hours, nadolol 40 mg by mouth daily, rifaximin 550 mg by mouth twice a day, spironolactone 25 mg by mouth twice a day, Carafate 1 gm by mouth twice a day, thiamine 100 mg intramuscular daily. PROBLEMS: 1. Acute kidney injury superimposed on chronic kidney disease (CKD) stage II, versus progression to chronic kidney disease (CKD) stage III. The patient's renal function on this admission has been stable with creatinine mostly of 1.6. Historical labs in [facility] system reviewed and show creatinine of around 1.1 in 2018 and prior to 2018. For a three year period, there is no renal panel seen and it is uncertain whether the patient has had progression of chronic kidney disease over the past three years in the setting of his cirrhosis or whether his current renal function is acute kidney injury. I feel given how stable his renal function is at present that this is most likely his baseline renal function. Over the first two days of this admission, the patient had no ora intake as he was in hepatic encephalopathy with nasogastric tube. However, he was continued on diuretic therapy as he had received aggressive packed red blood cell transfusion. The patient did diurese and renal function has remained stable. I note his sodium has come up from 136 on admission up to 145 today and I am going to hold the diuretics for one day. He has also developed metabolic acidosis with serum bicarbonate up to 34. Renal imaging was negative for any obstruction. Urinalysis was also fairly benign with no protein and only minimal amount of RBC. 2. Alcohol liver cirrhosis with significant hypoalbuminemia. Serum albumin has been in the low 2s. The patient is diuretic dependent. He has chronic edema by the looks of his legs. He takes bumetanide and spironolactone at home. There is no recent echocardiogram seen in the [facility] system and I suggests getting an echocardiogram as well (prior echocardiogram in 2018 showed preserved left ventricular ejection fraction). I am going to hold the patient's bumetanide and spironolactone for one day as he was already diuresed the past two days while he was n.p.o and has had a rise in sodium level by 9 points and mild metabolic alkalosis. 3. Status post hepatic encephalopathy. Ammonia level 189 yesterday and down to 37 today improved with lactulose and rifaximin. 4. Hypokalemia. He is receiving potassium chloride supplementation. I am holding spironolactone for one day because I feel the patient needs a break from diuretics and laboratory studies are showing a contraction alkalosis and increasing sodium level. 5. Acute blood loss anemia. Looks like it is secondary to gastrointestinal (GI) bleed. Colonoscopy report showed diffuse old blood. 5 units of packed red blood cells were transfused. The patient is on Protonix and Carafate. 6. Thrombocytopenia. Most likely it is secondary to cirrhosis. Thank you for involving me in the care of Mr. Gaspar. I will be happy to follow him along with you.
[2021-04-05] VITALS (7 sets, daily range): BP systolic 133–157; BP diastolic 60–80
[2021-04-05] MEDS ORDERED: MORPHINE 2 MG/ML 1ML VIAL (J2270) IV ONE
[2021-04-05] MEDS: LACTULOSE 20 GM/30 ML SYRUP UD PO SCH ×3 (06:19→18:43)
[2021-04-05] MEDS: metroNIDAZOLE (FLAGYL) 500MG TABLET PO SCH ×3 (06:19→20:08)
[2021-04-05] MEDS: CIPROFLOXACIN 500MG TABLET PO SCH ×2 (06:19→18:43)
[2021-04-05] MEDS: SODIUM CHLORIDE 0.9% INJ 10 ML SYR IV SCH ×2 (06:20→18:43)
[2021-04-05 06:48] LABS: HEMATOCRIT 23.9 % (42.0-52.0); HEMOGLOBIN 7.7 g/dl (13.5-17.5); MEAN CORPUSCULAR HEMOGLOBIN 33.3 pg (27.0-33.0); MEAN CORPUSCULAR HGB CONC 32.2 g/dl (32.0-36.5); MEAN CORPUSCULAR VOLUME 103.5 fl (80.0-96.0); PLATELET COUNT, AUTOMATED 106 10^3/uL (150-450); RED BLOOD COUNT 2.31 10^6/uL (4.30-6.10)
[2021-04-05 07:18] LABS: ALBUMIN 2.1 GM/DL (3.2-5.2); BILIRUBIN,TOTAL 4.7 MG/DL (0.2-1.0); CALCIUM LEVEL 8.6 MG/DL (8.5-10.1); CREATININE FOR GFR 1.5 MG/DL (0.70-1.30); GLOMERULAR FILTRATION RATE 51.2 (>56); MAGNESIUM LEVEL 2.1 MG/DL (1.8-2.4); TOTAL PROTEIN 6.9 GM/DL (6.4-8.2)
[2021-04-05] MEDS: PANTOPRAZOLE 40MG TAB (PROTONIX) PO SCH ×2 (08:59→20:08)
[2021-04-05] MEDS: LACTOBACILLUS ACIDOPHILUS CAP (BACID) PO SCH (09:00)
[2021-04-05] MEDS: rifAXIMin 550 MG TAB (XIFAXAN) PO SCH ×2 (09:00→20:13)
[2021-04-05] MEDS: SUCRALFATE 1 GM TAB PO SCH ×2 (09:00→18:43)
[2021-04-05] MEDS: THIAMINE 200MG 2ML VIAL IM SCH (09:00)
[2021-04-05] MEDS: NADOLOL 20MG TABLET PO SCH (09:20)
[2021-04-05] MEDS ORDERED: POTASSIUM CHLORIDE 10MEQ SR TABLET PO ONE ×2 (10:00→20:00)
[2021-04-05] MEDS ORDERED: MAG SULF 1GM/100ML (MAG RUN) 1 GM in IV 1 EA IV ONE (10:00)
[2021-04-05] MEDS: KCL 20MEQ IN 100ML SWI (KRUN) 20 MEQ in IV 1 EA IV SCH ×8 (12:14→21:00)
--- NOTE | 2021-04-05 15:25 | IPNPDOC ---
Date Seen The patient was seen on 04/05/21. Progress Note SUBJECTIVE: Pedrito was seen and examined this morning while lying upright in bed. Similar to yesterday, he is significantly improved from a mentation standpoint, as he is no longer encephalopathic. He did receive a one-time dose of IV morphine prescribed by the overnight team for abdominal pain; on questioning this morning, he reports resolution of his overnight symptoms and is in no abdominal discomfort at this time. Soon before we entered the room, the patient did have an incontinent bowel movement. Patient has had a total of 8 bowel movements in the previous 24-hour midnight to midnight (2 were incontinent); the last few which were characterized as black in color. Patient reports no dysphagia or odynophagia. He denies any current or overnight fever, chills, night sweats, nausea/vomiting/diarrhea, chest pain/chest pressure/palpitations. OBJECTIVE PHYSICAL EXAMINATION: VITAL SIGNS: Please see below. GENERAL: male lying upright in bed. Patient is alert and oriented x3. No acute distress. HEENT: Normocephalic, atraumatic. Wearing eyeglasses. Scant scleral icterus with mild facial jaundice. Mild conjunctival pallor. CARDIOVASCULAR: Regular rate, regular rhythm. Normal S1, S2. 2/6 systolic murmur remains present. Heart sounds again are distant. RESPIRATORY: Mild bibasilar rhonchi, left greater than right; no other significant adventitious breath sounds appreciated. Symmetric chest expansion. Breathing room air. ABDOMINAL: Hypoactive bowel sounds with significantly obese somewhat distended abdomen. Mild tenderness of the epigastric region. No guarding or rigidity appreciated. Significant left-sided lower quadrant abdominal fluid dependency/collection with associated overlying induration of skin. No caput medusa. EXTREMITIES: There remains significant bilateral lower extremity edema with chronic venous stasis changes. There is associated significant induration of skin with some darkening/hyperpigmentation distally. Difficult to appreciate for pedal pulses in setting of significant lymphedema. NEUROLOGICAL: Today orozco a second consecutive day of significantly improved mentation. He is alert and oriented x3 answering all questions and following instructions appropriately. He is less tangential than yesterday's exam. Bilateral resting tremors of upper extremities from yesterday's exam have become less prominent and he has very mild asterixis; also an improvement from yesterday's exam. PSYCHOLOGICAL: Pleasant mood. Affect appears appropriate. LABORATORY DATA, IMAGING STUDIES, MICROBIOLOGY: Please see below. Portable chest x-ray, 04/01/2021 FINDINGS: Lungs: Unremarkable. No consolidation. Pleural spaces: Unremarkable. No pleural effusion. No pneumothorax. Heart/Mediastinum: Unremarkable. No cardiomegaly. Bones/joints: Unremarkable. IMPRESSION: No acute findings. Head CT without contrast, 04/01/2021 FINDINGS: Brain: Mild parenchymal atrophy. No significant white matter disease. Cerebral ventricles: No ventriculomegaly. Paranasal sinuses: Visualized sinuses are unremarkable. No fluid levels. Mastoid air cells: Visualized mastoid air cells are well aerated. Bones/joints: Unremarkable. No acute fracture. Soft tissues: Unremarkable. IMPRESSION: Mild parenchymal atrophy. No significant white matter disease. Portable chest x-ray, 04/02/2021 FINDINGS: Tubes, catheters and devices: NG tube extending into the stomach. Right PICC line extending to the distal superior vena cava. Lungs: The left lung is similar. Increased right base atelectasis. Pleural spaces: Question of small bilateral pleural effusions. Heart/Mediastinum: The heart and mediastinum are unchanged. Bones/joints: Unremarkable. IMPRESSION: 1. NG tube placement since 04/01/2021 extending into the stomach. 2. Interval placement of a right PICC line to the distal superior vena cava. 3. Slightly increased right base atelectasis since the prior study with persistent bilateral pleural effusions. Abdominal complete ultrasound, 04/03/2021 FINDINGS: Exam quality is substantially inhibited by patient body habitus an inability to cyst in position decubitus or suspend respirations. Liver was difficult to penetrate and hyperechoic. This is compatible with fatty infiltration. No focal liver lesion is seen. The common bile duct could not be visualized. There is echogenic sludge in the gallbladder lumen. No stone is seen. The gallbladder wall is somewhat thickened measuring 4.5 mm. No pericholecystic fluid is seen. Scanning in the left upper quadrant demonstrates moderate splenomegaly, 17.8 cm in greatest diameter. No focal splenic lesion is appreciated sonographically. There is no evidence of ascites. Renal cortical echogenicity pattern is normal and contours are smooth. Right renal dimensions are 10.8 x 6.8 x 5.8 cm. The left kidney measures 12.6 x 7.3 x 5.7 cm. IMPRESSION: Scan quality inhibited by patient factors. Evidence of fatty infiltration of the liver. Sludge in the gallbladder. Mildly thickened gallbladder wall. Moderate splenomegaly. No evidence of ascites. Vascular ultrasound, bilateral lower extremities, 04/03/2021 FINDINGS: There is no abnormal echogenic material seen within any of the visualized deep venous structures that would suggest acute thrombosis. Coaptation is unremarkable throughout. Doppler interrogation shows an expected response to respiratory variability and augmentation in the thigh. Compression techniques in the calf were unobtainable. The color flow images show what appears to be a normal vascular pattern throughout the thigh. IMPRESSION: There is no ultrasonographic evidence of deep venous thrombosis involving any of the visualized deep venous structures of the bilateral lower extremity as described above. Due to technical parameters calf vein DVT can not be ruled out. ASSESSMENT AND PLAN: This is a 56-year-old man with notable history of alcoholic liver cirrhosis with varices, HAV positive, obesity, MRSA bacteremia, A. fib, hypertension, LEELA with unknown CPAP status who was admitted in the early hours of 04/02 after being brought in by his nephew due to increased confusion at home. Patient was admitted for acute decompensation of alcoholic liver cirrhosis with encephalopathy and blood loss anemia. Patient subsequently seemed to have a consumptive hematological process going on with anemia, thrombocytopenia, and reticulocytosis: Along with concurrent acute renal failure. From , hemoglobin remained stable with no active bleeding seen on EGD or colonoscopy and patient was thought to ultimately have suffered a GI bleed prior to presentation. #Altered mental status likely secondary to hepatic encephalopathy with h yperammonemia, resolved -Patient had been obtunded on exam both 04/02 and 04/03, but was significantly improved on 04/04 and 04/05 -Ammonia dropped from 189 (04/03) down to 37 (04/04). -Last midnight to midnight 24-hour period, had 8 bowel movements (2 of which were incontinent); lactulose titrated for 5 bowel movements in 24-hour period. -NG tube removed on 04/04; bedside swallow evaluation ordered with patient's improved mentation to ensure low aspiration risk. #Decompensated alcoholic liver cirrhosis with hypoalbuminemia, improving -Overall, patient has had a great improvement in his mentation over the past 36 hours after tolerating oral intake and having multiple bowel movements -Ammonia improved to 37 (04/04) from 189 (04/03) -T bili continues to improve for second consecutive day, now down to 4.7 (zenith was 5.9 on 04/03) -Patient had been n.p.o. in preparation for colonoscopy today; plan to resume lactulose via NG tube when patient returns from scope. -FOBT positive in ED; patient had multiple loose melenic stools. -EGD on 04/02 did not reveal any esophageal varices or active source of bleeding -Colonoscopy on 04/03 showed no active sources of bleeding; significant am ount of old blood in the colon and some possible areas of vascular ectasias, status post 2 clips -Abdominal ultrasound on 04/03 showed fatty liver with mildly thickened gallbladder wall and moderate splenomegaly and no evidence of ascites. -No obstructive biliary process was appreciated and CBD was not seen. -Patient continues to remain hemodynamically stable -Thiamine started on the evening of 04/02 due to concern for possible Warnicke's encephalopathy; vitamin B1 level pending -Zosyn started for SBP prophylaxis on 04/02 by gastroenterology; stopped on day 3, 04/04 -Patient transitioned to metronidazole on 04/04 as well as ciprofloxacin (also covering Enterococcus faecalis positive urine culture) -Day #2 metronidazole as well as day #2 of ciprofloxacin -IV octreotide drip stopped on 04/03 after no active sources of bleeding seen on either EGD or colonoscopy -C/w twice daily PPI, Carafate, probiotic, and low-dose nadolol all started on 04/04 -Diet advanced on 04/05 with improve mentation. -Continue to monitor blood counts and transfuse as needed. -Dr. Lima of gastroenterology consulted. Hospitalist services greatly appreciative of Dr. Lima's involvement and continued recommendations. -Calculated via 04/02 presenting labs: -Meld sodium score of 24 points (14-15% estimated 90-day mortality) -Child Correia score of 13 points/class C (life expectancy 1-3 years); abdominal surgery perioperative mortality risk is 82% #Enterococcus faecalis urinary infection -Abnormal UA (1+ leuk esterase with 1+ urine bacteria) with reflex to culture that grew Enterococcus faecalis -With sensitivity to ciprofloxacin, patient was started on ciprofloxacin on 04/04, today is day #2; also getting metronidazole (day #2) for possible concurrent anaerobic/intra-abdominal infection -Urinary catheter was removed on 10/1 #Possible consumptive hematological process, namely thrombotic thrombocytopenic purpura (TTP) -In the setting of patient's refractory anemia, encephalopathy, acute renal failure, coagulopathy, thrombocytopenia, and hyperbilirubinemia, a process such as TTP was a leading possibility -At this time, this is less likely as patient's hemoglobin has remained stable over the past 48 hours, fibrinogen was WNL, and thrombocytopenia continues to improve -S/p 5 units of blood on 04/02, which only raised hemoglobin from 5.6 to 7.4; this initially was a marked for concern, but patient has seen stability over the past 48 hours. -Abdominal ultrasound 04/03: Significant splenomegaly with no collection of internal bleeding/hematoma -Colonoscopy (04/03) and EGD (04/02) were unremarkable for any definitive bleeding source which pointed to possible consumptive process; but hemoglobin has remained stable -Patient displayed adequate reticulocyte/bone marrow response based on labs showing adequate bone marrow response -Due to splenomegaly on imaging on 04/03, as well as lack of bleeding source on EGD and no internal bleeding seen on abdominal ultrasound, there was a concern for sequestering of blood in the spleen. #Blood loss anemia likely secondary to GI bleed in setting of decompensated liver cirrhosis, stable -Prevailing thought at this time is that patient did suffer a GI bleed prior to presenting to the hospital which required multiple transfusions that finally stabilized hemoglobin -Hemoglobin has remained stable in the mid sevens for the past 48 hours -Had been thought that there may be an underlying consumptive hematological process, but due to stability over the past 2 days on repeat CBC, this is now believed to be less likely. Concern for sequestration of blood and spleen due to splenomegaly (diameter 17.8 cm) -Continuing to monitor blood counts and transfuse as needed -Peripheral smear: Macrocytic anemia with reticulocytosis, moderate thrombocytopenia. No nucleated red blood cells and leukocytes appeared normal in number. #Acute renal failure superimposed on chronic kidney disease stage II vs stage III, improving -Creatinine improved to 1.5 on 04/05; has been stable around 1.6 for the previous 2 days. -The nephrology service has been consulted (Dr. Tomasz Blanco), and per their analysis, patient's prior baseline was last known in 2018 at around 1.1. It is presumed that 1.51.6 is patient's current baseline due to stability over the past 48 hours. -Hospitalist service greatly appreciates the continued recommendations and insights from the nephrology service. -Due to increased sodium from 136 on admission to 145 on 04/04, nephrology service held patient's home bumetanide and spironolactone. -Most likely secondary to acutely decompensated alcoholic liver cirrhosis, with lesser consideration for consumptive hematological process. #History of esophageal varices -Per review of chart, patient has a history of esophageal varices; EGD report from 04/02 did not remark upon any significant varices visualized -Low-dose nadolol started on 04/04 for preventative measures with patient's now tolerance of p.o. -Patient has remained hemodynamically stable since admission #Hypokalemia -Potassium 3.0 on the morning of 04/05; magnesium 2.1 -IV and p.o. supplementation administered with follow-up levels ordered -Of note, nephrology service held spironolactone on 04/05 due to increased sodium from admission -Monitor follow-up metabolic panel #Significantly elevated D-dimer -D-dimer was 25,000. -In the setting of patient's acute renal failure, CTA was deferred and a bilateral lower extremity ultrasound ordered post colonoscopy. -Bilateral lower extremity (04/03) was negative for any visualized deep vein thromboses #Elevated lactate likely secondary to liver cirrhosis -Initial lactic acid was 2.9 with follow-up of 2.1; likely secondary to patient's inability to efficiently clear lactic acid due to liver cirrhosis -Patient received 3 days of Zosyn and was transitioned over to oral metronidazole and ciprofloxacin (Enterococcus faecalis UTI) 04/04 #Splenomegaly -Found on abdominal imaging today -Greatest diameter was measured at approximately 17.8 cm -There is concern that patient may be sequestering blood in his spleen in the setting of the above detailed possibility of consumptive hematological process. #Fatty liver -This was incidentally found on 04/03 abdominal ultrasound. Likely also contributing factor to patient's cirrhosis in addition to alcoholic component. #Chronic lower extremity edema -Patient's last echocardiogram (a [facility]) on file was in July 2017 which was done when patient had MRSA bacteremia. Relevant findings showed EF of 60% with mild mitral regurgitation, mild aortic regurgitation, mild aortic valve sclerosis, mild mitral annular calcification, there were no vegetations, and there was normal left ventricular wall motion and systolic function. -Bilateral lower extremity duplex ultrasound ordered upon return from colonoscopy in the setting of elevated D-dimer -Negative for any visualized DVTs #Deconditioning -PT/OT evaluation ordered on 04/04 in setting of improved mentation. -Review of 04/05 PT evaluation states that patient would benefit from 3-5 more sessions and needs an assist for mobility. Ultimate discharge recommendations is home with services. 3-5 More Sessions #DVT prophylaxis: Teds and sequentials ordered in the setting of blood loss anemia and thrombocytopenia. CODE STATUS: Full code Disposition: Patient has displayed great improvement in mentation over the past 48 hours. Begin working with PT on 04/04 and is pending continued improvement. GME ATTESTATION My faculty preceptor for this patient encounter was physically present during the encounter and was fully available. All aspects of the patient interview, examination, medical decision making process, and medical care plan development were reviewed and approved by the faculty preceptor. The faculty preceptor is aware and concurs with the plan as stated in the body of this note and will attest to such by his/her cosignature. ATTENDING NOTE I personally examined the patient and discussed his improving clinical status, assessment and management with the resident team, and I agree with the above noted thorough documentation of the assessment and plan by the resident. VS, I&O, 24H, Fishbone Vital Signs/I&O Vital Signs Date Time Temp Pulse Resp B/P (MAP) Pulse Ox O2 Delivery O2 Flow Rate FiO2 04/05/21 12:00 97.2 60 18 133/60 (84) 100 Room Air 04/02/21 20:20 10.0 I&O- Last 24 Hours up to 6 AM 04/05/21 06:00 Intake Total 2940 ml Output Total 3000 ml Balance -60 ml Laboratory Data 24H LABS Laboratory Tests 2 04/05/21 06:26: Nucleated Red Blood Cells % (auto) 0.0, Anion Gap 6L, Glomerular Filtration Rate 51.2L, Calcium Level 8.6, Magnesium Level 2.1, Total Bilirubin 4.7H, Aspartate Amino Transf (AST/SGOT) 62H, Alanine Aminotransferase (ALT/SGPT) 34, Alkaline Phosphatase 34L, Total Protein 6.9, Albumin 2.1L, Albumin/Globulin Ratio 0.4 CBC/BMP Laboratory Tests 04/05/21 06:26 Microbiology Microbiology 04/03/21 Blood Culture - Preliminary, Resulted No Growth after 48 hours. All Specime... 04/03/21 Blood Culture - Preliminary, Resulted No Growth after 48 hours. All Specime... 04/02/21 Urine Culture - Final, Complete Enterococcus Faecalis 04/01/21 Blood Culture - Preliminary, Resulted No Growth after 72 hours. All specime... 04/01/21 Blood Culture - Final, Complete Staphylococcus Cohnii TOMAS WOLFE D.O. Apr 05, 2021 15:25 YOLANDA MEAD MD Apr 06, 2021 08:51
[2021-04-05 19:17] LABS: MAGNESIUM LEVEL 2.1 MG/DL (1.8-2.4); POTASSIUM SERUM 3.2 MEQ/L (3.5-5.1)
[2021-04-06] VITALS: BP 130/58
--- NOTE | 2021-04-06 00:16 | REPVR ---
PROCEDURE INFORMATION: Exam: MR Abdomen Without Contrast; Liver Exam date and time: 04/05/2021 10:26 PM Age: 56 years old Clinical indication: Other: Cramping; Prior surgery; Surgery date: Post-operative (0-2 days); Surgery type: Gi bleed 2 days ago; Additional info: Direct hyperbili/alcoholic hepatitis R/O cbd obstruction TECHNIQUE: Imaging protocol: MR Abdomen without contrast. Exam focused on the liver. COMPARISON: CT ABD PELVIS WITH CONTRAST 01/13/2018 1:12 PM FINDINGS: Liver: Cirrhosis and hepatomegaly. Subcentimeter T2 hyperintense lesion the left hepatic lobe Gallbladder and bile ducts: Suboptimal due to failure of the MRCP sequence. No significant intra or extrahepatic biliary ductal dilatation. Pancreas: Normal. Spleen: Splenomegaly. Kidneys and ureters: Amall exophytic left renal cyst. Visualized ureters are unremarkable. Intraperitoneal space: Trace ascites. Vasculature: Suggestion of portal venous hypertension with recanalized paraumbilical vein. IMPRESSION: Limited exam. No significant intra or extrahepatic biliary ductal dilatation. Cirrhosis and evidence of portal venous hypertension. COMMENTS: Consistent with the [employer]'s Incidental Findings Committee white paper (J Am Miguelito Radiol 2018): Any incidental renal lesion less than 1 cm or classified as too small to characterize, or any incidental cystic renal lesion characterized as simple-appearing, is likely benign. No follow-up imaging is recommended for these lesions per consensus recommendations based on imaging criteria. Electronically signed by: Nikos Lange On 04/06/2021 00:15:38 AM
[2021-04-06 04:00] VITALS: BP 113/51
[2021-04-06] MEDS: CIPROFLOXACIN 500MG TABLET PO SCH ×2 (06:23→17:59)
[2021-04-06] MEDS: LACTULOSE 20 GM/30 ML SYRUP UD PO SCH ×3 (06:23→11:48)
[2021-04-06] MEDS: metroNIDAZOLE (FLAGYL) 500MG TABLET PO SCH ×3 (06:24→21:38)
[2021-04-06] MEDS: SODIUM CHLORIDE 0.9% INJ 10 ML SYR IV SCH ×2 (06:24→18:00)
[2021-04-06 06:36] LABS: HEMATOCRIT 22.5 % (42.0-52.0); HEMOGLOBIN 7.3 g/dl (13.5-17.5); MEAN CORPUSCULAR HEMOGLOBIN 33.2 pg (27.0-33.0); MEAN CORPUSCULAR HGB CONC 32.4 g/dl (32.0-36.5); MEAN CORPUSCULAR VOLUME 102.3 fl (80.0-96.0); WHITE BLOOD COUNT 6.2 10^3/uL (4.0-10.0)
[2021-04-06 06:58] LABS: CALCIUM LEVEL 7.9 MG/DL (8.5-10.1); CREATININE FOR GFR 1.51 MG/DL (0.70-1.30); GLOMERULAR FILTRATION RATE 50.8 (>56); MAGNESIUM LEVEL 2.1 MG/DL (1.8-2.4); POTASSIUM SERUM 3.3 MEQ/L (3.5-5.1); TOTAL PROTEIN 6.5 GM/DL (6.4-8.2)
[2021-04-06 07:22] VITALS: BP 118/56
[2021-04-06 07:35] LABS: PLATELET COUNT, AUTOMATED 89 10^3/uL (150-450)
[2021-04-06] MEDS: NADOLOL 20MG TABLET PO SCH (08:54)
[2021-04-06] MEDS: LACTOBACILLUS ACIDOPHILUS CAP (BACID) PO SCH (08:55)
[2021-04-06] MEDS: SUCRALFATE 1 GM TAB PO SCH ×2 (08:55→17:59)
[2021-04-06] MEDS: PANTOPRAZOLE 40MG TAB (PROTONIX) PO SCH ×2 (08:56→21:37)
[2021-04-06] MEDS: THIAMINE 200MG 2ML VIAL IM SCH (08:56)
[2021-04-06] MEDS: rifAXIMin 550 MG TAB (XIFAXAN) PO SCH ×2 (08:56→21:38)
[2021-04-06 09:00] VITALS: BP 113/51
[2021-04-06 11:08] VITALS: BP 112/56
[2021-04-06] MEDS ORDERED: POTASSIUM CHLORIDE 10MEQ SR TABLET PO ONE (11:15)
--- NOTE | 2021-04-06 14:43 | IPNPDOC ---
Text Note Date of Service The patient was seen on 04/06/21. NOTE SUBJECTIVE: -Doing well, no complaitns -He denies any current or overnight fever, chills, night sweats, nausea/vomiting/diarrhea, chest pain/chest pressure/palpitations. OBJECTIVE VITAL SIGNS: Please see below. GENERAL: NAD, obese, alert and oriented x3. HEENT: Normocephalic, atraumatic. Mild scleral icterus and facial jaundice. Mild conjunctival pallor. CARDIOVASCULAR: Regular rate, regular rhythm. Normal S1, S2. 2/6 systolic murmur remains present. RESPIRATORY: Mild bibasilar rhonchi, left greater than right; no other significant adventitious breath sounds appreciated. Symmetric chest expansion. Breathing room air. ABDOMINAL: Obese, soft, NTND. No guarding or rigidity appreciated. Significant left-sided lower quadrant abdominal fluid dependency/collection with associated overlying induration of skin. No caput medusa. EXTREMITIES: Chronic venous stasis changes and lymphedema with hyperkeratotic skin. Otherwise WWP NEUROLOGICAL: Alert and oriented x3 answering all questions and following instructions appropriately. Moving all extremities without asymmetric weakness PSYCHOLOGICAL: Pleasant mood. Affect appears appropriate. LABORATORY DATA, IMAGING STUDIES, MICROBIOLOGY: Reviewed WBC 6.2 Hgb 7.3 Platelets 89 na 142 K 3.3(repleted) BUN 20 Cr 1.51 Portable chest x-ray, 04/01/2021 FINDINGS: Lungs: Unremarkable. No consolidation. Pleural spaces: Unremarkable. No pleural effusion. No pneumothorax. Heart/Mediastinum: Unremarkable. No cardiomegaly. Bones/joints: Unremarkable. IMPRESSION: No acute findings. Head CT without contrast, 04/01/2021 FINDINGS: Brain: Mild parenchymal atrophy. No significant white matter disease. Cerebral ventricles: No ventriculomegaly. Paranasal sinuses: Visualized sinuses are unremarkable. No fluid levels. Mastoid air cells: Visualized mastoid air cells are well aerated. Bones/joints: Unremarkable. No acute fracture. Soft tissues: Unremarkable. IMPRESSION: Mild parenchymal atrophy. No significant white matter disease. Portable chest x-ray, 04/02/2021 FINDINGS: Tubes, catheters and devices: NG tube extending into the stomach. Right PICC line extending to the distal superior vena cava. Lungs: The left lung is similar. Increased right base atelectasis. Pleural spaces: Question of small bilateral pleural effusions. Heart/Mediastinum: The heart and mediastinum are unchanged. Bones/joints: Unremarkable. IMPRESSION: 1. NG tube placement since 04/01/2021 extending into the stomach. 2. Interval placement of a right PICC line to the distal superior vena cava. 3. Slightly increased right base atelectasis since the prior study with persistent bilateral pleural effusions. Abdominal complete ultrasound, 04/03/2021 FINDINGS: Exam quality is substantially inhibited by patient body habitus an inability to cyst in position decubitus or suspend respirations. Liver was difficult to penetrate and hyperechoic. This is compatible with fatty infiltration. No focal liver lesion is seen. The common bile duct could not be visualized. There is echogenic sludge in the gallbladder lumen. No stone is seen. The gallbladder wall is somewhat thickened measuring 4.5 mm. No pericholecystic fluid is seen. Scanning in the left upper quadrant demonstrates moderate splenomegaly, 17.8 cm in greatest diameter. No focal splenic lesion is appreciated sonographically. There is no evidence of ascites. Renal cortical echogenicity pattern is normal and contours are smooth. Right renal dimensions are 10.8 x 6.8 x 5.8 cm. The left kidney measures 12.6 x 7.3 x 5.7 cm. IMPRESSION: Scan quality inhibited by patient factors. Evidence of fatty infiltration of the liver. Sludge in the gallbladder. Mildly thickened gallbladder wall. Moderate splenomegaly. No evidence of ascites. Vascular ultrasound, bilateral lower extremities, 04/03/2021 FINDINGS: There is no abnormal echogenic material seen within any of the visualized deep venous structures that would suggest acute thrombosis. Coaptation is unremarkable throughout. Doppler interrogation shows an expected response to respiratory variability and augmentation in the thigh. Compression techniques in the calf were unobtainable. The color flow images show what appears to be a normal vascular pattern throughout the thigh. IMPRESSION: There is no ultrasonographic evidence of deep venous thrombosis involving any of the visualized deep venous structures of the bilateral lower extremity as described above. Due to technical parameters calf vein DVT can not be ruled out. ASSESSMENT AND PLAN: 56-year-old man with notable history of alcoholic liver cirrhosis with varices, obesity, A. fib, hypertension, LEELA with unknown CPAP status who was admitted in the early hours of 04/02 after being brought in by his nephew due to increased confusion at home and admitted for acute decompensated alcoholic liver cirrhosis with encephalopathy and blood loss anemia from recent GIB presumed upper GI? with anemia, thrombocytopenia, acute on chronic renal failure, encephalopathy with hyperammonemia now improving s/p 5u pRBCs and s/p EGD or colonoscopy showing old blood from recent bleed without current bleeding. #Hepatic encephalopathy with hyperammonemia, resolved -Patient had been obtunded on exam both 04/02 and 04/03, but was significantly improved on 04/04 and 04/05 -Ammonia dropped from 189 (04/03) down to 37 (04/04). #Decompensated alcoholic liver cirrhosis w/ hepatic encephalopathy, GIB, coagulopathy, anemia, thrombocytopenia -Overall, patient has had a great improvement in his mentation over the past 36 hours after tolerating oral intake and having multiple bowel movements -Ammonia improved to 37 (04/04) from 189 (04/03) -T bili continues to improve for second consecutive day, now down to 4.7 (zenith was 5.9 on 04/03) -EGD on 04/02 showed small non-bleeding esophageal varices with old blood -Colonoscopy on 04/03 showed no active sources of bleeding; significant amount of old blood in the colon and some possible areas of vascular ectasias, status post 2 clips -Abdominal ultrasound on 04/03 showed fatty liver with mildly thickened gallbladder wall and moderate splenomegaly and no evidence of ascites. -No obstructive biliary process was appreciated and CBD was not seen. Encephalopathy: multifactorial with hepatic encephalopathy w/ hypoammonemia that has improved, E. fecalis UTI, clinical liver failure and potential Wernicke's -Thiamine started on the evening of 04/02 due to concern for possible Wernicke's encephalopathy; vitamin B1 level pending -Zosyn started for SBP prophylaxis on 04/02 by gastroenterology; stopped on day 3, 04/04 now on cipro/flagyl -Patient transitioned to metronidazole on 04/04 as well as ciprofloxacin (also covering Enterococcus faecalis positive urine culture) -s/p IV octreotide drip stopped on 04/03 after no active sources of bleeding seen on either EGD or colonoscopy -C/w twice daily PPI, Carafate, probiotic, and low-dose nadolol all started on 04/04 -Diet advanced on 04/05 with improve mentation. -Continue to monitor blood counts and transfuse as needed. -Dr. Lima of gastroenterology consulted. Hospitalist services greatly appreciative of Dr. Lima's involvement and continued recommendations. -Meld sodium score of 24 points (14-15% estimated 90-day mortality) -Child Correia score of 13 points/class C (life expectancy 1-3 years); abdominal surgery perioperative mortality risk is 82% #Enterococcus faecalis urinary infection -Abnormal UA (1+ leuk esterase with 1+ urine bacteria) with reflex to culture that grew Enterococcus faecalis -With sensitivity to ciprofloxacin, patient was started on ciprofloxacin on 04/04, today is day #3; also getting metronidazole (day #3) for possible concurrent anaerobic/intra-abdominal infection -Urinary catheter was removed on 04/05 #Possible consumptive hematological process, had been suspecting TTP but given dramatic improvement with management of GIB, infection and stopping alcohol, unlikely to have been TTP -Abdominal ultrasound 04/03: Significant splenomegaly with no collection of internal bleeding/hematoma -Colonoscopy (04/03) and EGD (04/02) were unremarkable for any definitive bleeding source which pointed to possible consumptive process; but hemoglobin has remained stable -Patient displayed adequate reticulocyte/bone marrow response based on labs showing adequate bone marrow response -continue monitoring CBC daily #Blood loss anemia secondary to GI bleed in setting of decompensated liver cirrhosis, now stable -Prevailing thought at this time is that patient did suffer a GI bleed prior to presenting to the hospital which required multiple transfusions that finally stabilized hemoglobin -Hemoglobin has remained stable in the mid sevens -Had been thought that there may be an underlying consumptive hematological process, but due to stability over the past 2 days on repeat CBC, this is now believed to be less likely. -Continuing to monitor blood counts and transfuse as needed -Peripheral smear: Macrocytic anemia with reticulocytosis, moderate thrombocytopenia. No nucleated red blood cells and leukocytes appeared normal in number. #Acute renal failure superimposed on chronic kidney disease stage II vs stage III, improving -Creatinine improved to 1.5 on 04/05; has been stable around 1.6 for the previous 2 days. -The nephrology service has been consulted (Dr. Tomasz Blanco), and per their analysis, patient's prior baseline was last known in 2018 at around 1.1. It is presumed that 1.51.6 is patient's current baseline due to stability over the past 48 hours. -Hospitalist service greatly appreciates the continued recommendations and insights from the nephrology service. -Due to increased sodium from 136 on admission to 145 on 04/04, nephrology service held patient's home bumetanide and spironolactone. #History of esophageal varices -Per review of chart, patient has a history of esophageal varices; EGD report from 04/02 did not remark upon any significant varices visualized -Low-dose nadolol started on 04/04 for preventative measures with patient's now tolerance of p.o. -Patient has remained hemodynamically stable since admission #Hypokalemia: PRN repletion #lactic acidosis: i/s/o GIB, dehydration, infection. Resolved #Splenomegaly -Found on abdominal imaging today -Greatest diameter was measured at approximately 17.8 cm #Fatty liver -This was incidentally found on 04/03 abdominal ultrasound. Likely also contributing factor to patient's cirrhosis in addition to alcoholic component. #Chronic lower extremity edema -Patient's last echocardiogram (a [facility]) on file was in July 2017 which was done when patient had MRSA bacteremia. Relevant findings showed EF of 60% with mild mitral regurgitation, mild aortic regurgitation, mild aortic valve sclerosis, mild mitral annular calcification, there were no vegetations, and there was normal left ventricular wall motion and systolic function. -Bilateral lower extremity duplex ultrasound ordered upon return from colo noscopy in the setting of elevated D-dimer -Negative for any visualized DVTs -Will resume diuretic therapy when appropriate per nephrology #Deconditioning -PT/OT evaluation ordered on 04/04 in setting of improved mentation. -Review of 04/05 PT evaluation states that patient would benefit from 3-5 more sessions and needs an assist for mobility. Ultimate discharge recommendations is home with services. 3-5 More Sessions #DVT prophylaxis: Teds and sequentials ordered in the setting of blood loss anemia and thrombocytopenia. CODE STATUS: Full code VS,Fishbone, I+O VS, Fishbone, I+O Laboratory Tests 04/05/21 18:48 04/06/21 06:15 Vital Signs Date Time Temp Pulse Resp B/P (MAP) Pulse Ox O2 Delivery O2 Flow Rate FiO2 04/06/21 07:22 98.7 71 18 118/56 (76) 97 Room Air 04/02/21 20:20 10.0 I&O- Last 24 Hours up to 6 AM 04/06/21 06:00 Intake Total 1050 ml Output Total 350 ml Balance 700 ml [id number],YOLANDA V. MD Apr 06, 2021 10:58
--- NOTE | 2021-04-06 16:12 | IPN ---
NEPHROLOGY PROGRESS NOTE DATE: 04/06/2021 SUBJECTIVE: Mr. Gaspar is seen this morning at his bedside. He was admitted with altered mentation and severe anemia. He has a known history of alcoholic cirrhosis and was found to have a lot of old blood in his colon at the time of colonoscopy. He did not have any esophageal varices on his upper endoscopy. Since admission his mentation level has improved as his ammonia level has come down to 37 on April 04. It is important to note that on the his ammonia level was 189. The patient is now awake and alert and able to have a normal conversation. OBJECTIVE: PHYSICAL EXAMINATION: VITAL SIGNS: Temperature is 98.3 degrees Fahrenheit, heart rate 72 per minute and respiratory rate 18 per minute. Blood pressure 112/56 mm of mercury and oxygen saturation is 95% on room air. HEENT: His head is atraumatic. NECK: Supple and JVD difficult to be assessed. HEART: Regular. LUNGS: Clear to auscultation. ABDOMEN: Soft and bowel sounds are normal. EXTREMITIES: Without any cyanosis or clubbing. He has chronic stasis changes with thickened skin and bilateral lower extremity edema. NEUROLOGICAL: He is awake and alert at present without any focal deficits. LABORATORY STUDIES: Today's labs show a sodium of 142, potassium 3.3, CO2 32, BUN 20 and creatinine 1.51. Glucose is 98 and calcium is 7.9. Total bilirubin is 4.0, AST 53, ALT 30 and alkaline phosphatase 31. Albumin level is 2.0. His hemoglobin is 7.3 and hematocrit is 22.5. PROBLEMS 1. [id number] kidney disease - kidney function remains unchanged and essentially this is probably his baseline kidney function. 2. Hypokalemia his potassium level is gradually improving with supplement. I feel that the patient should remain on Spironolactone. Currently he is getting 25 mg twice daily. He was also on Bumetanide one mg twice daily at home. His diuretics were held for a couple of days and then now they have been resumed. He is also receiving potassium supplement. 3. Cirrhosis of the liver with altered mentation - The patient has alcoholic cirrhosis with encephalopathy. He is currently on Lactulose and Xifaxan. His mentation has improved and ammonia level has improved significantly. 4. Acute blood loss anemia - The patient has significant anemia and has received a total of 5 units of packed RBCs. I would recommend further transfusion of 2 more units in order to improve his anemia. 5. Chronic lower extremity edema this is most likely multifactorial. The patient should be on moderate fluid restriction and continue with diuretics. I explained to him about the need for fluid restriction.
[2021-04-06 20:00] VITALS: BP 125/58
[2021-04-06] MEDS: BUMETANIDE 1 MG TAB PO SCH (21:37)
[2021-04-06] MEDS: SPIRONOLACTONE 25 MG TAB PO SCH (21:38)
--- NOTE | 2021-04-06 22:10 | ECHO ---
ECHOCARDIOGRAM DATE OF PROCEDURE: 04/04/2021 Age: 56 Gender: Male Height: 175 cm. Weight: 165 kg. REFERRING PROVIDER: Shiv Madison M.D. PATIENT LOCATION: Room 3212. MEASUREMENTS: 2D Measurements: IVS 1.3 cm LV 5.3 cm LVPW 1.3 cm LA 4.8 cm Aorta 3.4 cm Doppler Measurements: Peak velocity across the aortic valve 2.0 m/sec Peak velocity across the LVOT 0.84 m/sec Peak gradient across the aortic valve 70 mmHg Mean gradient across the aortic valve 11 mmHg Maximum tricuspid valve velocity 3.6 m/sec 2D COMMENTS: 1. Normal left ventricular size with mildly increased left ventricular wall thickness. Left ventricular systolic function is normal. Left ventricular ejection fraction is estimated at 60-65%. 2. Mildly enlarged left atrium. Subsequently, the right atrium appeared to be mildly enlarged. Normal right ventricle. 3. The atrial septum appeared to be normal without evidence of defect or shunt. 4. Normal aortic root. 5. No pericardial effusion seen. 6. Mildly calcified aortic valve with normal leaflet excursion. Mildly calcified mitral annulus with normal anterior mitral valve leaflet motion. Normal tricuspid valve and pulmonic valve. The proximal pulmonary artery branches also appeared to be normal. 7. The inferior vena cava was not well visualized. DOPPLER: It detects mild aortic regurgitation, mild mitral regurgitation and mild tricuspid regurgitation. The calculated pulmonary artery systolic pressure, however, varies between 50-60 mmHg. Subjectively, there were features of grade 1 left ventricular diastolic dysfunction. IMPRESSION: 1. Normal global left ventricular systolic function. There are some features of grade 1 left ventricular diastolic dysfunction manifested by abnormal relaxation. 2. Aortic valve sclerosis with mild aortic stenosis and mild aortic regurgitation. 3. Mild mitral annulus calcification with mild mitral regurgitation and a mildly enlarged left atrium. 4. Mild tricuspid regurgitation with moderate pulmonary hypertension.
[2021-04-07] VITALS (13 sets, daily range): BP systolic 108–127; BP diastolic 50–58
[2021-04-07 05:56] LABS: HEMATOCRIT 21.6 % (42.0-52.0); MEAN CORPUSCULAR HGB CONC 32.4 g/dl (32.0-36.5); MEAN CORPUSCULAR VOLUME 101.9 fl (80.0-96.0); RED BLOOD COUNT 2.12 10^6/uL (4.30-6.10); WHITE BLOOD COUNT 6.4 10^3/uL (4.0-10.0)
[2021-04-07 06:06] LABS: PLATELET COUNT, AUTOMATED 86 10^3/uL (150-450)
[2021-04-07 06:26] LABS: ALBUMIN 1.9 GM/DL (3.2-5.2); BILIRUBIN,TOTAL 3.3 MG/DL (0.2-1.0); CALCIUM LEVEL 7.8 MG/DL (8.5-10.1); CREATININE FOR GFR 1.58 MG/DL (0.70-1.30); GLOMERULAR FILTRATION RATE 48.2 (>56); POTASSIUM SERUM 3.4 MEQ/L (3.5-5.1); TOTAL PROTEIN 6.5 GM/DL (6.4-8.2)
[2021-04-07] MEDS: metroNIDAZOLE (FLAGYL) 500MG TABLET PO SCH ×2 (06:33→15:02)
[2021-04-07] MEDS: SODIUM CHLORIDE 0.9% INJ 10 ML SYR IV SCH (06:33)
[2021-04-07] MEDS: CIPROFLOXACIN 500MG TABLET PO SCH ×2 (06:33→17:21)
[2021-04-07] MEDS ORDERED: LACTULOSE 20 GM/30 ML SYRUP UD PO SCH (09:00)
[2021-04-07] MEDS: rifAXIMin 550 MG TAB (XIFAXAN) PO SCH (09:19)
[2021-04-07] MEDS: PANTOPRAZOLE 40MG TAB (PROTONIX) PO SCH (09:19)
[2021-04-07] MEDS: LACTOBACILLUS ACIDOPHILUS CAP (BACID) PO SCH (09:20)
[2021-04-07] MEDS: SUCRALFATE 1 GM TAB PO SCH ×2 (09:20→17:20)
[2021-04-07] MEDS: NADOLOL 20MG TABLET PO SCH (09:21)
[2021-04-07] MEDS: THIAMINE 200MG 2ML VIAL IM SCH (09:22)
[2021-04-07] MEDS: BUMETANIDE 1 MG TAB PO SCH ×2 (09:23→17:22)
[2021-04-07] MEDS: SPIRONOLACTONE 50 MG TAB PO SCH ×2 (09:29→17:21)
[2021-04-07] MEDS ORDERED: POTASSIUM CHLORIDE 10MEQ SR TABLET PO ONE (09:45)
--- NOTE | 2021-04-07 10:08 | DS.PDOC ---
Discharge Summary General Date of Admission Apr 01, 2021 at 18:59 Date of Discharge 04/07/2021 Attending Physician: YOLANDA MEAD MD Specialist/Consultants Involve: SOPHIA LIMA MD Specialist/Consultants Involve Dr. Halima Blanco Discharge Summary PROCEDURES PERFORMED DURING STAY: EGD on 04/02 and colonoscopy ADMITTING DIAGNOSES: Encephalopathy Anemia, GIB DISCHARGE DIAGNOSES: Decompensated alcohol liver cirrhosis w/ acute liver failure w/ hepatic encephalopathy, coagulopathy, thrombocytopenia, acute on chronic anemia Hepatic encephalopathy Acute GIB likely recent UGIB Small nonbleeding esophageal varices Acute on chronic anemia, with acute blood loss Metabolic encephalopathy Thrombocytopenia MICHEL Hypokalemia Hypomagnesemia UTI Sleep apnea. Morbid obesity. History of Atrial fibrillation. Gout. Hypertension HFpEF COMPLICATIONS/CHIEF COMPLAINT: Blood Loss Anemia/Gi Bleed/Hepatic Encephalopathy. HISTORY OF PRESENT ILLNESS: 56-year-old M with a past medical history of alcoholic liver cirrhosis with history of hepatic encephalopathy, hypertension, obstructive sleep apnea, chart history of prior atrial fibrillation, gout and and morbid obesity with ongoing excessive alcohol consumption who was brought to the [facility] ED on April 01 for progressive confusion and altered mental status at home. He was brought in by his nephew. HOSPITAL COURSE: In the emergency department, ammonia level was found to be significantly elevated at 146 and the patient was found to have mild lactic acidosis and severe anemia with initial hemoglobin of 5.6. The patient was admitted to medicine obtunded and NGT was transfused 5 units of packed red blood cells on this admission and NGT was placed and lactulose begun for his encephalopathy. He underwent both endoscopy and colonoscopy. Endoscopy that he had on 04/02 did not reveal bleeding esophageal varices or active source of bleeding, while the colonoscopy that was done on 04/03 did show diffuse amount of old blood in the colon. He was placed on an empiric octreotide drip, IV PPI, Carafate. He was also started on empiric pip/tazo for GI coverage, while BCx were negative and UCx eventually grew E.fecalis. He also had coagulopathy with elevated INR, mildly low fibrinogen and elevated Ddimer in addition to significant hyperbilirubinemia with some concern for hemolysis. He ultimately improved with stabilization of Hgb to ~7 and ammonia downtrended with eventual improvement in mental status. Antibiotics were transitioned to cipro/flagyl and he completed 6d of antibiotics while inpatient. With regard to the MICHEL, given the decompensated state at presentation, diuretic therapy was held, and renal function improved after blood transfusion and fluids and nephrology has now restarted him on his home bumex and increased his aldactone to 50mg. He also had significant electrolyte abnormalities that were corrected most notably persistent hypokalemia for which i will discharge him on 20mgeq daily with close PCP and nephrology follow up now that his aldactone has been increased. He is to establish care with Dr. Lima in GI clinic for his liver disease adn Dr. Blanco in nephrology for his CKD. He will also follow up with his PCP shortly within 7d. We have discussed extensively and repeatedly the importance of alcohol abstinence given the degree of illness he just had and liver injury that triggered multiorgan failure and critical illness. He expressed understanding. In the meantime, I am now transfusing him 2u of pRBCs given that his hgb is at 7 before home discharge. He otherwise has been stably at hgb 7 without any further signs of bleeding. DISCHARGE MEDICATIONS: Please see below. ALLERGIES: Please see below. PHYSICAL EXAMINATION ON DISCHARGE: VITAL SIGNS: Please see below. GENERAL: NAD, obese, alert and oriented x3. HEENT: Normocephalic, atraumatic. Mild scleral icterus and facial jaundice. Mild conjunctival pallor. CARDIOVASCULAR: Regular rate, regular rhythm. Normal S1, S2. 2/6 systolic murmur remains present. RESPIRATORY: CTAB. Symmetric chest expansion. Breathing comfortably on room air. ABDOMINAL: Obese, soft, NTND. No guarding or rigidity appreciated. No caput medusa. EXTREMITIES: Chronic venous stasis changes and lymphedema with hyperkeratotic skin. Otherwise WWP NEUROLOGICAL: Alert and oriented x3 answering all questions and following instructions appropriately. Moving all extremities without asymmetric weakness PSYCHOLOGICAL: Pleasant mood. Affect appears appropriate. LABORATORY DATA: Please see below. IMAGING: Portable chest x-ray, 04/01/2021 FINDINGS: Lungs: Unremarkable. No consolidation. Pleural spaces: Unremarkable. No pleural effusion. No pneumothorax. Heart/Mediastinum: Unremarkable. No cardiomegaly. Bones/joints: Unremarkable. IMPRESSION: No acute findings. Head CT without contrast, 04/01/2021 FINDINGS: Brain: Mild parenchymal atrophy. No significant white matter disease. Cerebral ventricles: No ventriculomegaly. Paranasal sinuses: Visualized sinuses are unremarkable. No fluid levels. Mastoid air cells: Visualized mastoid air cells are well aerated. Bones/joints: Unremarkable. No acute fracture. Soft tissues: Unremarkable. IMPRESSION: Mild parenchymal atrophy. No significant white matter disease. Portable chest x-ray, 04/02/2021 FINDINGS: Tubes, catheters and devices: NG tube extending into the stomach. Right PICC line extending to the distal superior vena cava. Lungs: The left lung is similar. Increased right base atelectasis. Pleural spaces: Question of small bilateral pleural effusions. Heart/Mediastinum: The heart and mediastinum are unchanged. Bones/joints: Unremarkable. IMPRESSION: 1. NG tube placement since 04/01/2021 extending into the stomach. 2. Interval placement of a right PICC line to the distal superior vena cava. 3. Slightly increased right base atelectasis since the prior study with persistent bilateral pleural effusions. Abdominal complete ultrasound, 04/03/2021 FINDINGS: Exam quality is substantially inhibited by patient body habitus an inability to cyst in position decubitus or suspend respirations. Liver was difficult to penetrate and hyperechoic. This is compatible with fatty infiltration. No focal liver lesion is seen. The common bile duct could not be visualized. There is echogenic sludge in the gallbladder lumen. No stone is seen. The gallbladder wall is somewhat thickened measuring 4.5 mm. No pericholecystic fluid is seen. Scanning in the left upper quadrant demonstrates moderate splenomegaly, 17.8 cm in greatest diameter. No focal splenic lesion is appreciated sonographically. There is no evidence of ascites. Renal cortical echogenicity pattern is normal and contours are smooth. Right renal dimensions are 10.8 x 6.8 x 5.8 cm. The left kidney measures 12.6 x 7.3 x 5.7 cm. IMPRESSION: Scan quality inhibited by patient factors. Evidence of fatty infiltration of the liver. Sludge in the gallbladder. Mildly thickened gallbladder wall. Moderate splenomegaly. No evidence of ascites. Vascular ultrasound, bilateral lower extremities, 04/03/2021 FINDINGS: There is no abnormal echogenic material seen within any of the visualized deep venous structures that would suggest acute thrombosis. Coaptation is unremarkable throughout. Doppler interrogation shows an expected response to respiratory variability and augmentation in the thigh. Compression techniques in the calf were unobtainable. The color flow images show what appears to be a normal vascular pattern throughout the thigh. IMPRESSION: There is no ultrasonographic evidence of deep venous thrombosis involving any of the visualized deep venous structures of the bilateral lower extremity as described above. Due to technical parameters calf vein DVT can not be ruled out. MRI abdomen: 04/05/2021: Liver: Cirrhosis and hepatomegaly. Subcentimeter T2 hyperintense lesion the left hepatic lobe Gallbladder and bile ducts: Suboptimal due to failure of the MRCP sequence. No significant intra or extrahepatic biliary ductal dilatation. Pancreas: Normal. Spleen: Splenomegaly. Kidneys and ureters: Amall exophytic left renal cyst. Visualized ureters are unremarkable. Intraperitoneal space: Trace ascites. Vasculature: Suggestion of portal venous hypertension with recanalized paraumbilical vein. IMPRESSION: Limited exam. No significant intra or extrahepatic biliary ductal dilatation. Cirrhosis and evidence of portal venous hypertension. TTE: MEASUREMENTS: 2D Measurements: IVS 1.3 cm LV 5.3 cm LVPW 1.3 cm LA 4.8 cm Aorta 3.4 cm Doppler Measurements: Peak velocity across the aortic valve 2.0 m/sec Peak velocity across the LVOT 0.84 m/sec Peak gradient across the aortic valve 70 mmHg Mean gradient across the aortic valve 11 mmHg Maximum tricuspid valve velocity 3.6 m/sec 2D COMMENTS: 1. Normal left ventricular size with mildly increased left ventricular wall thickness. Left ventricular systolic function is normal. Left ventricular ejection fraction is estimated at 60-65%. 2. Mildly enlarged left atrium. Subsequently, the right atrium appeared to be mildly enlarged. Normal right ventricle. 3. The atrial septum appeared to be normal without evidence of defect or shunt. 4. Normal aortic root. 5. No pericardial effusion seen. 6. Mildly calcified aortic valve with normal leaflet excursion. Mildly calcified mitral annulus with normal anterior mitral valve leaflet motion. Normal tricuspid valve and pulmonic valve. The proximal pulmonary artery branches also appeared to be normal. 7. The inferior vena cava was not well visualized. DOPPLER: It detects mild aortic regurgitation, mild mitral regurgitation and mild tricuspid regurgitation. The calculated pulmonary artery systolic pressure, however, varies between 50-60 mmHg. Subjectively, there were features of grade 1 left ventricular diastolic dysfunction. IMPRESSION: 1. Normal global left ventricular systolic function. There are some features of grade 1 left ventricular diastolic dysfunction manifested by abnormal relaxation. 2. Aortic valve sclerosis with mild aortic stenosis and mild aortic regurgitation. 3. Mild mitral annulus calcification with mild mitral regurgitation and a mildly enlarged left atrium. 9/28: EGD: Findings: Small nonbleeding varices were found in the lower third of the esophagus. The entire examined stomach was normal. The examined duodenum was normal. Clear fluid was found in the esophagus,stomach and duodenum. (No bleeding source determined on this exam). Impression: - Small/minimal nonbleeding esophageal varices. - Normal stomach. - Normal examined duodenum. - Clear fluid throughout. - (No bleeding source determined on this exam). - No specimens collected. Recommendation: - Perform a colonoscopy tomorrow. - (Pt is confused/not cooperative--NG tube was placed for colon prep today.) 04/03: Colonoscopy: The perianal and digital rectal examinations were normal. (EXAM: Complete, PREP: Suboptimal) The terminal ileum appeared normal. Hematin (altered blood/qirsow-[id number] material) was found in the entire colon. Two small localized angioectasias with stigmata of recent bleeding were found in the ascending colon and in the cecum. For hemostasis, four hemostatic clips were successfully placed. There was no bleeding at the end of the procedure. A few small-mouthed diverticula were found in the sigmoid colon. There was no evidence of diverticular bleeding. Non-bleeding internal hemorrhoids were found during retroflexion. The hemorrhoids were moderate. Impression: - (EXAM: Complete, PREP: Suboptimal) - The examined portion of the ileum was normal. (fluid is clear yellow in terminal ileum, suggestive of colonic source for bleed) - Old black blood in the entire examined colon from cecum to rectum--extensive lavage. (prep improved but still quite poor) - Two 2-3 mm non bleeding red spots or tiny angioectasias in cecum/proximal ascending colon (dubious significance). Clips were placed. - Mild diverticulosis in the sigmoid colon. There was no evidence of diverticular bleeding. - Non-bleeding internal hemorrhoids. - No specimens collected. Only old blood is seen, there is no active bleeding at this time. The bleeding was likely from somewhere in the cecum/ascending colon. The two small red spots in the cecum/ascending colon may possibly represent tiny vascular ectasias, and were clipped prophylactically. PROGNOSIS: Good with abstinence from alcohol ACTIVITY: As tolerated DIET: 2g sodium DISCHARGE PLAN: Home w/ close PCP, nephrology and GI follow up DISPOSITION: Home DISCHARGE INSTRUCTIONS: Home w/ close PCP, nephrology and GI follow up. ITEMS TO FOLLOWUP ON ON OUTPATIENT: Liver disease CKD Alcohol cessation Obesity Anemia DISCHARGE CONDITION: Stable TIME SPENT ON DISCHARGE: 68 minutes. Vital Signs/I&Os Vital Signs Date Time Temp Pulse Resp B/P (MAP) Pulse Ox O2 Delivery O2 Flow Rate FiO2 04/07/21 08:00 97.8 81 18 108/53 (71) 97 Room Air 04/02/21 20:20 10.0 I&O- Last 24 Hours up to 6 AM 04/07/21 06:00 Intake Total 1320 ml Output Total 0 ml Balance 1320 ml Laboratory Data Labs 24H Laboratory Tests 2 04/07/21 05:42: Nucleated Red Blood Cells % (auto) 0.0, Anion Gap 7L, Glomerular Filtration Rate 48.2L, Calcium Level 7.8L, Total Bilirubin 3.3H, Aspartate Amino Transf (AST/SGOT) 48H, Alanine Aminotransferase (ALT/SGPT) 29, Alkaline Phosphatase 34L, Total Protein 6.5, Albumin 1.9L, Albumin/Globulin Ratio 0.4 CBC/BMP Laboratory Tests 04/07/21 05:42 Microbiology Microbiology 04/03/21 Blood Culture - Preliminary, Resulted No Growth after 72 hours. All specime... 04/03/21 Blood Culture - Preliminary, Resulted No Growth after 72 hours. All specime... 04/02/21 Urine Culture - Final, Complete Enterococcus Faecalis 04/01/21 Blood Culture - Final, Complete NO GROWTH AFTER 5 DAYS 04/01/21 Blood Culture - Final, Complete Staphylococcus Cohnii Discharge Medications Scheduled Bumetanide (Bumetanide) 1 Mg Tablet, 1 MG PO BID, (Reported) Famotidine (Famotidine) 40 Mg Tablet, 40 MG PO QHS, (Reported) Potassium Chloride (Potassium Chloride) 10 Meq Tab.er.prt, 10 MEQ PO DAILY, (Reported) Spironolactone (Spironolactone) 25 Mg Tablet, 25 MG PO BID, (Reported) Allergies Coded Allergies: No Known Allergies (Unverified , 02/05/13) YOLANDA MEAD MD Apr 07, 2021 10:08
[2021-04-07] MEDS ORDERED: XIFA550T PO (10:15)
[2021-04-07] MEDS ORDERED: FOLI1TAB11 PO (10:15)
[2021-04-07] MEDS ORDERED: THIA100TA PO (10:15)
[2021-04-07] MEDS ORDERED: ALDA50TA2 PO (10:15)
[2021-04-07] MEDS ORDERED: LACT20EL PO (10:15)
[2021-04-07] MEDS ORDERED: PANT40TA29 PO (10:15)
[2021-04-07] MEDS ORDERED: NADO20TA PO (10:15)
[2021-04-07] MEDS ORDERED: SUCR1TA PO (10:15)
[2021-04-07] MEDS ORDERED: RISATAB3 PO (10:15)
--- NOTE | 2021-04-07 17:50 | IPN ---
NEPHROLOGY PROGRESS NOTE DATE: 04/07/2021 SUBJECTIVE: Mr. Gaspar is seen this morning at his bedside. He is feeling well and denies any complaints at present. He still has chronic lower extremity edema. He denies any nausea or vomiting. He has no fever or chills. His mentation has remained stable. OBJECTIVE: PHYSICAL EXAMINATION: VITAL SIGNS: Temperature 97.2 degrees Fahrenheit, heart rate 78 per minute, respiratory rate 16 per minute, blood pressure 123/58 mm of mercury and oxygen saturation is 99% on room air. INTAKE AND OUTPUT: His intake and output records are incomplete and he weighed 152 kg today. HEENT: His head is atraumatic. There is no oral thrush or ulcers. NECK: Supple and JVD is difficult to be assessed. HEART: Sounds are regular with a systolic murmur grade 2/6. LUNGS: Slightly diminished breath sounds at the bases. ABDOMEN: Obese and nontender. Bowel sounds are normal. EXTREMITIES: Without any cyanosis or clubbing. Chronic stasis changes on the lower extremities and chronic edema is unchanged. NEUROLOGICAL: He is awake, alert and without any focal deficits. LABORATORY STUDIES: Today's labs show a WBC count of 6.4, hemoglobin 7.0 and hematocrit 21.6, platelet count 86,000. Sodium 139 and potassium 3.4. BUN 19 and creatinine 1.58. Glucose 97 and calcium 7.8. PROBLEMS: 1. [id number] kidney disease - kidney function remains at about baseline. I feel that most likely this is his chronic baseline and not expected to have any significant improvement. 2. Hypokalemia gradually improving. The patient has been on Spironolactone along with Bumetanide. He also has received potassium chloride supplement. I am increasing his Spironolactone dose to 50 mg twice daily. 3. Hepatic encephalopathy with cirrhosis of the liver - The patient has alcohol cirrhosis and had hepatic encephalopathy on admission which has now improved. He remains on Lactulose. He clearly understands that avoiding alcohol is of prime importance for him in order to prevent further problems. 4. Anemia - The patient has acute blood loss anemia and has been transfused 5 units of packed RBCs since admission. Two more units can be transfused today. If there is a plan for discharge, he will need further workup in follow up as an outpatient. 5. Lower extremity edema this is a chronic issue and the patient also has cirrhosis of the liver with hypoalbuminemia. He has been on Bumetanide and Spironolactone at home, even prior to admission. He should continue the same dose of Bumetanide and I have increased his Spironolactone dose to 50 mg twice daily. The patient understands that he needs to follow a low sodium diet and moderate fluid restriction. 6. Disposition from a renal standpoint, the patient can be followed up in the outpatient office once he gets discharged.
== END 2021-04-07 18:51 | disposition home health service (06) | DRG 280 ==
LOC: M ED 18:58 → M ED INP 18:59 → M PCU 04-02 01:34
PROVIDERS: ADMIT Family Medicine; ATTEND Internal Medicine
PROC: 30233N1 Transfusion of Nonautologous Red Blood Cells into Peripheral Vein, Percutaneous Approach (ICD-10-PCS; 2021-04-01)
PROC: 02HV33Z Insertion of Infusion Device into Superior Vena Cava, Percutaneous Approach (ICD-10-PCS; 2021-04-02)
PROC: 0DJ08ZZ Inspection of Upper Intestinal Tract, Via Natural or Artificial Opening Endoscopic (ICD-10-PCS; principal; 2021-04-02 09:31)
PROC: 0W3P8ZZ Control Bleeding in Gastrointestinal Tract, Via Natural or Artificial Opening Endoscopic (ICD-10-PCS; 2021-04-03)
DX: K70.30 Alcoholic cirrhosis of liver without ascites (principal); G93.41 Metabolic encephalopathy; E87.2 Acidosis; K31.811 Angiodysplasia of stomach and duodenum with bleeding; I13.0 Hypertensive heart and chronic kidney disease with heart failure and stage 1 through stage 4 chronic kidney disease, or unspecified chronic kidney disease; D69.59 Other secondary thrombocytopenia; D62 Acute posthemorrhagic anemia; I50.32 Chronic diastolic (congestive) heart failure; I85.10 Secondary esophageal varices without bleeding; N18.30 Chronic kidney disease, stage 3 unspecified; R16.1 Splenomegaly, not elsewhere classified; Z68.43 Body mass index [BMI] 50.0-59.9, adult; E66.01 Morbid (severe) obesity due to excess calories; I48.0 Paroxysmal atrial fibrillation; K72.00 Acute and subacute hepatic failure without coma; K70.10 Alcoholic hepatitis without ascites; B95.2 Enterococcus as the cause of diseases classified elsewhere; N39.0 Urinary tract infection, site not specified; E51.2 Wernicke's encephalopathy; E87.6 Hypokalemia; K57.30 Diverticulosis of large intestine without perforation or abscess without bleeding; K64.8 Other hemorrhoids; M10.9 Gout, unspecified; G47.33 Obstructive sleep apnea (adult) (pediatric); Z20.822 Contact with and (suspected) exposure to COVID-19; Z79.899 Other long term (current) drug therapy

== ENCOUNTER → 2021-04-18 | Outpatient (REF) | payer OTHER ==
[~2021-04-18] MED LIST changes: +ALDA50TA2 PO; +BUME1TAB3 PO; +FAMO40TA3 PO; +FOLI1TAB11 PO; +LACT20EL PO; +NADO20TA PO; +PANT40TA29 PO; +POTA10TA16 PO; +RISATAB3 PO; +SPIR-10 PO; +SUCR1TA PO; +THIA100TA PO; +XIFA550T PO
[2021-04-18 13:51] LABS: HEMATOCRIT 30.2 % (42.0-52.0); HEMOGLOBIN 9.7 g/dl (13.5-17.5); MEAN CORPUSCULAR HEMOGLOBIN 32.9 pg (27.0-33.0); MEAN CORPUSCULAR HGB CONC 32.1 g/dl (32.0-36.5); MEAN CORPUSCULAR VOLUME 102.4 fl (80.0-96.0); PLATELET COUNT, AUTOMATED 123 10^3/uL (150-450); RED BLOOD COUNT 2.95 10^6/uL (4.30-6.10); WHITE BLOOD COUNT 5.6 10^3/uL (4.0-10.0)
[2021-04-18 14:28] LABS: ALBUMIN 2.2 GM/DL (3.2-5.2); BILIRUBIN,TOTAL 3.1 MG/DL (0.2-1.0); CALCIUM LEVEL 9.2 MG/DL (8.5-10.1); CREATININE FOR GFR 1.49 MG/DL (0.70-1.30); GLOMERULAR FILTRATION RATE 51.6 (>56)
== END ==
LOC: M LAB REF 13:09
PROVIDERS: ATTEND Physician Assistant
DX: K29.61 Other gastritis with bleeding (principal); R16.2 Hepatomegaly with splenomegaly, not elsewhere classified; K70.30 Alcoholic cirrhosis of liver without ascites; I48.0 Paroxysmal atrial fibrillation

== ENCOUNTER → 2021-04-18 | Outpatient (REF) | payer OTHER | LOC: M LAB REF 14:55 | PROVIDERS: ATTEND Internal Medicine Nephrology | DX: E83.42 Hypomagnesemia (principal) ==

== ENCOUNTER → 2021-05-22 | Outpatient (CLI) | payer OTHER ==
[~2021-05-22] MED LIST changes: +LIDOCAINE 1% MDV 20ML VIAL As Ordered ONE
[2021-05-22 13:04] LABS: BASO % 0.6 % (0.0-1.0); EOS # 0.2 10^3/uL (0.0-0.5); EOS % 3.4 % (0.0-3.0); HEMATOCRIT 25.6 % (42.0-52.0); HEMOGLOBIN 8.6 g/dl (13.5-17.5); LYMPH # 0.8 10^3/uL (1.5-5.0); LYMPH % 15.2 % (24.0-44.0); MEAN CORPUSCULAR HEMOGLOBIN 33.1 pg (27.0-33.0); MEAN CORPUSCULAR HGB CONC 33.6 g/dl (32.0-36.5); MEAN CORPUSCULAR VOLUME 98.5 fl (80.0-96.0); MONO # 0.6 10^3/uL (0.0-0.8); MONO % 11.6 % (2.0-8.0); NEUTROPHILS # 3.4 10^3/uL (1.5-8.5); NEUTROPHILS % 68.8 % (36.0-66.0)
[2021-05-22 13:06] LABS: PLATELET COUNT, AUTOMATED 92 10^3/uL (150-450)
[2021-05-22 14:20] VITALS: BP 131/60
--- NOTE | 2021-05-22 16:26 | REP ---
INDICATION: THROMBOCYTOPENIA. COMPARISON: None. TECHNIQUE: The procedure was procedure performed under the direct supervision of Dr. Sandhu. The risks and benefits of the procedure were explained to the patient and informed consent was obtained. The right iliac bone was localized using CT guidance. The skin was prepped and draped in a sterile fashion. 9 mL of 1% lidocaine was used as local anesthetic. Using CT guidance an 11 gauge bone marrow biopsy system was inserted. 10 mL of marrow fluid was withdrawn. One core biopsy sample was then obtained. Estimated blood loss: Less than 1 mL The patient tolerated the procedure well and there were no immediate complications. After the appropriate amount to monitored convalescence the patient was discharged from the department. FINDINGS: None IMPRESSION: CT-guided right iliac bone marrow biopsy. <Electronically signed by Ermias Lombardi > 05/22/21 [id number] <Electronically signed by Quan Sandhu > 05/22/21 [id number]
== END ==
LOC: M IRPRO 12:10
PROVIDERS: ATTEND Internal Medicine Medical Oncology
DX: D69.6 Thrombocytopenia, unspecified (principal)

== ENCOUNTER → 2021-07-17 | Outpatient (CLI) | payer OTHER ==
[~2021-07-17] MED LIST changes: -LIDOCAINE 1% MDV 20ML VIAL As Ordered ONE; -LISI-898 PO; +LISI5TAB11 PO; +POTA-149 PO; -POTA10TA16 PO
[2021-07-17 18:08] LABS: HEMATOCRIT 29.3 % (42.0-52.0); HEMOGLOBIN 9.7 g/dl (13.5-17.5); MEAN CORPUSCULAR HEMOGLOBIN 32.7 pg (27.0-33.0); MEAN CORPUSCULAR HGB CONC 33.1 g/dl (32.0-36.5); MEAN CORPUSCULAR VOLUME 98.7 fl (80.0-96.0); PLATELET COUNT, AUTOMATED 130 10^3/uL (150-450); RED BLOOD COUNT 2.97 10^6/uL (4.30-6.10); WHITE BLOOD COUNT 5.6 10^3/uL (4.0-10.0)
[2021-07-17 18:29] LABS: ALBUMIN 3.1 GM/DL (3.2-5.2); BILIRUBIN,TOTAL 2.5 MG/DL (0.2-1.0); CALCIUM LEVEL 9.8 MG/DL (8.5-10.1); CHOLESTEROL RISK RATIO 2.608 (<5); CREATININE FOR GFR 1.69 MG/DL (0.70-1.30); GLOMERULAR FILTRATION RATE 44.6 (>56); PROSTATIC SPECIFIC AG MONITOR 0.56 NG/ML (< 4.00); THYROID STIMULATING HORMONE 2.14 uIU/ML (0.358-3.740); TOTAL PROTEIN 8.2 GM/DL (6.4-8.2)
[2021-07-17 18:48] LABS: TOTAL 25(OH) VITAMIN D 29.9 NG/ML (30.0-100.0)
[2021-07-17 18:49] LABS: HEMOGLOBIN A1c 5.6 %
[2021-07-17 19:21] LABS: APPEARANCE, URINE HAZY (CLEAR); BACTERIA, URINE AUTO NEGATIVE (NEGATIVE); BILIRUBIN, URINE AUTO NEGATIVE (NEGATIVE); BLOOD, URINE BLOOD 2+ (NEGATIVE); COLOR, URINE YELLOW (YELLOW); GLUCOSE, URINE (UA) AUTO NEGATIVE (NEGATIVE); KETONE, URINE AUTO NEGATIVE (NEGATIVE); LEUKOCYTE ESTERASE, URINE AUTO 2+ (NEGATIVE); NITRITE, URINE AUTO NEGATIVE (NEGATIVE); PROTEIN, URINE AUTO NEGATIVE (NEGATIVE); RBC, URINE AUTO 5 /HPF (0-3); SPECIFIC GRAVITY URINE AUTO 1.013 (1.002-1.035); SQUAMOUS EPITHELIAL CELL UR AU 3 /HPF (0-6); UROBILINOGEN, URINE AUTO 0.2 mg/dL (0.0-2.0); WBC, URINE AUTO 39 /HPF (0-3)
== END ==
LOC: M PLALAB 12:48
PROVIDERS: ATTEND Physician Assistant
DX: E78.5 Hyperlipidemia, unspecified (principal); I10 Essential (primary) hypertension; E11.9 Type 2 diabetes mellitus without complications

== ENCOUNTER → 2021-07-31 | Outpatient (REF) | payer OTHER | LOC: M LAB REF 17:02 | PROVIDERS: ATTEND Internal Medicine Nephrology | DX: K70.30 Alcoholic cirrhosis of liver without ascites (principal); E83.42 Hypomagnesemia ==

== ENCOUNTER 2021-08-06 14:23 | Outpatient (CLI) | payer OTHER ==
[~2021-08-06] VITALS: Ht 180.3 cm; Wt 136.1 kg
[~2021-08-06 14:23] MED LIST changes: +SPIR50TA4 PO
[2021-08-06 17:15] VITALS: BP 121/66
== END 2021-08-06 17:36 | disposition home or self-care (01) ==
LOC: M INFU 14:23
PROVIDERS: ATTEND Internal Medicine Medical Oncology
DX: D64.9 Anemia, unspecified (principal)
CPT/HCPCS: 36430; P9016

== ENCOUNTER → 2021-08-19 | Outpatient (CLI) | payer OTHER ==
[~2021-08-19] MED LIST changes: +CEPHALEXIN 500 MG CAP PO STA; +LIDOCAINE 1% MDV 20ML VIAL As Ordered ONE; +MAGO400T2 PO; +NS 1,000 ML IV SCH; +ceFAZolin 2 GM/D5W 50 ML IV BAG (J0690 PER 500MG) As Ordered ONE; +ceFAZolin SOD 2 GM in IV 1 EA IV ONE
[2021-08-19 11:55] VITALS: BP 158/75
== END ==
LOC: M IRPRO 09:43
PROVIDERS: ATTEND Radiology Diagnostic Radiology
DX: D50.0 Iron deficiency anemia secondary to blood loss (chronic) (principal); D69.6 Thrombocytopenia, unspecified
CPT/HCPCS: 36561; C1769; C1788; C1894; J0690; J1642; J1644

== ENCOUNTER → 2021-09-03 | Outpatient (POV) | payer OTHER ==
[~2021-09-03] VITALS: Ht 180.3 cm; Wt 136.1 kg
[~2021-09-03] MED LIST changes: -CEPHALEXIN 500 MG CAP PO STA; -LIDOCAINE 1% MDV 20ML VIAL As Ordered ONE; -NS 1,000 ML IV SCH; -ceFAZolin 2 GM/D5W 50 ML IV BAG (J0690 PER 500MG) As Ordered ONE; -ceFAZolin SOD 2 GM in IV 1 EA IV ONE
[2021-09-03 15:00] VITALS: BP 149/66
== END ==
LOC: M IRPOV 13:29
PROVIDERS: ATTEND Radiology Diagnostic Radiology
DX: Z45.2 Encounter for adjustment and management of vascular access device (principal)

== ENCOUNTER → 2021-09-30 | Outpatient (REF) | payer OTHER ==
[2021-09-30 17:11] LABS: ALBUMIN 3.1 GM/DL (3.2-5.2); BILIRUBIN,TOTAL 2.3 MG/DL (0.2-1.0); CALCIUM LEVEL 8.8 MG/DL (8.5-10.1); CREATININE FOR GFR 1.45 MG/DL (0.70-1.30); GLOMERULAR FILTRATION RATE 53.2 (>56); TOTAL PROTEIN 7.5 GM/DL (6.4-8.2)
[2021-09-30 19:16] LABS: HEMOGLOBIN A1c 5.7 %
== END ==
LOC: M LAB REF 16:40
PROVIDERS: ATTEND Physician Assistant
DX: I10 Essential (primary) hypertension (principal); E11.9 Type 2 diabetes mellitus without complications; R31.9 Hematuria, unspecified

== ENCOUNTER → 2022-01-29 | Outpatient (REF) ==
[~2022-01-29] MED LIST changes: +B-122500 PO; +BUME1TAB3; +BUME2TAB3 PO; +NOXI1TAB PO; +THERTAB52 PO; +VITA500045 PO
== END ==
LOC: M PLAIMG 14:47
PROVIDERS: ATTEND Internal Medicine
DX: M51.37 Other intervertebral disc degeneration, lumbosacral region (principal); M16.0 Bilateral primary osteoarthritis of hip

== ENCOUNTER → 2022-09-15 | Outpatient (REF) | payer OTHER ==
[~2022-09-15] MED LIST changes: +BUME2TAB3; +SPIR100T3; +TORS100T
[2022-09-15 18:12] LABS: POTASSIUM SERUM 4.3 MMOL/L (3.5-5.1)
== END ==
LOC: M LAB REF 17:02
PROVIDERS: ATTEND Internal Medicine Nephrology
DX: N18.32 Chronic kidney disease, stage 3b (principal)

== ENCOUNTER → 2022-12-30 | Outpatient (CLI) | payer MEDICARE, OTHER ==
[~2022-12-30] MED LIST changes: +SENN-111 PO; -SENN18TA PO
== END ==
LOC: M RAD 09:35
PROVIDERS: ATTEND Internal Medicine Gastroenterology
DX: K76.0 Fatty (change of) liver, not elsewhere classified (principal); K80.20 Calculus of gallbladder without cholecystitis without obstruction; K76.89 Other specified diseases of liver; K70.30 Alcoholic cirrhosis of liver without ascites

== ENCOUNTER → 2023-02-25 | Outpatient (CLI) | payer MEDICARE, OTHER ==
[~2023-02-25] MED LIST changes: -GABA-283 PO; +GABA-284 PO; +GASTROGRAFIN SOLUTION 30ML As Ordered ONE; +ISOVUE-370 76% 100ML VIAL As Ordered ONE
== END ==
LOC: M RAD 09:28
PROVIDERS: ATTEND Internal Medicine Gastroenterology
DX: K70.30 Alcoholic cirrhosis of liver without ascites (principal)
CPT/HCPCS: 74160; Q9963; Q9967

== ENCOUNTER 2023-07-07 15:24 | Emergency (ER) | payer MEDICARE, OTHER ==
[~2023-07-07] VITALS: Ht 180.3 cm; Wt 146.2 kg
[~2023-07-07 15:24] MED LIST changes: -GASTROGRAFIN SOLUTION 30ML As Ordered ONE; -ISOVUE-370 76% 100ML VIAL As Ordered ONE
[2023-07-07 16:38] LABS: BASO % 0.5 % (0.0-1.0); EOS # 0.2 10^3/uL (0.0-0.5); EOS % 2.5 % (0.0-3.0); HEMATOCRIT 26.1 % (42.0-52.0); HEMOGLOBIN 8.1 g/dl (13.5-17.5); LYMPH # 0.6 10^3/uL (1.5-5.0); LYMPH % 7.6 % (24.0-44.0); MEAN CORPUSCULAR HEMOGLOBIN 32.7 pg (27.0-33.0); MEAN CORPUSCULAR VOLUME 105.2 fl (80.0-96.0); MONO # 1.2 10^3/uL (0.0-0.8); MONO % 15.5 % (2.0-8.0); NEUTROPHILS # 5.6 10^3/uL (1.5-8.5); NEUTROPHILS % 73.2 % (36.0-66.0); RED BLOOD COUNT 2.48 10^6/uL (4.30-6.10); WHITE BLOOD COUNT 7.6 10^3/uL (4.0-10.0)
[2023-07-07 16:45] LABS: PLATELET COUNT, AUTOMATED 76 10^3/uL (150-450)
[2023-07-07 16:59] LABS: ALBUMIN 2.7 G/DL (3.2-5.2); BILIRUBIN,TOTAL 3.1 MG/DL (0.3-1.2); CALCIUM LEVEL 8.7 MG/DL (8.3-10.6); CREATININE FOR GFR 3.32 MG/DL (0.70-1.30); GLOMERULAR FILTRATION RATE 20.3 (>49); POTASSIUM SERUM 5.1 MMOL/L (3.5-5.1); TOTAL PROTEIN 7.2 G/DL (5.7-8.2)
[2023-07-07 17:16] LABS: INR 1.59; PROTHROMBIN TIME 18.5 SECONDS (12.5-14.5); RSV AMPLIFICATION NEGATIVE (NEGATIVE)
[2023-07-07 17:17] LABS: PARTIAL THROMBOPLASTIN TIME 43.1 SECONDS (24.8-34.2)
[2023-07-07] MEDS ORDERED: NS 1,000 ML IV SCH (17:35)
[2023-07-07] MEDS ORDERED: NS 500 ML IV ONE (17:35)
[2023-07-07] MEDS ORDERED: PANTOPRAZOLE 40MG VIAL IV ONE (17:45)
[2023-07-07 21:00] VITALS: BP 118/61; TEMP 98.1; O2SAT 99
== END 2023-07-07 21:15 | disposition left against medical advice (07) ==
LOC: EDBD 15:24 → M ED 15:24
DX: K92.2 Gastrointestinal hemorrhage, unspecified (principal); N17.9 Acute kidney failure, unspecified; I10 Essential (primary) hypertension; I50.20 Unspecified systolic (congestive) heart failure; E11.9 Type 2 diabetes mellitus without complications; K21.9 Gastro-esophageal reflux disease without esophagitis; K75.4 Autoimmune hepatitis; Z79.899 Other long term (current) drug therapy
CPT/HCPCS: 71045; 80048; 80076; 83605; 83690; 85025; 85049; 85055; 85384; 85610; 85730; 86850; 86900; 86901; 87507; 87631; 93005; 93041; 94760; 96361; 96374; 99285; C9113

== ENCOUNTER → 2023-08-10 | Outpatient (REF) | payer MEDICARE ==
[~2023-08-10] MED LIST changes: -BUME2TAB3; +LEVO1TAB39 PO; +MIDO10TA PO; -SPIR100T3; +SPIR100T3 PO; +SUCR1TAB56 PO; +VITA200028 PO; +XIFA200T2 PO
== END ==
LOC: M LAB REF 14:57
PROVIDERS: ATTEND Physician Assistant
DX: E11.9 Type 2 diabetes mellitus without complications (principal); K70.30 Alcoholic cirrhosis of liver without ascites

== ENCOUNTER 2023-08-28 13:42 | Outpatient (CLI) | payer MEDICARE ==
[~2023-08-28 13:42] MED LIST changes: +ALBUTEROL SULFATE 2.5MG/0.5ML INH NEB SOLN INH PRN; +EPINEPHrine INJ 1 MG/ML 1ML AMP IM PRN; +NS 1,000 ML IV SCH; +diphenhydrAMINE 50MG/ML VIAL IV PRN; +methylPREDNISolone 125MG 2ML VIAL IV PRN
[2023-08-28 13:50] VITALS: BP 112/50; O2SAT 100
[2023-08-28] MEDS: FERRIC CARBOXYMALTOSE INJ 750 MG in NS 250 ML (>50kg) IV ONE (14:13)
[2023-08-28 16:02] VITALS: BP 115/54; O2SAT 100
== END 2023-08-28 16:00 | disposition home or self-care (01) ==
LOC: M INFU 13:42
PROVIDERS: ATTEND Internal Medicine Nephrology
DX: E61.1 Iron deficiency (principal)
CPT/HCPCS: 96365; J1439

== ENCOUNTER 2023-09-23 04:22 | Inpatient (IN) | payer MEDICARE ==
[2023-09-23] VITALS (8 sets, daily range): BP systolic 83–104; BP diastolic 46–54; TEMP 96.9–99; O2SAT 95–100
[~2023-09-23] VITALS: Ht 180.3 cm; Wt 144.3 kg
[~2023-09-23 04:22] MED LIST changes: -ALBUTEROL SULFATE 2.5MG/0.5ML INH NEB SOLN INH PRN; -EPINEPHrine INJ 1 MG/ML 1ML AMP IM PRN; -NS 1,000 ML IV SCH; +OMEP-173 PO; -diphenhydrAMINE 50MG/ML VIAL IV PRN; -methylPREDNISolone 125MG 2ML VIAL IV PRN
[2023-09-23] MEDS: NS IV ONE (04:45)
[2023-09-23 04:55] LABS: BASO % 0.4 % (0.0-1.0); EOS % 0.2 % (0.0-3.0); HEMATOCRIT 24.4 % (42.0-52.0); HEMOGLOBIN 8.1 g/dl (13.5-17.5); LYMPH # 0.2 10^3/uL (1.5-5.0); LYMPH % 2.2 % (24.0-44.0); MEAN CORPUSCULAR HEMOGLOBIN 33.8 pg (27.0-33.0); MEAN CORPUSCULAR HGB CONC 33.2 g/dl (32.0-36.5); MEAN CORPUSCULAR VOLUME 101.7 fl (80.0-96.0); MONO # 0.4 10^3/uL (0.0-0.8); MONO % 4.6 % (2.0-8.0); NEUTROPHILS # 7.9 10^3/uL (1.5-8.5); NEUTROPHILS % 92.4 % (36.0-66.0); WHITE BLOOD COUNT 8.5 10^3/uL (4.0-10.0)
[2023-09-23 04:59] LABS: PLATELET COUNT, AUTOMATED 97 10^3/uL (150-450)
[2023-09-23 05:02] LABS: INR 1.56; PARTIAL THROMBOPLASTIN TIME 37.9 SECONDS (24.8-34.2); PROTHROMBIN TIME 18.2 SECONDS (12.5-14.5)
[2023-09-23 05:19] LABS: VENOUS BASE EXCESS -2.3 (-2.0-2.0); VENOUS HCO3 21.1 MMOL/L (23.0-27.0); VENOUS O2 SATURATION 96.8 % (60.0-80.0); VENOUS PARTIAL PRESSURE CO2 31.1 mmHg (38.0-50.0); VENOUS PARTIAL PRESSURE O2 94.8 mmHg (30.0-50.0); VENOUS PH 7.449 UNITS (7.330-7.430); VENOUS STANDARD HCO3 22.5 MMOL/L
[2023-09-23 05:20] LABS: CREATININE FOR GFR 1.95 MG/DL (0.70-1.30); GLOMERULAR FILTRATION RATE 37.5 (>49); POTASSIUM SERUM 4.9 MMOL/L (3.5-5.1)
[2023-09-23 05:32] LABS: PROCALCITONIN 9.98 ng/ml
[2023-09-23 05:33] LABS: ETHYL ALCOHOL (ETHANOL) 0.003 % (0.000-0.010)
[2023-09-23 05:36] LABS: MB/CK RELATIVE INDEX 3.57 (< OR =4)
[2023-09-23] MEDS: cefTRIAXone SOD 2 GM in D5W MINI-BAG PLUS 50 ML IV ONE (07:39)
[2023-09-23] MEDS: ONDANSETRON 4MG 2ML VIAL IV ONE (07:39)
[2023-09-23] MEDS: ACETAMINOPHEN 500 MG TAB PO ONE (07:40)
[2023-09-23] MEDS ORDERED: PANT-23 PO (08:39)
[2023-09-23] MEDS ORDERED: POTA-150 PO (08:39)
[2023-09-23] MEDS ORDERED: OMEP-173 PO (08:39)
[2023-09-23] MEDS ORDERED: LACT20EL PO (08:39)
[2023-09-23] MEDS ORDERED: HOME MED LIST COMPLETE! XX SCH (08:40)
[2023-09-23] MEDS: MIDODRINE 5 MG TAB PO STA (09:18)
[2023-09-23 09:32] LABS: MAGNESIUM LEVEL 1.7 MG/DL (1.8-2.4)
[2023-09-23 09:33] LABS: CK-MB VALUE MASS < 1.0 NG/ML (<3.6)
[2023-09-23 09:34] LABS: CPK CREATINE PHOSPHOKINASE 31 U/L (46-171); MB/CK RELATIVE INDEX 3.22 (< OR =4)
[2023-09-23 09:38] LABS: FREE T4 1.15 NG/DL (0.89-1.76); THYROID STIMULATING HORMONE 4.095 uIU/ML (0.55-4.78)
[2023-09-23 12:21] LABS: CREATININE,RANDOM URINE 150.2 MG/DL
[2023-09-23] MEDS ORDERED: LACTULOSE 20GM/30ML SYRUP UDC PO PRN (13:55)
[2023-09-23] MEDS: MIDODRINE 5 MG TAB PO SCH (16:11)
[2023-09-23] MEDS ORDERED: PANTOPRAZOLE 40MG TAB (PROTONIX) PO SCH (21:00)
[2023-09-23] MEDS: PIPERACILLIN/TAZOBACTAM SOD 4.5 GM in D5W MINI-BAG PLUS 50 ML IV SCH (21:23)
[2023-09-23] MEDS: HEPARIN SOD (PORCINE) 5000UNITS/ML 1ML VIAL/SYRINGE SC SCH (21:24)
[2023-09-23] MEDS: ACETAMINOPHEN TAB 650MG DOSE (2X325MG) PO PRN (23:41)
[2023-09-24] VITALS (18 sets, daily range): BP systolic 80–107; BP diastolic 42–56; TEMP 96.9–98.6; O2SAT 94–100
[2023-09-24 05:27] LABS: BASO # 0.1 10^3/uL (0.0-0.2); BASO % 0.5 % (0.0-1.0); EOS # 0.3 10^3/uL (0.0-0.5); EOS % 2.5 % (0.0-3.0); HEMATOCRIT 22.9 % (42.0-52.0); HEMOGLOBIN 7.5 g/dl (13.5-17.5); LYMPH # 0.6 10^3/uL (1.5-5.0); LYMPH % 4.1 % (24.0-44.0); MEAN CORPUSCULAR HEMOGLOBIN 33.3 pg (27.0-33.0); MEAN CORPUSCULAR HGB CONC 32.8 g/dl (32.0-36.5); MEAN CORPUSCULAR VOLUME 101.8 fl (80.0-96.0); MONO # 1.2 10^3/uL (0.0-0.8); MONO % 8.7 % (2.0-8.0); NEUTROPHILS # 11.2 10^3/uL (1.5-8.5); NEUTROPHILS % 83.8 % (36.0-66.0); RED BLOOD COUNT 2.25 10^6/uL (4.30-6.10); WHITE BLOOD COUNT 13.3 10^3/uL (4.0-10.0)
[2023-09-24 05:29] LABS: PLATELET COUNT, AUTOMATED 72 10^3/uL (150-450)
[2023-09-24 05:52] LABS: CALCIUM LEVEL 7.8 MG/DL (8.3-10.6); CREATININE FOR GFR 2.3 MG/DL (0.70-1.30); POTASSIUM SERUM 4.8 MMOL/L (3.5-5.1)
[2023-09-24] MEDS: BUMETANIDE 1 MG TAB PO SCH (08:52)
[2023-09-24] MEDS: POTASSIUM CHLORIDE 10MEQ SR TABLET PO SCH (08:57)
[2023-09-24] MEDS: SPIRONOLACTONE 50 MG TAB PO SCH (08:57)
[2023-09-24] MEDS: OMEPRAZOLE 20MG CAP PO SCH (08:57)
[2023-09-24] MEDS: CYANOCOBALAMIN 500 MCG TAB PO SCH (08:58)
[2023-09-24 09:56] LABS: BASO # 0.1 10^3/uL (0.0-0.2); BASO % 0.5 % (0.0-1.0); EOS # 0.3 10^3/uL (0.0-0.5); EOS % 2.1 % (0.0-3.0); HEMATOCRIT 24.8 % (42.0-52.0); LYMPH # 0.5 10^3/uL (1.5-5.0); LYMPH % 3.1 % (24.0-44.0); MEAN CORPUSCULAR HEMOGLOBIN 33.9 pg (27.0-33.0); MEAN CORPUSCULAR HGB CONC 32.3 g/dl (32.0-36.5); MEAN CORPUSCULAR VOLUME 105.1 fl (80.0-96.0); MONO # 0.9 10^3/uL (0.0-0.8); MONO % 6.2 % (2.0-8.0); NEUTROPHILS # 12.6 10^3/uL (1.5-8.5); NEUTROPHILS % 87.4 % (36.0-66.0); RED BLOOD COUNT 2.36 10^6/uL (4.30-6.10); WHITE BLOOD COUNT 14.5 10^3/uL (4.0-10.0)
[2023-09-24 09:59] LABS: PLATELET COUNT, AUTOMATED 89 10^3/uL (150-450)
[2023-09-24 10:07] LABS: INR 1.99; PROTHROMBIN TIME 21.9 SECONDS (12.5-14.5)
[2023-09-24 10:17] LABS: CK-MB VALUE MASS < 1.0 NG/ML (<3.6)
[2023-09-24 10:18] LABS: CPK CREATINE PHOSPHOKINASE 24 U/L (46-171); MB/CK RELATIVE INDEX 4.16 (< OR =4)
[2023-09-24 10:21] LABS: ALBUMIN 2.2 G/DL (3.2-5.2); BILIRUBIN,DIRECT 1.9 MG/DL (<0.4); CALCIUM LEVEL 8.1 MG/DL (8.3-10.6); CREATININE FOR GFR 2.28 MG/DL (0.70-1.30); GLOMERULAR FILTRATION RATE 31.3 (>49); MAGNESIUM LEVEL 1.8 MG/DL (1.8-2.4); POTASSIUM SERUM 4.8 MMOL/L (3.5-5.1); TOTAL PROTEIN 6.4 G/DL (5.7-8.2)
[2023-09-24] MEDS: BUMETANIDE 1 MG TAB PO ONE (15:04)
[2023-09-24] MEDS: ONDANSETRON 4MG 2ML VIAL IV PRN (21:50)
[2023-09-25] VITALS (9 sets, daily range): BP systolic 84–111; BP diastolic 49–56; TEMP 97.2–98.1; O2SAT 95–98
[2023-09-25 07:40] LABS: HEMATOCRIT 22.2 % (42.0-52.0); HEMOGLOBIN 7.3 g/dl (13.5-17.5); MEAN CORPUSCULAR HEMOGLOBIN 34.1 pg (27.0-33.0); MEAN CORPUSCULAR HGB CONC 32.9 g/dl (32.0-36.5); MEAN CORPUSCULAR VOLUME 103.7 fl (80.0-96.0); RED BLOOD COUNT 2.14 10^6/uL (4.30-6.10); WHITE BLOOD COUNT 9.1 10^3/uL (4.0-10.0)
[2023-09-25 07:45] LABS: ALBUMIN 2.2 G/DL (3.2-5.2); CALCIUM LEVEL 8.1 MG/DL (8.3-10.6); CREATININE FOR GFR 2.31 MG/DL (0.70-1.30); GLOMERULAR FILTRATION RATE 30.9 (>49); POTASSIUM SERUM 4.7 MMOL/L (3.5-5.1); TOTAL PROTEIN 6.1 G/DL (5.7-8.2)
[2023-09-25 08:00] LABS: PLATELET COUNT, AUTOMATED 76 10^3/uL (150-450)
[2023-09-25 08:29] LABS: INR 1.63; PROTHROMBIN TIME 18.8 SECONDS (12.5-14.5)
[2023-09-25] MEDS ORDERED: SODIUM CHLORIDE 0.9% INJ 10 ML SYR IV SCH (09:00)
[2023-09-25] MEDS: BUMETANIDE 1MG/4ML VIAL IV SCH (09:03)
[2023-09-25] MEDS: MEROPENEM INJ 1 GM in IV 1 EA IV SCH (09:43)
[2023-09-25] MEDS: VITAMIN D 1,000 INTERNATIONAL UNITS TABLET PO SCH (13:27)
[2023-09-25] MEDS: MULTIVITAMINS/MINERALS THERAP 1 TAB PO SCH (13:27)
[2023-09-26] VITALS: BP 109/56; TEMP 97.4; O2SAT 97
[2023-09-26 04:00] VITALS: BP 95/51; TEMP 97.6; O2SAT 98
[2023-09-26 04:56] LABS: BASO # 0.1 10^3/uL (0.0-0.2); BASO % 0.8 % (0.0-1.0); EOS # 0.3 10^3/uL (0.0-0.5); EOS % 4.1 % (0.0-3.0); HEMATOCRIT 24.3 % (42.0-52.0); HEMOGLOBIN 7.8 g/dl (13.5-17.5); LYMPH # 0.7 10^3/uL (1.5-5.0); LYMPH % 10.5 % (24.0-44.0); MEAN CORPUSCULAR HEMOGLOBIN 33.6 pg (27.0-33.0); MEAN CORPUSCULAR HGB CONC 32.1 g/dl (32.0-36.5); MEAN CORPUSCULAR VOLUME 104.7 fl (80.0-96.0); MONO # 0.7 10^3/uL (0.0-0.8); MONO % 10.7 % (2.0-8.0); NEUTROPHILS # 4.6 10^3/uL (1.5-8.5); NEUTROPHILS % 73.1 % (36.0-66.0); RED BLOOD COUNT 2.32 10^6/uL (4.30-6.10); WHITE BLOOD COUNT 6.3 10^3/uL (4.0-10.0)
[2023-09-26 05:20] LABS: ALBUMIN 2.3 G/DL (3.2-5.2); BILIRUBIN,TOTAL 1.8 MG/DL (0.3-1.2); CALCIUM LEVEL 8.7 MG/DL (8.3-10.6); CREATININE FOR GFR 2.09 MG/DL (0.70-1.30); GLOMERULAR FILTRATION RATE 34.7 (>49); MAGNESIUM LEVEL 1.9 MG/DL (1.8-2.4); PLATELET COUNT, AUTOMATED 86 10^3/uL (150-450); POTASSIUM SERUM 4.7 MMOL/L (3.5-5.1); TOTAL PROTEIN 6.4 G/DL (5.7-8.2)
[2023-09-26 07:28] VITALS: BP 92/50; TEMP 98.8; O2SAT 98
[2023-09-26 11:38] VITALS: BP 98/51; TEMP 98.5; O2SAT 98
[2023-09-26 15:50] VITALS: BP 101/57; TEMP 97.9; O2SAT 98
[2023-09-26 22:00] VITALS: BP 104/56; TEMP 97.7; O2SAT 99
[2023-09-27 05:59] LABS: BASO # 0.1 10^3/uL (0.0-0.2); BASO % 1.3 % (0.0-1.0); EOS # 0.3 10^3/uL (0.0-0.5); EOS % 4.5 % (0.0-3.0); HEMATOCRIT 25.3 % (42.0-52.0); HEMOGLOBIN 8.1 g/dl (13.5-17.5); LYMPH # 0.7 10^3/uL (1.5-5.0); MEAN CORPUSCULAR HEMOGLOBIN 33.1 pg (27.0-33.0); MEAN CORPUSCULAR VOLUME 103.3 fl (80.0-96.0); MONO # 0.8 10^3/uL (0.0-0.8); MONO % 14.5 % (2.0-8.0); NEUTROPHILS # 3.7 10^3/uL (1.5-8.5); NEUTROPHILS % 66.6 % (36.0-66.0); RED BLOOD COUNT 2.45 10^6/uL (4.30-6.10); WHITE BLOOD COUNT 5.6 10^3/uL (4.0-10.0)
[2023-09-27 06:00] VITALS: BP 110/50; TEMP 98.1; O2SAT 93
[2023-09-27 06:02] LABS: PLATELET COUNT, AUTOMATED 99 10^3/uL (150-450)
[2023-09-27 06:21] LABS: ALBUMIN 2.3 G/DL (3.2-5.2); BILIRUBIN,TOTAL 1.7 MG/DL (0.3-1.2); CALCIUM LEVEL 8.9 MG/DL (8.3-10.6); CREATININE FOR GFR 1.87 MG/DL (0.70-1.30); GLOMERULAR FILTRATION RATE 39.4 (>49); MAGNESIUM LEVEL 1.7 MG/DL (1.8-2.4); PERCENT SATURATION 17.8 % (19.7-50.0); POTASSIUM SERUM 4.7 MMOL/L (3.5-5.1); TOTAL PROTEIN 6.4 G/DL (5.7-8.2)
[2023-09-27] MEDS: MAG SULF 1GM/100ML (MAG RUN) 1 GM in IV 1 EA IV ONE (10:11)
[2023-09-27] MEDS: VANICREAM MOISTURIZING SKIN CREAM 113GM TUBE TOP SCH (12:21)
[2023-09-27] MEDS: BUMETANIDE 1MG/4ML VIAL IV SCH (12:21)
[2023-09-27 14:00] VITALS: BP 127/62; TEMP 97.9; O2SAT 97
[2023-09-27 20:42] VITALS: BP 122/56; TEMP 97.9; O2SAT 98
[2023-09-28 05:03] VITALS: BP 119/58; TEMP 97.2; O2SAT 99
[2023-09-28 06:20] LABS: BASO % 0.7 % (0.0-1.0); EOS # 0.2 10^3/uL (0.0-0.5); EOS % 3.7 % (0.0-3.0); HEMATOCRIT 24.6 % (42.0-52.0); HEMOGLOBIN 7.8 g/dl (13.5-17.5); LYMPH # 0.6 10^3/uL (1.5-5.0); LYMPH % 11.1 % (24.0-44.0); MEAN CORPUSCULAR HEMOGLOBIN 33.3 pg (27.0-33.0); MEAN CORPUSCULAR HGB CONC 31.7 g/dl (32.0-36.5); MEAN CORPUSCULAR VOLUME 105.1 fl (80.0-96.0); MONO # 0.9 10^3/uL (0.0-0.8); MONO % 15.7 % (2.0-8.0); NEUTROPHILS # 3.8 10^3/uL (1.5-8.5); NEUTROPHILS % 67.2 % (36.0-66.0); RED BLOOD COUNT 2.34 10^6/uL (4.30-6.10); WHITE BLOOD COUNT 5.7 10^3/uL (4.0-10.0)
[2023-09-28 06:26] LABS: PLATELET COUNT, AUTOMATED 95 10^3/uL (150-450)
[2023-09-28 06:51] LABS: ALBUMIN 2.1 G/DL (3.2-5.2); BILIRUBIN,TOTAL 1.8 MG/DL (0.3-1.2); CALCIUM LEVEL 9.1 MG/DL (8.3-10.6); CREATININE FOR GFR 1.67 MG/DL (0.70-1.30); GLOMERULAR FILTRATION RATE 44.9 (>49); MAGNESIUM LEVEL 1.7 MG/DL (1.8-2.4); POTASSIUM SERUM 4.3 MMOL/L (3.5-5.1); TOTAL PROTEIN 6.4 G/DL (5.7-8.2)
[2023-09-28] MEDS: MAG SULF 1GM/100ML (MAG RUN) 1 GM in IV 1 EA IV ONE (09:05)
[2023-09-28 10:32] LABS: FERRITIN 98.9 NG/ML (10.5-307.3)
[2023-09-28] MEDS ORDERED: LIDOCAINE W/EPINEPHRINE 1% 20ML VIAL As Ordered ONE (11:35)
[2023-09-28] MEDS ORDERED: ISOVUE-300 61% 100ML VIAL As Ordered ONE (11:35)
[2023-09-28 14:00] VITALS: BP 113/57; TEMP 98.4; O2SAT 99
[2023-09-28 20:19] VITALS: BP 106/91; TEMP 98.6; O2SAT 96
[2023-09-29] MEDS: ERTAPENEM SODIUM 1 GM in NS MINI-BAG PLUS 50 ML IV SCH (06:27)
[2023-09-29 06:29] VITALS: BP 123/55; TEMP 97.6; O2SAT 98
[2023-09-29 07:06] LABS: BASO # 0.1 10^3/uL (0.0-0.2); EOS # 0.2 10^3/uL (0.0-0.5); HEMATOCRIT 26.5 % (42.0-52.0); HEMOGLOBIN 8.6 g/dl (13.5-17.5); LYMPH # 0.9 10^3/uL (1.5-5.0); LYMPH % 14.2 % (24.0-44.0); MEAN CORPUSCULAR HEMOGLOBIN 33.1 pg (27.0-33.0); MEAN CORPUSCULAR HGB CONC 32.5 g/dl (32.0-36.5); MEAN CORPUSCULAR VOLUME 101.9 fl (80.0-96.0); MONO # 0.9 10^3/uL (0.0-0.8); MONO % 15.3 % (2.0-8.0); NEUTROPHILS # 3.8 10^3/uL (1.5-8.5); NEUTROPHILS % 63.2 % (36.0-66.0); PLATELET COUNT, AUTOMATED 115 10^3/uL (150-450); WHITE BLOOD COUNT 6.1 10^3/uL (4.0-10.0)
[2023-09-29] MEDS: SODIUM CHLORIDE 0.9% INJ 10 ML SYR IV PRN (07:28)
[2023-09-29 07:34] LABS: ALBUMIN 2.5 G/DL (3.2-5.2); ALKALINE PHOSPHATASE 44 U/L (46-116); ALT/SGPT 17 U/L (7.0-40); AST/SGOT 43 U/L (<34); BILIRUBIN,TOTAL 2.4 MG/DL (0.3-1.2); BLOOD UREA NITROGEN 43 MG/DL (9-23); CALCIUM LEVEL 9.1 MG/DL (8.3-10.6); CARBON DIOXIDE LEVEL 26 MMOL/L (20-31); CHLORIDE LEVEL 101 MMOL/L (98-107); CREATININE FOR GFR 1.49 MG/DL (0.70-1.30); FOLATE > 24.00 NG/ML (>5.4); GLOMERULAR FILTRATION RATE 51.2 (>49); GLUCOSE, FASTING 96 MG/DL (74-106); MAGNESIUM LEVEL 1.6 MG/DL (1.8-2.4); POTASSIUM SERUM 4.3 MMOL/L (3.5-5.1); SODIUM LEVEL 133 MMOL/L (136-145); TOTAL PROTEIN 6.9 G/DL (5.7-8.2); VITAMIN B12 LEVEL > 2000 PG/ML (211-911)
[2023-09-29] MEDS: MAG SULF 1GM/100ML (MAG RUN) 1 GM in IV 1 EA IV SCH (09:56)
[2023-09-29] MEDS: SODIUM CHLORIDE 0.9% INJ 10 ML SYR IV SCH (09:58)
[2023-09-29 14:00] VITALS: BP 111/57; TEMP 97.7; O2SAT 97
[2023-09-29] MEDS ORDERED: ERTA1INJ3 IJ (14:12)
[2023-09-29] MEDS ORDERED: BUME2TAB3 PO (14:12)
[2023-09-29] MEDS ORDERED: MAGN400T35 PO (14:19)
[2023-09-29] MEDS ORDERED: SODIUM CHLORIDE 0.9% INJ 10 ML SYR IV PRN (15:30)
[2023-09-30] MEDS ORDERED: BUMETANIDE 1 MG TAB PO SCH (09:00)
== END 2023-09-29 16:03 | disposition home or self-care (01) | DRG 871 ==
LOC: M ED 04:22 → M ED INP 13:28 → EEVIPCON 13:28 → ENRESERV 14:01 → M ICU 14:56 → M MSPAV 09-26 15:26
PROVIDERS: ADMIT Internal Medicine Pulmonary Disease; ATTEND Internal Medicine
PROC: 30233J1 Transfusion of Nonautologous Serum Albumin into Peripheral Vein, Percutaneous Approach (ICD-10-PCS; principal; 2023-09-24)
DX: A41.50 Gram-negative sepsis, unspecified (principal); I50.33 Acute on chronic diastolic (congestive) heart failure; K76.6 Portal hypertension; I85.00 Esophageal varices without bleeding; E87.3 Alkalosis; N17.9 Acute kidney failure, unspecified; I13.0 Hypertensive heart and chronic kidney disease with heart failure and stage 1 through stage 4 chronic kidney disease, or unspecified chronic kidney disease; E87.1 Hypo-osmolality and hyponatremia; L03.115 Cellulitis of right lower limb; L97.919 Non-pressure chronic ulcer of unspecified part of right lower leg with unspecified severity; T82.7XXA Infection and inflammatory reaction due to other cardiac and vascular devices, implants and grafts, initial encounter; G47.33 Obstructive sleep apnea (adult) (pediatric); I48.91 Unspecified atrial fibrillation; M10.9 Gout, unspecified; K21.9 Gastro-esophageal reflux disease without esophagitis; N18.30 Chronic kidney disease, stage 3 unspecified; K70.30 Alcoholic cirrhosis of liver without ascites; D69.6 Thrombocytopenia, unspecified; K76.0 Fatty (change of) liver, not elsewhere classified; D64.9 Anemia, unspecified; F17.220 Nicotine dependence, chewing tobacco, uncomplicated; B96.1 Klebsiella pneumoniae [K. pneumoniae] as the cause of diseases classified elsewhere; R26.89 Other abnormalities of gait and mobility; I27.20 Pulmonary hypertension, unspecified; E83.42 Hypomagnesemia; R07.89 Other chest pain; I87.2 Venous insufficiency (chronic) (peripheral); Z79.899 Other long term (current) drug therapy; Z11.52 Encounter for screening for COVID-19

== ENCOUNTER 2023-09-30 10:15 | Outpatient (CLI) | payer MEDICARE ==
[~2023-09-30] VITALS: Ht 180.3 cm; Wt 144.2 kg
[2023-09-30 10:15] VITALS: BP 102/53; O2SAT 100
[~2023-09-30 10:15] MED LIST changes: +ERTA1INJ3 IJ; +MAGN400T35 PO; +PANT-23 PO; +POTA-150 PO
[2023-09-30] MEDS: ERTAPENEM SODIUM 1 GM in NS MINI-BAG PLUS 50 ML IV ONE (10:36)
[2023-09-30] MEDS: SODIUM CHLORIDE 0.9% INJ 10 ML SYR IV PRN (11:17)
[2023-09-30 11:30] VITALS: BP 104/51; O2SAT 100
== END 2023-09-30 11:30 ==
LOC: M INFU 10:15
PROVIDERS: ATTEND Internal Medicine
DX: J15.0 Pneumonia due to Klebsiella pneumoniae (principal)
CPT/HCPCS: 96365; J1335

== ENCOUNTER 2023-10-01 10:15 | Outpatient (CLI) | payer MEDICARE ==
[~2023-10-01] VITALS: Ht 180.3 cm; Wt 141.0 kg
[2023-10-01 10:15] VITALS: BP 97/50; O2SAT 98
[2023-10-01] MEDS: ERTAPENEM SODIUM 1 GM in NS MINI-BAG PLUS 50 ML IV ONE (10:34)
[2023-10-01] MEDS: SODIUM CHLORIDE 0.9% INJ 10 ML SYR IV PRN (11:10)
[2023-10-01 11:20] VITALS: BP 91/55; O2SAT 100
== END 2023-10-01 11:20 ==
LOC: M INFU 10:15
PROVIDERS: ATTEND Internal Medicine
DX: J15.0 Pneumonia due to Klebsiella pneumoniae (principal)
CPT/HCPCS: 96365; J1335

== ENCOUNTER 2023-10-02 11:21 | Outpatient (CLI) | payer MEDICARE ==
[~2023-10-02] VITALS: Ht 180.3 cm; Wt 144.3 kg
[2023-10-02 11:38] VITALS: BP 100/51; O2SAT 100
[2023-10-02] MEDS: ERTAPENEM SODIUM 1 GM in NS MINI-BAG PLUS 50 ML IV ONE (11:39)
[2023-10-02] MEDS: SODIUM CHLORIDE 0.9% INJ 10 ML SYR IV SCH (12:19)
[2023-10-02 12:30] VITALS: BP 100/52; O2SAT 98
== END 2023-10-02 12:30 | disposition home or self-care (01) ==
LOC: M INFU 11:21
PROVIDERS: ATTEND Internal Medicine
DX: J15.0 Pneumonia due to Klebsiella pneumoniae (principal)
CPT/HCPCS: 96365; G0463; J1335

== ENCOUNTER 2023-10-07 03:40 | Emergency (ER) | payer MEDICARE ==
[~2023-10-07] VITALS: Ht 180.3 cm; Wt 141.0 kg
[2023-10-07] MEDS: MIDODRINE 5 MG TAB PO ONE (04:51)
[2023-10-07 04:57] LABS: BASO % 0.2 % (0.0-1.0); EOS % 0.1 % (0.0-3.0); HEMATOCRIT 23.6 % (42.0-52.0); LYMPH # 0.3 10^3/uL (1.5-5.0); LYMPH % 2.1 % (24.0-44.0); MEAN CORPUSCULAR HEMOGLOBIN 33.9 pg (27.0-33.0); MEAN CORPUSCULAR HGB CONC 33.9 g/dl (32.0-36.5); MONO # 0.6 10^3/uL (0.0-0.8); MONO % 4.6 % (2.0-8.0); NEUTROPHILS # 11.2 10^3/uL (1.5-8.5); NEUTROPHILS % 92.3 % (36.0-66.0); RED BLOOD COUNT 2.36 10^6/uL (4.30-6.10); WHITE BLOOD COUNT 12.1 10^3/uL (4.0-10.0)
[2023-10-07 05:11] LABS: INR 1.59; PARTIAL THROMBOPLASTIN TIME 35.2 SECONDS (24.8-34.2); PROTHROMBIN TIME 18.5 SECONDS (12.5-14.5)
[2023-10-07 05:30] LABS: CK-MB VALUE MASS < 1.0 NG/ML (<3.6); ETHYL ALCOHOL (ETHANOL) 0.007 % (0.000-0.010); LIPASE 45 U/L (12-53)
[2023-10-07 05:30] LABS: PLATELET COUNT, AUTOMATED 89 10^3/uL (150-450)
[2023-10-07 05:32] LABS: ALBUMIN 2.3 G/DL (3.2-5.2); ALKALINE PHOSPHATASE 37 U/L (46-116); ALT/SGPT 25 U/L (7.0-40); AST/SGOT 77 U/L (<34); BILIRUBIN,DIRECT 1.2 MG/DL (<0.4); BILIRUBIN,TOTAL 2.6 MG/DL (0.3-1.2); BLOOD UREA NITROGEN 43 MG/DL (9-23); CALCIUM LEVEL 8.2 MG/DL (8.3-10.6); CARBON DIOXIDE LEVEL 23 MMOL/L (20-31); CHLORIDE LEVEL 98 MMOL/L (98-107); GLOMERULAR FILTRATION RATE 36.5 (>49); GLUCOSE, FASTING 82 MG/DL (74-106); POTASSIUM SERUM 4.1 MMOL/L (3.5-5.1); SODIUM LEVEL 134 MMOL/L (136-145); TOTAL PROTEIN 6.4 G/DL (5.7-8.2)
[2023-10-07 05:33] LABS: CPK CREATINE PHOSPHOKINASE 31 U/L (46-171); MB/CK RELATIVE INDEX 3.22 (< OR =4)
[2023-10-07] MEDS: NS 500 ML IV ONE (06:00)
[2023-10-07 06:07] LABS: MAGNESIUM LEVEL 1.2 MG/DL (1.8-2.4)
[2023-10-07] MEDS: ASPIRIN 81MG CHEW TABLET PO ONE (06:08)
[2023-10-07 06:09] VITALS: TEMP 97.8
[2023-10-07] MEDS: AMIODARONE HCL 150 MG in IV 1 EA IV ONE (06:09)
[2023-10-07] MEDS: AMIODARONE HCL 360 MG in IV 1 EA IV SCH (06:15)
[2023-10-07 06:27] LABS: CK-MB VALUE MASS < 1.0 NG/ML (<3.6)
[2023-10-07 06:28] LABS: CPK CREATINE PHOSPHOKINASE 31 U/L (46-171); MB/CK RELATIVE INDEX 3.22 (< OR =4)
[2023-10-07 06:45] VITALS: BP 75/40; O2SAT 97
== END 2023-10-07 07:02 | disposition short-term general hospital (02) ==
LOC: EDBD 03:40 → M ED 03:40
DX: I47.20 Ventricular tachycardia, unspecified (principal); I48.91 Unspecified atrial fibrillation; I10 Essential (primary) hypertension; F10.10 Alcohol abuse, uncomplicated; Z79.899 Other long term (current) drug therapy; Z79.810 Long term (current) use of selective estrogen receptor modulators (SERMs)
CPT/HCPCS: 71045; 80048; 80076; 82077; 82140; 82550; 82553; 83605; 83690; 83735; 84484; 85025; 85049; 85055; 85610; 85730; 87040; 87077; 87186; 87486; 87581; 87633; 87798; 93005; 93041; 96374; 96375; 99291; J0283

== ENCOUNTER 2023-12-16 15:19 | Observation (INO) | payer MEDICARE ==
[~2023-12-16] VITALS: Ht 180.3 cm; Wt 144.5 kg
[2023-12-16] VITALS (8 sets, daily range): BP systolic 104–117; BP diastolic 51–69; TEMP 97.2–98.9; O2SAT 97–100
[~2023-12-16 15:19] MED LIST changes: +AMIO200T49 PO; +B-1100TA2 PO; +FOLI400T5 PO
[2023-12-16] MEDS ORDERED: MIDODRINE 5 MG TAB PO SCH (16:00)
[2023-12-16 16:59] LABS: BASO % 0.7 % (0.0-1.0); EOS # 0.2 10^3/uL (0.0-0.5); EOS % 3.9 % (0.0-3.0); LYMPH # 0.7 10^3/uL (1.5-5.0); LYMPH % 15.2 % (24.0-44.0); MEAN CORPUSCULAR HEMOGLOBIN 29.1 pg (27.0-33.0); MEAN CORPUSCULAR HGB CONC 30.4 g/dl (32.0-36.5); MEAN CORPUSCULAR VOLUME 95.6 fl (80.0-96.0); MONO # 0.7 10^3/uL (0.0-0.8); MONO % 15.9 % (2.0-8.0); NEUTROPHILS # 2.8 10^3/uL (1.5-8.5); NEUTROPHILS % 63.6 % (36.0-66.0); PLATELET COUNT, AUTOMATED 107 10^3/uL (150-450); RED BLOOD COUNT 2.03 10^6/uL (4.30-6.10); WHITE BLOOD COUNT 4.4 10^3/uL (4.0-10.0)
[2023-12-16 17:00] LABS: HEMATOCRIT 19.4 % (42.0-52.0); HEMOGLOBIN 5.9 g/dl (13.5-17.5)
[2023-12-16 17:22] LABS: INR 1.52; PARTIAL THROMBOPLASTIN TIME 52.5 SECONDS (24.8-34.2); PROTHROMBIN TIME 17.8 SECONDS (12.5-14.5)
[2023-12-16 17:29] LABS: LIPASE 59 U/L (12-53)
[2023-12-16 17:30] LABS: CPK CREATINE PHOSPHOKINASE 24 U/L (46-171); MB/CK RELATIVE INDEX 4.16 (< OR =4)
[2023-12-16 17:31] LABS: ALBUMIN 2.7 G/DL (3.2-5.2); ALKALINE PHOSPHATASE 51 U/L (46-116); ALT/SGPT 22 U/L (7.0-40); AST/SGOT 40 U/L (<34); BILIRUBIN,DIRECT 1.1 MG/DL (<0.4); BLOOD UREA NITROGEN 42 MG/DL (9-23); CALCIUM LEVEL 9.1 MG/DL (8.3-10.6); CARBON DIOXIDE LEVEL 25 MMOL/L (20-31); CHLORIDE LEVEL 100 MMOL/L (98-107); CREATININE FOR GFR 2.11 MG/DL (0.70-1.30); FERRITIN 31.1 NG/ML (10.5-307.3); GLOMERULAR FILTRATION RATE 34.3 (>49); GLUCOSE, FASTING 138 MG/DL (74-106); IRON (FE) 21 UG/DL (65-175); PERCENT SATURATION 5.7 % (19.7-50.0); POTASSIUM SERUM 4.4 MMOL/L (3.5-5.1); SODIUM LEVEL 131 MMOL/L (136-145); TOTAL IRON BINDING CAPACITY 371 UG/DL (250-425); TOTAL PROTEIN 7.4 G/DL (5.7-8.2)
[2023-12-16 17:32] LABS: FOLATE 18.35 NG/ML (>5.4)
[2023-12-16] MEDS: PANTOPRAZOLE 40MG VIAL IV ONE (17:32)
[2023-12-16 17:35] LABS: VITAMIN B12 LEVEL > 2000 PG/ML (211-911)
[2023-12-16] MEDS: MORPHINE 2 MG/ML 1ML VIAL IV ONE (17:57)
[2023-12-16] MEDS: LACTULOSE 20GM/30ML SYRUP UDC PO ONE (17:58)
[2023-12-16] MEDS: LACTULOSE 20GM/30ML SYRUP UDC PO SCH (18:00)
[2023-12-16] MEDS ORDERED: MOM 30ML SUSPENSION UDC PO PRN (18:25)
[2023-12-16] MEDS ORDERED: ACETAMINOPHEN TAB 650MG DOSE (2X325MG) PO PRN (18:25)
[2023-12-16] MEDS ORDERED: MAALOX 30 ML SUSP *UDC PO PRN (18:25)
[2023-12-16] MEDS ORDERED: LACT10SO3 PO (19:10)
[2023-12-16] MEDS ORDERED: FOLI0.4T5 PO (19:10)
[2023-12-16] MEDS ORDERED: MAGN400T2 PO (19:10)
[2023-12-16] MEDS ORDERED: THIA100T7 PO (19:10)
[2023-12-16] MEDS ORDERED: ACET-897 PO (19:10)
[2023-12-16] MEDS ORDERED: HOME MED LIST COMPLETE! XX SCH (19:15)
[2023-12-16] MEDS: DOCUSATE SODIUM 100MG CAPSULE PO SCH (21:00)
[2023-12-16] MEDS: MAGNESIUM OXIDE 400MG TAB (MAG-OX) PO SCH (21:09)
[2023-12-17] VITALS (10 sets, daily range): BP systolic 106–131; BP diastolic 50–65; TEMP 97.5–98.1; O2SAT 94–99
[2023-12-17 06:05] LABS: BASO % 0.5 % (0.0-1.0); EOS # 0.1 10^3/uL (0.0-0.5); HEMATOCRIT 22.5 % (42.0-52.0); LYMPH # 0.6 10^3/uL (1.5-5.0); LYMPH % 14.8 % (24.0-44.0); MEAN CORPUSCULAR HEMOGLOBIN 28.5 pg (27.0-33.0); MEAN CORPUSCULAR HGB CONC 30.7 g/dl (32.0-36.5); MONO # 0.6 10^3/uL (0.0-0.8); MONO % 14.5 % (2.0-8.0); NEUTROPHILS # 2.9 10^3/uL (1.5-8.5); RED BLOOD COUNT 2.42 10^6/uL (4.30-6.10); WHITE BLOOD COUNT 4.3 10^3/uL (4.0-10.0)
[2023-12-17 06:32] LABS: CALCIUM LEVEL 8.9 MG/DL (8.3-10.6); CREATININE FOR GFR 2.18 MG/DL (0.70-1.30); MAGNESIUM LEVEL 1.9 MG/DL (1.8-2.4); POTASSIUM SERUM 4.9 MMOL/L (3.5-5.1)
[2023-12-17 06:39] LABS: HEMOGLOBIN 6.9 g/dl (13.5-17.5); PLATELET COUNT, AUTOMATED 85 10^3/uL (150-450)
[2023-12-17] MEDS: FUROSEMIDE 20MG/2ML VIAL IV ONE (08:27)
[2023-12-17] MEDS: FERRIC CARBOXYMALTOSE INJ 750 MG, VIAL MATE ADAPTER 1 EACH in NS 250 ML IV ONE (08:27)
[2023-12-17] MEDS: MULTIVITAMINS/MINERALS THERAP 1 TAB PO SCH (08:27)
[2023-12-17] MEDS: PANTOPRAZOLE 40MG TAB (PROTONIX) PO SCH (08:28)
[2023-12-17] MEDS: THIAMINE 100 MG TAB PO SCH (08:28)
[2023-12-17] MEDS: MIDODRINE 5 MG TAB PO SCH (08:28)
[2023-12-17] MEDS: FOLIC ACID 1MG TAB PO SCH (08:28)
[2023-12-17] MEDS: BUMETANIDE 1 MG TAB PO SCH (08:29)
[2023-12-17] MEDS: AMIODARONE 200 MG TAB (PACERONE) PO SCH (08:29)
[2023-12-17] MEDS: SPIRONOLACTONE 50 MG TAB PO SCH (08:29)
[2023-12-17] MEDS: VITAMIN D 1,000 INTERNATIONAL UNITS TABLET PO SCH (08:29)
[2023-12-17] MEDS ORDERED: FERR325T3 PO (11:22)
[2023-12-17 17:33] LABS: HEMATOCRIT 25.9 % (42.0-52.0); HEMOGLOBIN 8.4 g/dl (13.5-17.5); MEAN CORPUSCULAR HEMOGLOBIN 29.3 pg (27.0-33.0); MEAN CORPUSCULAR HGB CONC 32.4 g/dl (32.0-36.5); MEAN CORPUSCULAR VOLUME 90.2 fl (80.0-96.0); RED BLOOD COUNT 2.87 10^6/uL (4.30-6.10); WHITE BLOOD COUNT 4.8 10^3/uL (4.0-10.0)
[2023-12-17 17:39] LABS: PLATELET COUNT, AUTOMATED 83 10^3/uL (150-450)
[2023-12-17] MEDS: SODIUM CHLORIDE 0.9% INJ 10 ML SYR IV PRN (18:24)
== END 2023-12-17 18:46 | disposition home or self-care (01) ==
LOC: M ED 15:19 → M ED INP 18:24 → M MSPAV 22:40
PROVIDERS: ADMIT Internal Medicine; ATTEND Internal Medicine
DX: D64.9 Anemia, unspecified (principal); E87.1 Hypo-osmolality and hyponatremia; I12.9 Hypertensive chronic kidney disease with stage 1 through stage 4 chronic kidney disease, or unspecified chronic kidney disease; I48.91 Unspecified atrial fibrillation; Z98.890 Other specified postprocedural states; G47.33 Obstructive sleep apnea (adult) (pediatric); R16.2 Hepatomegaly with splenomegaly, not elsewhere classified; K74.60 Unspecified cirrhosis of liver; K76.0 Fatty (change of) liver, not elsewhere classified; N18.30 Chronic kidney disease, stage 3 unspecified; K76.6 Portal hypertension; M10.9 Gout, unspecified; K21.9 Gastro-esophageal reflux disease without esophagitis; R11.2 Nausea with vomiting, unspecified; R04.0 Epistaxis; R06.02 Shortness of breath; Z87.81 Personal history of (healed) traumatic fracture; Z79.899 Other long term (current) drug therapy
CPT/HCPCS: 36415; 36430; 80048; 80076; 82140; 82550; 82553; 82607; 82728; 82746; 83550; 83605; 83690; 84466; 84484; 85025; 85046; 85610; 85730; 86850; 86900; 86901; 86920; 93005; 93041; 96374; 96375; 99285; C9113; G0378; G0463; P9016

== ENCOUNTER → 2024-02-15 | Outpatient (REF) | payer MEDICARE ==
[~2024-02-15] MED LIST changes: +ACET-897 PO; +FOLI0.4T5 PO; +LACT10SO3 PO; +MAGN400T2 PO; +THIA100T7 PO
[2024-02-15 11:08] LABS: HEMATOCRIT 25.7 % (42.0-52.0); HEMOGLOBIN 8.5 g/dl (13.5-17.5); MEAN CORPUSCULAR HEMOGLOBIN 33.2 pg (27.0-33.0); MEAN CORPUSCULAR HGB CONC 33.1 g/dl (32.0-36.5); MEAN CORPUSCULAR VOLUME 100.4 fl (80.0-96.0); PLATELET COUNT, AUTOMATED 109 10^3/uL (150-450); RED BLOOD COUNT 2.56 10^6/uL (4.30-6.10); WHITE BLOOD COUNT 4.7 10^3/uL (4.0-10.0)
[2024-02-15 11:27] LABS: INR 1.47; PROTHROMBIN TIME 17.3 SECONDS (12.5-14.5)
[2024-02-15 11:49] LABS: ALBUMIN 2.4 G/DL (3.2-5.2); BILIRUBIN,TOTAL 2.6 MG/DL (0.3-1.2); CALCIUM LEVEL 9.5 MG/DL (8.3-10.6); CREATININE FOR GFR 1.85 MG/DL (0.70-1.30); FERRITIN 105.3 NG/ML (10.5-307.3); GLOMERULAR FILTRATION RATE 39.9 (>49); POTASSIUM SERUM 4.7 MMOL/L (3.5-5.1); TOTAL PROTEIN 7.3 G/DL (5.7-8.2)
== END ==
LOC: M LAB REF 10:42
PROVIDERS: ATTEND Internal Medicine Gastroenterology
DX: K70.30 Alcoholic cirrhosis of liver without ascites (principal); R16.2 Hepatomegaly with splenomegaly, not elsewhere classified; R94.5 Abnormal results of liver function studies; K55.20 Angiodysplasia of colon without hemorrhage; K44.9 Diaphragmatic hernia without obstruction or gangrene; I85.00 Esophageal varices without bleeding

== ENCOUNTER 2024-03-17 21:10 | Inpatient (IN) | payer MEDICARE ==
[~2024-03-17] VITALS: Ht 213.4 cm; Wt 140.1 kg
[2024-03-17 21:52] LABS: BASO % 0.6 % (0.0-1.0); EOS # 0.1 10^3/uL (0.0-0.5); EOS % 1.8 % (0.0-3.0); HEMATOCRIT 24.5 % (42.0-52.0); HEMOGLOBIN 7.9 g/dl (13.5-17.5); LYMPH # 0.4 10^3/uL (1.5-5.0); LYMPH % 8.8 % (24.0-44.0); MEAN CORPUSCULAR HEMOGLOBIN 31.9 pg (27.0-33.0); MEAN CORPUSCULAR HGB CONC 32.2 g/dl (32.0-36.5); MEAN CORPUSCULAR VOLUME 98.8 fl (80.0-96.0); MONO # 0.6 10^3/uL (0.0-0.8); MONO % 11.8 % (2.0-8.0); NEUTROPHILS # 3.8 10^3/uL (1.5-8.5); NEUTROPHILS % 76.6 % (36.0-66.0); RED BLOOD COUNT 2.48 10^6/uL (4.30-6.10)
[2024-03-17 21:53] LABS: PLATELET COUNT, AUTOMATED 85 10^3/uL (150-450)
[2024-03-17 22:02] LABS: INR 1.44; PROTHROMBIN TIME 17.1 SECONDS (12.5-14.5)
[2024-03-17 22:27] LABS: ALBUMIN 2.7 G/DL (3.2-5.2); ALKALINE PHOSPHATASE 42 U/L (46-116); ALT/SGPT 26 U/L (7.0-40); AST/SGOT 66 U/L (<34); BILIRUBIN,DIRECT 1.3 MG/DL (<0.4); BILIRUBIN,TOTAL 2.6 MG/DL (0.3-1.2); BLOOD UREA NITROGEN 55 MG/DL (9-23); CALCIUM LEVEL 9.3 MG/DL (8.3-10.6); CARBON DIOXIDE LEVEL 26 MMOL/L (20-31); CHLORIDE LEVEL 105 MMOL/L (98-107); CREATININE FOR GFR 2.67 MG/DL (0.70-1.30); GLOMERULAR FILTRATION RATE 26.1 (>49); GLUCOSE, FASTING 127 MG/DL (74-106); POTASSIUM SERUM 5.4 MMOL/L (3.5-5.1); SODIUM LEVEL 134 MMOL/L (136-145); TOTAL PROTEIN 7.6 G/DL (5.7-8.2)
[2024-03-17 22:30] LABS: THYROID STIMULATING HORMONE 5.545 uIU/ML (0.55-4.78)
[2024-03-17] MEDS: LACTULOSE 20GM/30ML SYRUP UDC PO ONE (22:39)
[2024-03-17 23:20] LABS: ETHYL ALCOHOL (ETHANOL) 0.004 % (0.000-0.010)
[2024-03-17 23:21] LABS: CK-MB VALUE MASS < 1.0 NG/ML (<3.6)
[2024-03-17 23:44] LABS: CPK CREATINE PHOSPHOKINASE 40 U/L (46-171)
[2024-03-18] MEDS ORDERED: MOM 30ML SUSPENSION UDC PO PRN (00:30)
[2024-03-18] MEDS ORDERED: MAALOX 30 ML SUSP *UDC PO PRN (00:30)
[2024-03-18 01:20] LABS: MAGNESIUM LEVEL 2.2 MG/DL (1.8-2.4)
[2024-03-18 01:21] LABS: SALICYLATE LEVEL < 3.0 MG/DL (<30)
[2024-03-18 01:47] LABS: VENOUS BASE EXCESS 0.1 (-2.0-2.0); VENOUS HCO3 24.8 MMOL/L (23.0-27.0); VENOUS O2 SATURATION 98.6 % (60.0-80.0); VENOUS PARTIAL PRESSURE CO2 40.8 mmHg (38.0-50.0); VENOUS PARTIAL PRESSURE O2 144.5 mmHg (30.0-50.0); VENOUS PH 7.402 UNITS (7.330-7.430); VENOUS STANDARD HCO3 24.6 MMOL/L; VENOUS TOTAL CO2 26.1 MMOL/L (24.0-28.0)
[2024-03-18] MEDS ORDERED: BISO5TAB14 PO (03:29)
[2024-03-18] MEDS ORDERED: NADO20TA PO (03:29)
[2024-03-18] MEDS ORDERED: HOME MED LIST COMPLETE! XX SCH ×2 (03:30→15:15)
[2024-03-18 04:52] VITALS: BP 97/58; TEMP 96.5; O2SAT 100
[2024-03-18 04:56] LABS: AMPHETAMINES LEVEL URINE NEGATIVE (NEGATIVE)
[2024-03-18 04:57] LABS: BARBITURATES URINE NEGATIVE (NEGATIVE); BENZODIAZEPINES URINE NEGATIVE (NEGATIVE); CANNABINOIDS URINE NEGATIVE (NEGATIVE); COCAINE METABOLITE URINE NEGATIVE (NEGATIVE); METHADONE URINE NEGATIVE (NEGATIVE); OPIATES URINE NEGATIVE (NEGATIVE); PHENCYCLIDINE URINE NEGATIVE (NEGATIVE)
[2024-03-18] MEDS: LACTULOSE 20GM/30ML SYRUP UDC NG SCH ×2 (05:03→14:29)
[2024-03-18 05:17] LABS: HEMATOCRIT 26.8 % (42.0-52.0); HEMOGLOBIN 8.5 g/dl (13.5-17.5); MEAN CORPUSCULAR HEMOGLOBIN 31.4 pg (27.0-33.0); MEAN CORPUSCULAR HGB CONC 31.7 g/dl (32.0-36.5); MEAN CORPUSCULAR VOLUME 98.9 fl (80.0-96.0); PLATELET COUNT, AUTOMATED 106 10^3/uL (150-450); RED BLOOD COUNT 2.71 10^6/uL (4.30-6.10); WHITE BLOOD COUNT 4.8 10^3/uL (4.0-10.0)
[2024-03-18 05:41] LABS: ALBUMIN 2.9 G/DL (3.2-5.2); BILIRUBIN,TOTAL 3.1 MG/DL (0.3-1.2); CALCIUM LEVEL 9.6 MG/DL (8.3-10.6); CREATININE FOR GFR 2.62 MG/DL (0.70-1.30); GLOMERULAR FILTRATION RATE 26.7 (>49); MAGNESIUM LEVEL 2.2 MG/DL (1.8-2.4); POTASSIUM SERUM 5.1 MMOL/L (3.5-5.1)
[2024-03-18] MEDS ORDERED: LACTULOSE 20GM/30ML SYRUP UDC NG SCH (06:00)
[2024-03-18] MEDS ORDERED: LACTULOSE 20GM/30ML SYRUP UDC PO SCH (06:00)
[2024-03-18] MEDS ORDERED: GLUCOSE 4 GM CHEW NG PRN (07:55)
[2024-03-18] MEDS ORDERED: GLUCAGON INJ 1MG VIAL SC PRN (07:55)
[2024-03-18] MEDS ORDERED: DEXTROSE 50% 50ML SYRINGE IV PRN (07:55)
[2024-03-18 08:00] VITALS: BP 114/64; TEMP 96.5; O2SAT 100
[2024-03-18] MEDS ORDERED: MIDODRINE 5 MG TAB PO SCH (08:00)
[2024-03-18] MEDS: MIDODRINE 5 MG TAB NG SCH (08:48)
[2024-03-18] MEDS: SPIRONOLACTONE 50 MG TAB NG SCH (08:49)
[2024-03-18] MEDS ORDERED: DOCUSATE SODIUM 100MG CAPSULE PO SCH (09:00)
[2024-03-18] MEDS ORDERED: NADOLOL 20MG TABLET PO SCH (09:00)
[2024-03-18] MEDS ORDERED: SPIRONOLACTONE 50 MG TAB PO SCH (09:00)
[2024-03-18] MEDS: LACTULOSE 20GM/30ML SYRUP UDC PR ONE (10:41)
[2024-03-18] MEDS: rifAXIMin 550 MG TAB (XIFAXAN) PO SCH (10:41)
[2024-03-18 12:49] VITALS: BP 108/55; TEMP 96.9; O2SAT 100
[2024-03-18] MEDS: NADOLOL 20MG TABLET NG SCH (13:03)
[2024-03-18] MEDS ORDERED: MED REC COMMENT (15:14)
[2024-03-18 16:00] VITALS: BP 133/71; TEMP 96.8; O2SAT 100
[2024-03-18] MEDS: NS 1,000 ML IV SCH (18:31)
[2024-03-18 19:44] VITALS: BP 105/57; TEMP 97.3; O2SAT 100
[2024-03-18] MEDS ORDERED: LACTULOSE 20GM/30ML SYRUP UDC NG PRN (20:15)
[2024-03-19] VITALS (9 sets, daily range): BP systolic 105–131; BP diastolic 55–67; TEMP 96.7–98.5; O2SAT 85–100
[2024-03-19] MEDS: LACTULOSE 20GM/30ML SYRUP UDC NG SCH (03:11)
[2024-03-19 06:10] LABS: BASO % 0.3 % (0.0-1.0); EOS # 0.2 10^3/uL (0.0-0.5); EOS % 2.6 % (0.0-3.0); HEMATOCRIT 26.9 % (42.0-52.0); HEMOGLOBIN 8.2 g/dl (13.5-17.5); LYMPH # 0.7 10^3/uL (1.5-5.0); LYMPH % 11.3 % (24.0-44.0); MEAN CORPUSCULAR HEMOGLOBIN 30.8 pg (27.0-33.0); MEAN CORPUSCULAR HGB CONC 30.5 g/dl (32.0-36.5); MEAN CORPUSCULAR VOLUME 101.1 fl (80.0-96.0); MONO # 0.9 10^3/uL (0.0-0.8); MONO % 14.2 % (2.0-8.0); NEUTROPHILS # 4.6 10^3/uL (1.5-8.5); NEUTROPHILS % 71.1 % (36.0-66.0); RED BLOOD COUNT 2.66 10^6/uL (4.30-6.10); WHITE BLOOD COUNT 6.5 10^3/uL (4.0-10.0)
[2024-03-19 06:22] LABS: CALCIUM LEVEL 9.9 MG/DL (8.3-10.6); CREATININE FOR GFR 2.23 MG/DL (0.70-1.30); GLOMERULAR FILTRATION RATE 32.2 (>49); MAGNESIUM LEVEL 2.1 MG/DL (1.8-2.4); POTASSIUM SERUM 4.8 MMOL/L (3.5-5.1)
[2024-03-19 06:25] LABS: PLATELET COUNT, AUTOMATED 98 10^3/uL (150-450)
[2024-03-20] VITALS (8 sets, daily range): BP systolic 98–120; BP diastolic 52–62; TEMP 96.9–98.3; O2SAT 94–100
[2024-03-20 08:21] LABS: CREATININE FOR GFR 1.96 MG/DL (0.70-1.30); GLOMERULAR FILTRATION RATE 37.3 (>49); MAGNESIUM LEVEL 1.9 MG/DL (1.8-2.4); POTASSIUM SERUM 4.8 MMOL/L (3.5-5.1)
[2024-03-20] MEDS: HEPARIN SOD (PORCINE) 5000UNITS/ML 1ML VIAL/SYRINGE SC SCH (21:00)
[2024-03-21 05:03] VITALS: BP 120/60; TEMP 98.1; O2SAT 99
[2024-03-21 07:53] VITALS: BP 117/56; TEMP 99.1; O2SAT 97
[2024-03-21 08:34] LABS: HEMATOCRIT 26.7 % (42.0-52.0); HEMOGLOBIN 8.2 g/dl (13.5-17.5)
[2024-03-21 09:00] LABS: CALCIUM LEVEL 9.3 MG/DL (8.3-10.6); CREATININE FOR GFR 1.96 MG/DL (0.70-1.30); GLOMERULAR FILTRATION RATE 37.3 (>49); MAGNESIUM LEVEL 1.8 MG/DL (1.8-2.4)
[2024-03-21] MEDS: PERCOCET 5MG/325MG TAB PO PRN (11:01)
[2024-03-21] MEDS: LIDOCAINE 5% (LIDODERM) PATCH TD SCH (11:05)
[2024-03-21 12:07] VITALS: BP 107/57; TEMP 97.8; O2SAT 92
[2024-03-21 14:35] VITALS: BP 99/56; TEMP 97.7; O2SAT 97
[2024-03-21 20:00] VITALS: BP 104/60; TEMP 97.7; O2SAT 96
[2024-03-22] VITALS (8 sets, daily range): BP systolic 89–136; BP diastolic 60–99; TEMP 97.9–100.4; O2SAT 90–95
[2024-03-22] MEDS: oxyCODONE 5MG TAB PO PRN (10:45)
[2024-03-22 14:37] LABS: CALCIUM LEVEL 8.6 MG/DL (8.3-10.6); CREATININE FOR GFR 2.33 MG/DL (0.70-1.30); GLOMERULAR FILTRATION RATE 30.6 (>49); MAGNESIUM LEVEL 1.7 MG/DL (1.8-2.4); POTASSIUM SERUM 6.4 MMOL/L (3.5-5.1)
[2024-03-22] MEDS: DEXTROSE 50% 50ML SYRINGE IV STA (15:01)
[2024-03-22] MEDS: CALCIUM GLUCONATE 1,000 MG in D5W MINI-BAG PLUS 100 ML IV ONE (15:07)
[2024-03-22] MEDS: HumuLIN R (REGULAR) INSULIN (NovoLIN R) **100U/ML** PER UNIT IV STA (15:07)
[2024-03-22] MEDS: NS 1,000 ML IV ONE (15:31)
[2024-03-22] MEDS: ALBUTEROL SULFATE 2.5MG/0.5ML INH NEB SOLN NEB STA (15:32)
[2024-03-22] MEDS: ALBUTEROL SULFATE 2.5MG/0.5ML INH NEB SOLN NEB ONE (16:09)
[2024-03-22] MEDS: OCTREOTIDE ACETATE 100MCG/ML VIAL **SC ADMINISTRATION ONLY SC SCH (16:51)
[2024-03-22 17:35] LABS: HEMOGLOBIN 7.5 g/dl (13.5-17.5); MEAN CORPUSCULAR HEMOGLOBIN 32.1 pg (27.0-33.0); MEAN CORPUSCULAR HGB CONC 31.3 g/dl (32.0-36.5); MEAN CORPUSCULAR VOLUME 102.6 fl (80.0-96.0); RED BLOOD COUNT 2.34 10^6/uL (4.30-6.10); WHITE BLOOD COUNT 12.1 10^3/uL (4.0-10.0)
[2024-03-22 17:44] LABS: CALCIUM LEVEL 8.9 MG/DL (8.3-10.6); CREATININE FOR GFR 2.45 MG/DL (0.70-1.30); GLOMERULAR FILTRATION RATE 28.9 (>49)
[2024-03-22 18:09] LABS: PLATELET COUNT, AUTOMATED 99 10^3/uL (150-450)
[2024-03-22 18:11] LABS: LYMPHOCYTES 10 % (16-44); MONOCYTES 6 % (0-5); NEUTROPHILS 84 % (28-66)
[2024-03-22 18:12] LABS: ANISOCYTOSIS 1+; PLATELET ESTIMATE DECREASED (NORMAL); POLYCHROMASIA 1+
[2024-03-22] MEDS: SOD POLYSTYRENE SULFONATE SUSP 15GM 60ML UD PO ONE (18:40)
[2024-03-22 21:23] LABS: CALCIUM LEVEL 9.1 MG/DL (8.3-10.6); CREATININE FOR GFR 2.74 MG/DL (0.70-1.30); GLOMERULAR FILTRATION RATE 25.4 (>49); POTASSIUM SERUM 5.8 MMOL/L (3.5-5.1)
[2024-03-23] VITALS (9 sets, daily range): BP systolic 91–100; BP diastolic 55–58; TEMP 98.1–100.7; O2SAT 94–97
[2024-03-23 03:31] LABS: CREATININE FOR GFR 3.07 MG/DL (0.70-1.30); GLOMERULAR FILTRATION RATE 22.2 (>49); POTASSIUM SERUM 5.5 MMOL/L (3.5-5.1)
[2024-03-23 07:49] LABS: CALCIUM LEVEL 8.4 MG/DL (8.3-10.6); CREATININE FOR GFR 3.08 MG/DL (0.70-1.30); GLOMERULAR FILTRATION RATE 22.2 (>49); MAGNESIUM LEVEL 1.8 MG/DL (1.8-2.4); POTASSIUM SERUM 5.6 MMOL/L (3.5-5.1)
[2024-03-23] MEDS: DEXTROSE 50% 50ML SYRINGE IV STA (08:06)
[2024-03-23] MEDS: HumuLIN R (REGULAR) INSULIN (NovoLIN R) **100U/ML** PER UNIT IV STA (08:07)
[2024-03-23] MEDS ORDERED: oxyCODONE 5MG TAB PO PRN (09:00)
[2024-03-23] MEDS: SOD POLYSTYRENE SULFONATE SUSP 15GM 60ML UD PO ONE (09:36)
[2024-03-23] MEDS: LACTULOSE 20GM/30ML SYRUP UDC PR ONE (10:51)
[2024-03-23 10:54] LABS: BASO % 0.4 % (0.0-1.0); EOS # 0.1 10^3/uL (0.0-0.5); EOS % 0.5 % (0.0-3.0); HEMATOCRIT 23.5 % (42.0-52.0); HEMOGLOBIN 7.5 g/dl (13.5-17.5); LYMPH # 0.6 10^3/uL (1.5-5.0); LYMPH % 6.7 % (24.0-44.0); MEAN CORPUSCULAR HEMOGLOBIN 32.5 pg (27.0-33.0); MEAN CORPUSCULAR HGB CONC 31.9 g/dl (32.0-36.5); MEAN CORPUSCULAR VOLUME 101.7 fl (80.0-96.0); MONO # 1.7 10^3/uL (0.0-0.8); MONO % 18.3 % (2.0-8.0); NEUTROPHILS # 6.9 10^3/uL (1.5-8.5); NEUTROPHILS % 73.5 % (36.0-66.0); PLATELET COUNT, AUTOMATED 100 10^3/uL (150-450); RED BLOOD COUNT 2.31 10^6/uL (4.30-6.10); WHITE BLOOD COUNT 9.3 10^3/uL (4.0-10.0)
[2024-03-23 11:21] LABS: CALCIUM LEVEL 8.4 MG/DL (8.3-10.6); CREATININE FOR GFR 3.11 MG/DL (0.70-1.30); GLOMERULAR FILTRATION RATE 21.9 (>49); POTASSIUM SERUM 5.3 MMOL/L (3.5-5.1)
[2024-03-23] MEDS ORDERED: LACTULOSE 20GM/30ML SYRUP UDC PO SCH (12:00)
[2024-03-23] MEDS ORDERED: GLUCOSE 4 GM CHEW PO PRN (13:40)
[2024-03-23] MEDS: LACTULOSE 20GM/30ML SYRUP UDC PO SCH (14:15)
[2024-03-23] MEDS: MIDODRINE 5 MG TAB PO SCH (15:13)
[2024-03-23] MEDS: ACETAMINOPHEN TAB 650MG DOSE (2X325MG) PO ONE (15:13)
[2024-03-23] MEDS: cefTRIAXone SOD 2 GM in D5W MINI-BAG PLUS 50 ML IV SCH (15:14)
[2024-03-23] MEDS: oxyCODONE 5MG TAB PO PRN (21:21)
[2024-03-24] MEDS: BISOPROLOL FUM 2.5 MG PER 1/2TAB PO SCH (08:22)
[2024-03-24] MEDS ORDERED: LORazepam 1 MG TAB PO PRN (11:30)
[2024-03-24] MEDS ORDERED: PATIROMER SORBITEX CALCIUM 8.4 GM POWDER PACKET (VELTASSA) PO SCH (12:00)
[2024-03-24] MEDS: MORPHINE 10MG/0.5ML ORAL CONCENTRATE SOLUTION U/D SL SCH (12:38)
[2024-03-24] MEDS: MORPHINE 10MG/0.5ML ORAL CONCENTRATE SOLUTION U/D SL PRN ×2 (14:47→23:24)
[2024-03-25] MEDS: MORPHINE 10MG/0.5ML ORAL CONCENTRATE SOLUTION U/D SL PRN (11:56)
[2024-03-25] MEDS: LACTULOSE 20GM/30ML SYRUP UDC PO SCH (14:00)
[2024-03-25] MEDS ORDERED: LACTULOSE 20GM/30ML SYRUP UDC PO SCH (14:00)
[2024-03-25] MEDS: MORPHINE 10MG/0.5ML ORAL CONCENTRATE SOLUTION U/D SL SCH (14:02)
== END 2024-03-26 06:45 | disposition expired | DRG 432 ==
LOC: EDBD 21:10 → M ED 21:10 → M ED INP 23:49 → M ICU 03-18 04:42 → M PCU 03-18 10:48 → M MSPAV 03-21 14:37
PROVIDERS: ADMIT Family Medicine; ATTEND Student in an Organized Health Care Education/Training Program
PROC: B246ZZZ Ultrasonography of Right and Left Heart (ICD-10-PCS; principal; 2024-03-19)
DX: K70.30 Alcoholic cirrhosis of liver without ascites (principal); G92.8 Other toxic encephalopathy; K76.7 Hepatorenal syndrome; E72.20 Disorder of urea cycle metabolism, unspecified; I13.0 Hypertensive heart and chronic kidney disease with heart failure and stage 1 through stage 4 chronic kidney disease, or unspecified chronic kidney disease; K76.6 Portal hypertension; D61.818 Other pancytopenia; N17.9 Acute kidney failure, unspecified; E87.1 Hypo-osmolality and hyponatremia; I48.20 Chronic atrial fibrillation, unspecified; I85.00 Esophageal varices without bleeding; Z66 Do not resuscitate; K76.82 Hepatic encephalopathy; K76.0 Fatty (change of) liver, not elsewhere classified; E87.5 Hyperkalemia; N18.30 Chronic kidney disease, stage 3 unspecified; I89.0 Lymphedema, not elsewhere classified; K21.9 Gastro-esophageal reflux disease without esophagitis; I50.9 Heart failure, unspecified; E66.9 Obesity, unspecified; Z79.899 Other long term (current) drug therapy; I08.3 Combined rheumatic disorders of mitral, aortic and tricuspid valves; I27.20 Pulmonary hypertension, unspecified; G47.33 Obstructive sleep apnea (adult) (pediatric); W19.XXXA Unspecified fall, initial encounter; K72.90 Hepatic failure, unspecified without coma